=== PATIENT | male | born 1945 | race Caucasian/White ===

== ENCOUNTER → 2017-07-05 | Outpatient (CLI) | payer OTHER ==
[2017-07-05 12:12] LABS: BASO % 0.6 %; BASO ABS # 0.04 K/uL (0-0.2); COMPLETE YES; EOS % 2.4 %; HEMATOCRIT 45.2 % (42-52); IG% 0.1 %; LYMPH % 19.5 %; LYMPH ABS # 1.35 K/uL (1.2-3.4); MEAN CORPUSCULAR HEMOGLOBIN 31.1 pg (25-34); MEAN CORPUSCULAR HGB CONC 33.4 g/dl (32-36); MEAN PLATELET VOLUME 11.5 fL (7.4-10.4); MONO % 8.1 %; NEUT % 69.3 %; PLATELET COUNT 180 K/uL (130-400); RED BLOOD COUNT 4.86 M/uL (4.7-6.1); WHITE BLOOD COUNT 6.94 K/uL (4.8-10.8)
[2017-07-05 13:02] LABS: ALT/SGPT 24 U/L (12-78); BLOOD UREA NITROGEN 34 mg/dl (7-18); BUN/CREATININE RATIO 25.9 (10-20); CALCIUM 9.1 mg/dl (8.5-10.1); CARBON DIOXIDE 27 mmol/L (21-32); CHLORIDE 105 mmol/L (98-107); CHOLESTEROL 88 mg/dl (0-200); GLUCOSE 102 mg/dl (70-99); POTASSIUM 3.8 mmol/L (3.5-5.1); SODIUM 139 mmol/L (136-145); TRIGLYCERIDES 122 mg/dl (0-150); VERY LOW DENSITY LIPOPROT CALC 24 mg/dl
[2017-07-05 13:05] LABS: ALB/GLOB RATIO 0.8 (0.9-2); ALKALINE PHOSPHATASE 45 U/L (45-117); AST/SGOT 23 U/L (15-37); CHOLESTEROL/HDL RATIO 2.3; HDL CHOLESTEROL 38 mg/dl; LDL CHOLESTEROL CALCULATED 26 mg/dl
== END | disposition home or self-care (01) ==
LOC: C.LABPBG 07:53
PROVIDERS: ATTEND Internal Medicine
DX: G47.33 Obstructive sleep apnea (adult) (pediatric) (principal); M10.9 Gout, unspecified

== ENCOUNTER → 2017-10-25 | Outpatient (CLI) | payer OTHER ==
[2017-10-25 12:48] LABS: BLOOD UREA NITROGEN 26 mg/dl (7-18); CREATININE 1.11 mg/dl (0.60-1.40)
== END | disposition home or self-care (01) ==
LOC: C.LABPBG 10:22
PROVIDERS: ATTEND Neuromusculoskeletal Medicine & OMM
DX: R97.20 Elevated prostate specific antigen [PSA] (principal); N40.0 Benign prostatic hyperplasia without lower urinary tract symptoms

== ENCOUNTER 2021-07-01 11:42 | Observation (INO) ==
[2021-07-01] MEDS ORDERED: HYDROmorphone INJ 0.5 MG/0.5 ML SYR ONE (11:49)
[2021-07-01] MEDS ORDERED: MoRPHine SULFATE 4 MG/ML 1 ML CARP\\VIAL IV PRN (11:50)
[2021-07-01] MEDS ORDERED: SODIUM CHLORIDE 0.9% 1000ML 1,000 ML IV STA (11:50)
[2021-07-01] MEDS ORDERED: ONDANSETRON INJ 2 MG/ML 2 ML VIAL IV STA (11:50)
--- NOTE | 2021-07-01 11:58 | Emergency Department Note ---
Impression & Plan Incarcerated right inguinal hernia ED Provider Note NAME: ANAND PATEL AGE: 76 SEX: M : 1945 ARRIVES VIA: Ambulance INFORMANT: Patient, EMS ED PROVIDER(S): Carlos Russo DO CHIEF COMPLAINT: Abdominal pain HPI: The patient is a 76-year-old male who presented to the emergency department by ambulance for an evaluation of abdominal pain. The patient was noted to have a right inguinal hernia over the last month. Symptoms have slowly been worsening. The patient presents emergency department today because of nausea vo miting and worsening pain in his right lower quadrant. He states normally the hernia will reduce somewhat but this morning he has been able to reduce the hernia. He called 911. He received pain medicine and nausea medicine prior to arrival. He has had no fever or cough. He was not seen by his primary care physician recently but was seen initially when he started having the symptoms of hernia. He has a history of a similar episode on the left side. He was not seen by a surgeon. Pain he states is moderate to severe. The patient states the pain is worsened with any movement or palpation of the lower abdomen. ROS: See above HPI for pertinent positives & negatives. A total of 10 systems reviewed and were otherwise negative. PAST MEDICAL HISTORY: See Below PAST SURGICAL HISTORY: See Below FAMILY HISTORY: See Below SOCIAL HISTORY: See Below HOME MEDICATIONS: See Below ALLERGIES: See Below VITALS: See Below PHYSICAL EXAMINATION: GENERAL: The patient is awake and alert. The patient is very anxious appearing and appears to be in severe pain. EYES: The conjunctivae are clear. The pupils are round and reactive. EARS, NOSE, MOUTH AND THROAT: The nose is without any evidence of any deformity. NECK: The neck is nontender and supple. RESPIRATORY: Normal respiratory effort is noted there is no evidence of wheezing rhonchi or rales CARDIOVASCULAR: Regular rate and rhythm noted there no murmurs rubs or gallops normal S1 normal S2. GASTROINTESTINAL: The abdomen is distended and significantly tender especially in the right lower quadrant. There is mild guarding in the right lower quadrant. : There is a large right inguinal hernia noted. It is very tender and difficult to palpate without severe pain to the patient. This area is unable to be reduced at this time. MUSCULOSKELETAL/EXTREMITIES: There is no evidence of gross deformity full range of motion is noted in the hips and shoulders. SKIN: Skin is cool and diaphoretic. There was no significant pedal edema. NEUROLOGIC: Patient is awake alert and oriented x3. MEDICAL DECISION MAKING: The patient is a 76-year-old male who presented to the emergency department for an evaluation of abdominal pain and vomiting. The patient has a history of a r ight inguinal hernia. This appears to have become incarcerated after having a bowel movement prior to arrival. The patient was in very severe pain. He was treated multiple times with pain medication. Multiple attempts were made to reduce the hernia however I was unsuccessful. I discussed his case with the on- call general surgeon. He was evaluated in the emergency department by general surgery. He was felt to be a good candidate for surgical intervention. The patient was agreeable to this plan. He was taken directly to the OR for surgical intervention. Triage Nursing notes reviewed. Prior medical records reviewed Vital Signs: reviewed and remarkable for hypotension and tachycardia. Differential diagnosis: Etiologies such as appendicitis, diverticulitis, obstruction, inflammatory bowel disease, renal colic, PUD, biliary pathology, pancreatitis, mesenteric ischemia, aortic pathology, infections, genitourinary, UTI, perforated viscus, as well as others were entertained. ER treatment provided: See below Diagnostics interpreted by me: ECG: EKG was obtained in the emergency department. My interpretation is sinus bradycardia 53 bpm. First-degree AV block was noted. Right bundle branch block pattern was noted. No previous tracing was available For comparison. Cardiac Monitoring: An order was placed for continuous cardiac monitoring. The monitor shows a rate of 101 bpm with sinus tachycardia rhythm. Laboratory studies: As stated above and show below. Imaging studies: See below Consultation(s): 1200: I discussed this case with Debora Xiao who was covering for general surgery. They will evaluate the patient as soon as possible in the emergency department. ] Past Med/Surg History Medical History (Updated 07/01/21 @ 18:23 by Carlos Russo DO) Arthritis, multiple joint involvement Hypertension Obstructive sleep apnea, adult Surgical History H/O oral surgery S/P hernia repair 1982-Inguinal hernia S/P knee surgery Left knee-1983 Family History Mother Brain tumor Hypertension Father Lymphoma Denies family history of Ovarian cancer Prostate cancer Myocardial infarction Breast cancer Colorectal cancer Social History Smoking Status: Former smoker Age Started Using Tobacco: 18; Age Quit Using Tobacco: 39; Cigarettes Per Day: 6-10; Second Hand Exposure: No; Hx Alcohol Use: Yes Alcohol type: beer Alcohol Intake Frequency: Monthly or Less Hx Substance Use: No Preferred Language: Mauritian Communication Ability: Effective Visual Impairment: Limited Hearing Ability: Use of Hearing Aid Nuclear Weapons Specialist Required: No Beliefs That Will Affect Care: None marital status: Current Living Situation: Spouse and Family current occupational status: retired Feels Safe at Home: Yes Childhood Exposure to Second-Hand Smoke: Yes caffeine: Yes (Coffee x 3-4 per day.) during the past year weight has: remained stable Dental Care, Regularly: No Physical Activity Frequency: 1-2 Times per Week Seatbelt Use: always Sunscreen Use: No Assistive Devices: Glasses Allergies Allergies Allergy/AdvReac Type Severity Reaction Status Date / Time codeine AdvReac NOSEBLEED Verified 12/22/20 08:35 Home Meds Home Medications Medication Instructions Recorded Confirmed cholecalciferol (vitamin D3) 50 50 mcg PO DAILY 12/22/20 12/22/20 mcg (2,000 unit) capsule Previous Rx's Medication Instructions Recorded allopurinol 100 mg tablet 200 mg PO DAILY #180 tab 09/08/20 hydrochlorothiazide 25 mg tablet 25 mg PO DAILY #90 tab 09/08/20 lisinopril 30 mg tablet 30 mg PO DAILY #90 tab 09/08/20 metoprolol tartrate 25 mg tablet 25 mg PO BID #180 tab 09/08/20 simvastatin 40 mg tablet 40 mg PO DAILY #90 tab 09/08/20 tamsulosin 0.4 mg capsule 0.4 mg PO DAILY #90 cap 06/15/21 tamsulosin 0.4 mg capsule 0.4 mg PO HS #14 cap 06/15/21 Results & Data (ED) Vital Signs Vital Signs - 24 hr 07/01/21 11:15 07/01/21 11:45 07/01/21 11:50 Temperature 36.4 C L 36.6 C Temperature Source Oral Oral Pulse Rate 59 L 59 L Pulse Rate [Left Finger] Pulse Rhythm Regular Regular Pulse Rhythm [Left Finger] Pulse Strength Normal Pulse Strength [Left Finger] Respiratory Rate 20 22 Respiratory Effort / Characteristics Non-Labored Spontaneous Nasal Congestion Respiratory Depth Normal Respiratory Pattern Blood Pressure 102/59 L Blood Pressure [Left Arm] Blood Pressure Mean 73 Blood Pressure Mean [Left Arm] Blood Pressure Position Lying Blood Pressure Position [Left Arm] Pulse Oximetry 99 99 Oxygen Delivery Method Room Air Room Air Sepsis Recent Fever Within 48 Hours No Sepsis New/Unexplained Change in Mental Status No Sepsis Action Taken by Nursing No Action Required 07/01/21 12:34 07/01/21 12:44 07/01/21 12:46 Temperature 36.5 C Temperature Source Oral Pulse Rate 77 80 Pulse Rate [Left Finger] 71 Pulse Rhythm Pulse Rhythm [Left Finger] Regular Pulse Strength Pulse Strength [Left Finger] Normal Respiratory Rate 29 H 18 27 H Respiratory Effort / Characteristics Non-Labored Spontaneous Respiratory Depth Normal Respiratory Pattern Regular Blood Pressure 177/89 H 172/104 H Blood Pressure [Left Arm] 177/89 H Blood Pressure Mean 118 126 Blood Pressure Mean [Left Arm] 118 Blood Pressure Position Blood Pressure Position [Left Arm] Lying Pulse Oximetry 100 99 99 Oxygen Delivery Method Room Air Sepsis Recent Fever Within 48 Hours Sepsis New/Unexplained Change in Mental Status Sepsis Action Taken by Detention Medications Current Medication List: was personally reviewed by me Laboratory Data Attestation: I reviewed the patient's lab results. Result diagrams: 07/02/21 06:36 07/01/21 11:23 Lab Results 07/01/21 07/01/21 07/01/21 Range/Units 11:23 11:23 11:23 WBC 11.36 H (4.8-10.8) K/uL RBC 4.79 (4.7-6.1) M/uL Hgb 15.5 (14.0-18.0) g/dL Hct 44.8 (42-52) % MCV 93.5 (80-100) fL MCH 32.4 (25-34) pg MCHC 34.6 (32-36) g/dL RDW Std Deviation 48.0 H (36.4-46.3) fL RDW Coeff of Maurice 14.1 (11.5-14.5) % Plt Count 193 (130-400) K/uL MPV 11.4 H (7.4-10.4) fL Immature Gran % (Auto) 0.2 % Neut % (Auto) 86.4 % Lymph % (Auto) 8.7 % [place] % (Auto) 3.8 % Eos % (Auto) 0.7 % Baso % (Auto) 0.2 % Neut # (Auto) 9.82 H (1.4-6.5) K/uL Lymph # (Auto) 0.99 L (1.2-3.4) K/uL [place] # (Auto) 0.43 (0.11-0.59) K/uL Eos # (Auto) 0.08 (0-0.5) K/uL Baso # (Auto) 0.02 (0-0.2) K/uL Immature Gran # (Auto) 0.02 (0.00-0.02) K/uL PT Cancelled INR Cancelled APTT Cancelled PTT Ratio Cancelled Sodium 141 (136-145) mmol/L Potassium 3.4 L (3.5-5.1) mmol/L Chloride 107 (98-107) mmol/L Carbon Dioxide 24 (21-32) mmol/L Anion Gap 10.0 (3-11) BUN 23 H (7-18) mg/dl Creatinine 1.25 (0.6-1.4) mg/dl Est Cr Clr Drug Dosing 50.3 ml/min Est GFR ( Amer) 64.4 ml/min Est GFR (Non-Af Amer) 55.6 ml/min BUN/Creatinine Ratio 18.5 (10-20) Glucose 152 H (70-99) mg/dl Calcium 9.5 (8.5-10.1) mg/dl Total Bilirubin 0.5 (0.2-1) mg/dl AST 20 (15-37) U/L ALT 25 (12-78) U/L Alkaline Phosphatase 44 L (45-117) U/L Troponin I < 0.015 (0-0.045) ng/ml Total Protein 8.1 (6.4-8.2) gm/dl Albumin 3.7 (3.4-5.0) gm/dl Globulin 4.4 H (2.5-4.0) gm/dl Albumin/Globulin Ratio 0.8 L (0.9-2) Lipase 213 (73-393) U/L COVID-19 Eval Order SARS-CoV-2, RNA, NAAT (NEGATIVE) 07/01/21 07/01/21 07/01/21 Range/Units 12:08 12:08 12:53 WBC (4.8-10.8) K/uL RBC (4.7-6.1) M/uL Hgb (14.0-18.0) g/dL Hct (42-52) % MCV (80-100) fL MCH (25-34) pg MCHC (32-36) g/dL RDW Std Deviation (36.4-46.3) fL RDW Coeff of Maurice (11.5-14.5) % Plt Count (130-400) K/uL MPV (7.4-10.4) fL Immature Gran % (Auto) % Neut % (Auto) % Lymph % (Auto) % [place] % (Auto) % Eos % (Auto) % Baso % (Auto) % Neut # (Auto) (1.4-6.5) K/uL Lymph # (Auto) (1.2-3.4) K/uL [place] # (Auto) (0.11-0.59) K/uL Eos # (Auto) (0-0.5) K/uL Baso # (Auto) (0-0.2) K/uL Immature Gran # (Auto) (0.00-0.02) K/uL PT 10.9 INR 1.1 APTT 26.2 PTT Ratio 1.0 Sodium (136-145) mmol/L Potassium (3.5-5.1) mmol/L Chloride (98-107) mmol/L Carbon Dioxide (21-32) mmol/L Anion Gap (3-11) BUN (7-18) mg/dl Creatinine (0.6-1.4) mg/dl Est Cr Clr Drug Dosing ml/min Est GFR ( Amer) ml/min Est GFR (Non-Af Amer) ml/min BUN/Creatinine Ratio (10-20) Glucose (70-99) mg/dl Calcium (8.5-10.1) mg/dl Total Bilirubin (0.2-1) mg/dl AST (15-37) U/L ALT (12-78) U/L Alkaline Phosphatase (45-117) U/L Troponin I (0-0.045) ng/ml Total Protein (6.4-8.2) gm/dl Albumin (3.4-5.0) gm/dl Globulin (2.5-4.0) gm/dl Albumin/Globulin Ratio (0.9-2) Lipase (73-393) U/L COVID-19 Eval Order Covid19 IDNow [facility] SARS-CoV-2, RNA, NAAT NEGATIVE (NEGATIVE) Administered Medications Lactated Ringer's (Lr) 1,000 mls @ 80 mls/hr IV .[id number] [facility] Stop: 07/31/21 16:49 Last Infusion: 07/02/21 05:43 Dose: 80 mls/hr Documented by: [id number] Admin: 07/02/21 05:26 Dose: 80 mls/hr Documented by: [id number] Infusion: 07/02/21 05:26 Dose: 80 mls/hr Documented by: [id number] Admin: 07/01/21 18:39 Dose: 80 mls/hr Documented by: [id number] Cefazolin Sodium (Ancef 1000mg) 1,000 mg in 7.5 mls @ 2.5 mls/min IV Q8H [facility] Stop: 07/02/21 20:59 Last Admin: 07/02/21 12:40 Dose: 2.5 mls/min Documented by: [id number] Admin: 07/02/21 05:23 Dose: 2.5 mls/min Documented by: [id number] Admin: 07/01/21 20:33 Dose: 2.5 mls/min Documented by: [id number] Discontinued Medications Bacitracin (Bacitracin Oint 15 Gm Tube) Confirm Administered Dose 45 appln .ROUTE .STK-MED ONE Stop: 07/01/21 12:36 Last Admin: 07/01/21 14:57 Dose: 1 appln Documented by: [id number] Bupivacaine HCl (Bupivacaine 0.5 % 5 Mg/1 Ml Mpf 30ml Vial) Confirm Administered Dose 30 ml .ROUTE .STK-MED ONE Stop: 07/01/21 12:36 Last Admin: 07/01/21 14:58 Dose: 20 ml Documented by: [id number] Cefazolin Sodium (Cefazolin 2,000 Mg/15 Ml Iv Push) Confirm Administered Dose 2,000 mg IV .STK-MED ONE Stop: 07/01/21 13:10 Last Admin: 07/01/21 13:40 Dose: Not Given Documented by: [id number] Hydromorphone HCl (Hydromorphone Inj 0.5 Mg/0.5 Ml Syr) Confirm Administered Dose 0.5 mg .ROUTE .STK-MED ONE Stop: 07/01/21 11:50 Last Admin: 07/01/21 11:50 Dose: 0.5 mg Documented by: [id number] Hydromorphone HCl (Hydromorphone Inj 0.5 Mg/0.5 Ml Syr) 0.5 mg IV Q15M PRN PRN Reason: Pain Stop: 07/15/21 11:49 Last Admin: 07/01/21 12:51 Dose: 0.5 mg Documented by: [id number] Admin: 07/01/21 12:32 Dose: 0.5 mg Documented by: [id number] Admin: 07/01/21 12:03 Dose: 0.5 mg Documented by: [id number] Sodium Chloride (Nss 1000ml) 1,000 mls @ 999 mls/hr IV .Q1H1M STA Stop: 07/01/21 12:50 Last Infusion: 07/01/21 13:05 Dose: 0 mls/hr Documented by: [id number] Admin: 07/01/21 11:50 Dose: 999 mls/hr Documented by: [id number] Cefazolin Sodium (Ancef 2000mg) 2,000 mg in 15 mls @ 3.75 mls/min IV PREOP ONE Stop: 07/01/21 13:09 Last Admin: 07/01/21 13:35 Dose: 3.75 mls/min Documented by: [id number] Lidocaine HCl (Lidocaine 1% Local 20 Ml Vial) Confirm Administered Dose 20 ml .ROUTE .STK-MED ONE Stop: 07/01/21 12:36 Last Admin: 07/01/21 14:58 Dose: 20 ml Documented by: [id number] Morphine Sulfate (Morphine Sulfate 4 Mg/Ml 1 Ml Carp\Vial) 4 mg IV Q15M PRN PRN Reason: Pain Stop: 07/15/21 11:49 Last Admin: 07/01/21 12:20 Dose: 4 mg Documented by: [id number] Ondansetron HCl (Ondansetron Inj 2 Mg/Ml 2 Ml Vial) 4 mg IV NOW STA Stop: 07/01/21 11:51 Last Admin: 07/01/21 12:03 Dose: 4 mg Documented by: [id number] Imaging Data Radiologist's Impression: Chest X-Ray 07/01/21 11:50 XR chest 1V portable CLINICAL HISTORY: RLQ pain COMPARISON STUDY: No previous studies for comparison. FINDINGS: Lung volumes are diminished. There is apparent elevation/eventration of the right hemidiaphragm. There is apparent pulmonary vascular congestion without overt pulmonary edema. No consolidation is identified. IMPRESSION: 1. Low lung volumes. Right basilar opacity which likely reflects elevation/eventration of the right hemidiaphragm. However, follow-up PA and lateral chest radiographs are recommended. 2. Pulmonary vascular congestion without overt pulmonary edema. ACT 112: Negative or not required by law. Electronically signed by: Thaddeus Hamm M.D. 07/01/2021 1:17 PM KUB X-Ray 07/01/21 11:50 XR KUB/Abdomen 1 view CLINICAL HISTORY: rlwq pain COMPARISON STUDY: No previous studies for comparison. FINDINGS: Slightly dilated loop of small bowel measuring 3.4 cm in diameter is seen within right upper quadrant. Few loops of large bowel are nondilated. Paucity of gas is seen within left lower quadrant and pelvic region which could be due to fluid-fi lled loops of bowel, size cannot be evaluated. Right hemidiaphragm is outside of [id number] which makes evaluation suboptimal. Mild degenerative changes of the spine. IMPRESSION: 1. Mildly dilated loop of small bowel within the right upper quadrant. Short- term follow-up is suggested. 2. Paucity of gas within left lower quadrant and pelvis which could be due to fluid-filled loops of bowel. 3. Right hemidiaphragm is partially outside of [id number]. ACT 112: Negative or not required by law. The above report was generated using voice recognition software. It may contain grammatical, syntax or spelling errors. Electronically signed by: Manuela Haddad DO 07/01/2021 1:39 PM Discharge Plan Visit Data Chief Complaint: Abdominal Pain Stated Complaint: AB PAIN ED Provider: Carlos Russo Discharge Problem: Incarcerated right inguinal hernia Patient Disposition: Admitted As Inpatient Condition: Good Discharge Instructions Interventions: ED Discharge Assessment Last Done: 07/01/21 13:06
[2021-07-01] MEDS: HYDROmorphone INJ 0.5 MG/0.5 ML SYR IV PRN ×3 (12:03→12:51)
[2021-07-01 12:25] LABS: Basophils # (auto) 0.02 K/uL (0-0.2); Basophils % (auto) 0.2 %; Eosinophils # (auto) 0.08 K/uL (0-0.5); Eosinophils % (auto) 0.7 %; Hematocrit (blood only) 44.8 % (42-52); Hemoglobin 15.5 g/dL (14.0-18.0); Immature Granulocytes # (auto) 0.02 K/uL (0.00-0.02); Immature Granulocytes % (auto) 0.2 %; Lymphocytes # (auto) 0.99 K/uL (1.2-3.4); Lymphocytes % (auto) 8.7 %; Mean Corpuscular Hemoglobin 32.4 pg (25-34); Mean Corpuscular Hgb Conc 34.6 g/dL (32-36); Mean Corpuscular Volume 93.5 fL (80-100); Mean Platelet Volume 11.4 fL (7.4-10.4); Monocytes # (auto) 0.43 K/uL (0.11-0.59); Monocytes % (auto) 3.8 %; Neutrophils # (auto) 9.82 K/uL (1.4-6.5); Neutrophils % (auto) 86.4 %; Platelet Count 193 K/uL (130-400); RDW Coefficient of Variation 14.1 % (11.5-14.5); Red Blood Count 4.79 M/uL (4.7-6.1); White Blood Count 11.36 K/uL (4.8-10.8)
[2021-07-01] MEDS ORDERED: BUPIVACAINE 0.5 % 5 MG/1 ML MPF 30ML VIAL ONE (12:35)
[2021-07-01] MEDS ORDERED: LIDOCAINE 1% LOCAL 20 ML VIAL ONE (12:35)
[2021-07-01] MEDS ORDERED: BACITRACIN OINT 15 GM TUBE ONE (12:35)
--- NOTE | 2021-07-01 12:40 | History & Physical Report ---
Date of Service July 01, 2021 Assessment & Plan (1) Incarcerated right inguinal hernia: Plan: 76 year-old male presented to ED via ambulance due to right groin pain and large incarcerated scrotal hernia. Large irreducible right inguinal hernia extending to scrotum causing scrotal edema and very tender to palpation. Abdomen is soft. Patient in distress due to pain but able to communication. Vitals stable. Plan: Discussed with patient need for operative repair given the incarcerated hernia and risk of strangulation and bowel ischemia. Informed consent obtained. COVID preop keep npo EKG preop performed Will get [address] Lou was present during part of my examination. Examined patient and obtained consent. I ( Sheela Lou MD) reviewed pt's H/P, I recommend to do open repair incarcerated right inguinal hernia possible with mesh, D/w benefits, risks and alternatives of the surgery, pt understood, he agrees with surgery, he signed informed consent, I answered all questions, pre-op antibiotic, History of Present Illness Chief Complaint: groin pain Primary Care Provider: Shantanu Armendariz MD Selvin is a 76 year-old male who presented to emergency department via ambulance due to right groin pain, enlarged hernia and vomiting that began this morning. Selvin states that he was having a bowel movement this morning and then noticed severe pain in his groin and then associated abdominal pain and vomiting. States he has known about a right groin hernia for a few months but never had this happen before. He has history of left inguinal hernia repair 20- 30 years ago. Last ate this morning , cereal but vomited. Last able to urinate was this morning. Rest of review of systems limited given patients distress secondary to pain. I entered the room while Dr. Russo was attempting to reduce the hernia but patient was in a lot of pain and hernia was unable to be reduced. Allergies Allergy/AdvReac Type Severity Reaction Status Date / Time codeine AdvReac NOSEBLEED Verified 12/22/20 08:35 Home Medications Medication Instructions Recorded Confirmed Type allopurinol 100 mg tablet 200 mg PO DAILY #180 tab 09/08/20 12/22/20 Rx hydrochlorothiazide 25 mg tablet 25 mg PO DAILY #90 tab 09/08/20 12/22/20 Rx lisinopril 30 mg tablet 30 mg PO DAILY #90 tab 09/08/20 12/22/20 Rx metoprolol tartrate 25 mg tablet 25 mg PO BID #180 tab 09/08/20 12/22/20 Rx simvastatin 40 mg tablet 40 mg PO DAILY #90 tab 09/08/20 12/22/20 Rx cholecalciferol (vitamin D3) 50 50 mcg PO DAILY 12/22/20 12/22/20 History mcg (2,000 unit) capsule tamsulosin 0.4 mg capsule 0.4 mg PO DAILY #90 cap 06/15/21 Rx tamsulosin 0.4 mg capsule 0.4 mg PO HS #14 cap 06/15/21 Rx Past Med/Surg History Medical History (Updated 07/01/21 @ 12:37 by Debora Xiao PA-C) Arthritis, multiple joint involvement Hypertension Obstructive sleep apnea, adult Surgical History H/O oral surgery S/P hernia repair 1982-Inguinal hernia S/P knee surgery Left knee-1983 Family History Mother Brain tumor Hypertension Father Lymphoma Denies family history of Ovarian cancer Prostate cancer Myocardial infarction Breast cancer Colorectal cancer Social History Smoking Status: Former smoker Age Started Using Tobacco: 18; Age Quit Using Tobacco: 39; Cigarettes Per Day: 6-10; Second Hand Exposure: No; Hx Alcohol Use: Yes Alcohol Intake Frequency: Monthly or Less Hx Substance Use: No Preferred Language: Upper Sorbian Communication Ability: Effective Visual Impairment: Limited Hearing Ability: Use of Hearing Aid Dumpman Required: No Beliefs That Will Affect Care: None marital status: Current Living Situation: Spouse current occupational status: retired Feels Safe at Home: Yes Childhood Exposure to Second-Hand Smoke: Yes caffeine: Yes (Coffee x 3-4 per day.) during the past year weight has: remained stable Dental Care, Regularly: No Physical Activity Frequency: 1-2 Times per Week Seatbelt Use: always Sunscreen Use: No Review of Systems Review of Systems: as per HPI, limited given patients distress Physical Exam Constitutional: + acute distress and cooperative; not ill appearing, not frail appearing, not combative and not diaphoretic Respiratory: normal respiratory effort, lungs clear to auscultation Cardiovascular: Rate/Rhythm: regular rhythm and + bradycardic Heart Sounds: normal S1 and normal S2 Gastrointestinal (Abdomen): Inspection/Auscultation: abdomen normal to inspection; abdomen not distended and + abnormal bowel sounds Percussion/Palpation: + abdomen tender (lower abdomen mostly on right side) and abdomen soft; no guarding and abdomen not rigid Large right inguinal hernia extending down to the scrotum that is incarcerated and nonreducible on examination. Skin: no rashes, warm and dry Psychiatric: Orientation: alert and oriented x 3 Genitourinary: + edematous scrotum and + inguinal hernia (large right inguinal scrotal hernia, irreducible, severely tender on exam) Results & Data Results & Data ([facility]) Vital Signs (Past 12 Hours) Vital Signs Temp Pulse Resp BP Pulse Ox 07/01/21 11:15 36.4 C L 59 L 20 102/59 L 99 Laboratory Results 07/01/21 07/01/21 07/01/21 Range/Units 12:08 12:08 11:23 WBC (4.8-10.8) K/uL RBC (4.7-6.1) M/uL Hgb (14.0-18.0) g/dL Hct (42-52) % MCV (80-100) fL MCH (25-34) pg MCHC (32-36) g/dL RDW Std Deviation (36.4-46.3) fL RDW Coeff of Maurice (11.5-14.5) % Plt Count (130-400) K/uL MPV (7.4-10.4) fL Immature Gran % (Auto) % Neut % (Auto) % Lymph % (Auto) % [place] % (Auto) % Eos % (Auto) % Baso % (Auto) % Neut # (Auto) (1.4-6.5) K/uL Lymph # (Auto) (1.2-3.4) K/uL [place] # (Auto) (0.11-0.59) K/uL Eos # (Auto) (0-0.5) K/uL Baso # (Auto) (0-0.2) K/uL Immature Gran # (Auto) (0.00-0.02) K/uL PT INR APTT PTT Ratio Sodium Pending Potassium Pending Chloride Pending Carbon Dioxide Pending Anion Gap Pending BUN Pending Creatinine Pending Est Cr Clr Drug Dosing Pending Est GFR ( Amer) Pending Est GFR (Non-Af Amer) Pending BUN/Creatinine Ratio Pending Glucose Pending Calcium Pending Total Bilirubin Pending AST Pending ALT Pending Alkaline Phosphatase Pending Troponin I Pending Total Protein Pending Albumin Pending Globulin Pending Albumin/Globulin Ratio Pending Lipase Pending COVID-19 [facility]-2, RNA, NAAT Pending 07/01/21 07/01/21 Range/Units 11:23 11:23 WBC 11.36 H (4.8-10.8) K/uL RBC 4.79 (4.7-6.1) M/uL Hgb 15.5 (14.0-18.0) g/dL Hct 44.8 (42-52) % MCV 93.5 (80-100) fL MCH 32.4 (25-34) pg MCHC 34.6 (32-36) g/dL RDW Std Deviation 48.0 H (36.4-46.3) fL RDW Coeff of Maurice 14.1 (11.5-14.5) % Plt Count 193 (130-400) K/uL MPV 11.4 H (7.4-10.4) fL Immature Gran % (Auto) 0.2 % Neut % (Auto) 86.4 % Lymph % (Auto) 8.7 % [place] % (Auto) 3.8 % Eos % (Auto) 0.7 % Baso % (Auto) 0.2 % Neut # (Auto) 9.82 H (1.4-6.5) K/uL Lymph # (Auto) 0.99 L (1.2-3.4) K/uL [place] # (Auto) 0.43 (0.11-0.59) K/uL Eos # (Auto) 0.08 (0-0.5) K/uL Baso # (Auto) 0.02 (0-0.2) K/uL Immature Gran # (Auto) 0.02 (0.00-0.02) K/uL PT Cancelled INR Cancelled APTT Cancelled PTT Ratio Cancelled Sodium Potassium Chloride Carbon Dioxide Anion Gap BUN Creatinine Est Cr Clr Drug Dosing Est GFR ( Amer) Est GFR (Non-Af Amer) BUN/Creatinine Ratio Glucose Calcium Total Bilirubin AST ALT Alkaline Phosphatase Troponin I Total Protein Albumin Globulin Albumin/Globulin Ratio Lipase COVID-19 Eval Order SARS-CoV-2, RNA, NAAT Code Status & VTE Plan VTE Prophylaxis Plan VTE Prophylaxis will be ordered: Yes
[2021-07-01 12:45] LABS: Albumin Level 3.7 gm/dl (3.4-5.0); BUN Creatinine Ratio 18.5 (10-20); Blood Urea Nitrogen 23 mg/dl (7-18); Calcium 9.5 mg/dl (8.5-10.1); Carbon Dioxide 24 mmol/L (21-32); Chloride 107 mmol/L (98-107); Creatinine Clr Calc Pharmacy 50.3 ml/min; Est GFR (African American) 64.4 ml/min; Est GFR (Non-African American) 55.6 ml/min; Glucose 152 mg/dl (70-99); Lipase 213 U/L (73-393); Potassium 3.4 mmol/L (3.5-5.1); Sodium 141 mmol/L (136-145)
[2021-07-01 12:50] LABS: Alanine Aminotransferase 25 U/L (12-78); Albumin Globulin Ratio 0.8 (0.9-2); Alkaline Phosphatase 44 U/L (45-117); Aspartate Aminotransferase 20 U/L (15-37); Bilirubin,Total 0.5 mg/dl (0.2-1); Globulin 4.4 gm/dl (2.5-4.0); Total Protein 8.1 gm/dl (6.4-8.2); Troponin I < 0.015 ng/ml (0-0.045)
[2021-07-01] MEDS ORDERED: PROPOFOL IV EMULSION 10 MG/ML 20 ML VIAL IV ONE (12:51)
[2021-07-01] MEDS ORDERED: LIDOCAINE 2% 2 ML VIAL/AMP(20MG/ML) INFIL ONE (12:51)
[2021-07-01] MEDS ORDERED: MIDAZOLAM HCL 1 MG/ML 2ML VIAL ONE (12:51)
[2021-07-01] MEDS ORDERED: NEOSTIGMINE METHYLSULFATE 1 MG/ML 10ML VIAL ONE (12:51)
[2021-07-01] MEDS ORDERED: GLYCOPYRROLATE 0.2 MG/ML VIAL ONE ×2 (12:51→14:22)
[2021-07-01] MEDS ORDERED: fentaNYL citrate 100 MCG/2 ML VIAL ONE ×2 (12:51)
[2021-07-01] MEDS ORDERED: ONDANSETRON INJ 2 MG/ML 2 ML VIAL ONE (12:51)
[2021-07-01] MEDS ORDERED: DEXAMETHASONE SOD INJ 4 MG/ML VIAL ONE (12:51)
[2021-07-01] MEDS ORDERED: ePHEDrine sulfate 50 MG/ML SYR ONE (13:03)
[2021-07-01] MEDS ORDERED: PHENYLEPHRINE 100MCG/ML 5ML SYR ONE (13:03)
[2021-07-01] MEDS ORDERED: ceFAZolin 2000MG 2,000 MG/15 ML SYR IV ONE (13:06)
--- NOTE | 2021-07-01 13:06 | History & Physical Bridge Note ---
Date of Service July 01, 2021 History & Physical Bridge Note I have examined the patient, reviewed the History & Physical and in the interval since the performance of the History & Physical I have noted the following changes of clinical significance: no changes noted
[2021-07-01] MEDS ORDERED: ceFAZolin 2,000 MG/15 ML IV PUSH IV ONE (13:09)
--- NOTE | 2021-07-01 13:18 | XRay Report ---
XR chest 1V portable CLINICAL HISTORY: RLQ pain COMPARISON STUDY: No previous studies for comparison. FINDINGS: Lung volumes are diminished. There is apparent elevation/eventration of the right hemidiaph ragm. There is apparent pulmonary vascular congestion without overt pulmonary edema. No consolidation is identified. IMPRESSION: 1. Low lung volumes. Right basilar opacity which likely reflects elevation/eventration of the right h emidiaphragm. However, follow-up PA and lateral chest radiographs are recommended. 2. Pulmonary vascular congestion without overt pulmonary edema. ACT 112: Negative or not required by law. Electronically signed by: Thaddeus Hamm M.D. 07/01/2021 1:17 PM
[2021-07-01 13:19] LABS: INR 1.1 (0.9-1.1); Partial Thromboplastin Time 26.2 Seconds (21.0-31.0); Prothrombin Time 10.9 Seconds (9.0-12.0)
--- NOTE | 2021-07-01 13:28 | Anesthesiology Consultation ---
Date of Service July 01, 2021 Assessment & Plan (1) Encounter for pre-operative examination: Chart Review Chart Review: Acceptable Risk for Surgery and Patient NOT seen in Pre Admission Testing Consults Requested none History Surgery Operation Date: 07/01/21 09:40 Proposed Procedures p Right Incarcerated Inguinal Hernia Repair - Sheela Lou MD Height/Weight Height: 5 ft 9 in Weight: 81.4 kg Allergies Allergy/AdvReac Type Severity Reaction Status Date / Time codeine AdvReac NOSEBLEED Verified 12/22/20 08:35 Medications Home Medications Medication Instructions Recorded Confirmed Last Taken allopurinol 100 mg tablet 200 mg PO DAILY #180 tab 09/08/20 12/22/20 Unknown hydrochlorothiazide 25 mg tablet 25 mg PO DAILY #90 tab 09/08/20 12/22/20 Unknown lisinopril 30 mg tablet 30 mg PO DAILY #90 tab 09/08/20 12/22/20 Unknown metoprolol tartrate 25 mg tablet 25 mg PO BID #180 tab 09/08/20 12/22/20 Unknown simvastatin 40 mg tablet 40 mg PO DAILY #90 tab 09/08/20 12/22/20 Unknown cholecalciferol (vitamin D3) 50 50 mcg PO DAILY 12/22/20 12/22/20 Unknown mcg (2,000 unit) capsule tamsulosin 0.4 mg capsule 0.4 mg PO DAILY #90 cap 06/15/21 Unknown tamsulosin 0.4 mg capsule 0.4 mg PO HS #14 cap 06/15/21 Unknown Active Medications Generic Name Dose Route Start Last Admin Trade Name Freq PRN Reason Stop Dose Admin Hydromorphone HCl 0.5 mg 07/01/21 11:50 07/01/21 12:51 Hydromorphone Inj 0.5 Mg/0.5 Ml Syr IV 07/15/21 11:49 0.5 mg Q15M PRN Administration Pain Morphine Sulfate 4 mg 07/01/21 11:50 07/01/21 12:20 Morphine Sulfate 4 Mg/Ml 1 Ml Carp\Vial IV 07/15/21 11:49 4 mg Q15M PRN Administration Pain NPO Date Last Intake of Fluids: 07/01/21 Time Last Intake of Fluids: 06:00 Date Last Intake of Solids: 07/01/21 Time Last Intake of Solids: 06:00 Last Intake of Solids Comment: patient had emesis after eating this morning. Past Medical History Medical History (Updated 07/01/21 @ 13:27 by Reena Trujillo MD) Arthritis, multiple joint involvement Hypertension Obstructive sleep apnea, adult Exercise / Class Metabolic Activity III < 4 Walking/Shop/Light housework Past Family History Family History Mother Brain tumor Hypertension Father Lymphoma Denies family history of Ovarian cancer Prostate cancer Myocardial infarction Breast cancer Colorectal cancer Past Surgical History Surgical History H/O oral surgery S/P hernia repair 1982-Inguinal hernia S/P knee surgery Left knee-1983 Social History Smoking Status: Former smoker Smoking cigarettes per day: 6-10 Hx Alcohol Use: Yes Hx Substance Use: No Physical Exam Vital Signs Last Vital Signs Temp 36.5 C 07/01/21 12:44 Pulse 80 07/01/21 12:46 Resp 27 H 07/01/21 12:46 BP 172/104 H 07/01/21 12:46 Pulse Ox 99 07/01/21 12:46 Testing Laboratory Results 07/01/21 11:23 07/01/21 11:23 PT 10.9 Seconds (9.0-12.0) 07/01/21 12:53 INR 1.1 (0.9-1.1) 07/01/21 12:53 APTT 26.2 Seconds (21.0-31.0) 07/01/21 12:53 Electrocardiogram Date: 07/01/21 Findings: + SB @ (53) PACs, RBBB
--- NOTE | 2021-07-01 13:40 | XRay Report ---
XR KUB/Abdomen 1 view CLINICAL HISTORY: rlwq pain COMPARISON STUDY: No previous studies for comparison. FINDINGS: Slightly dilated loop of small bowel measuring 3.4 cm in diameter is seen within right upper quadrant . Few loops of large bowel are nondilated. Paucity of gas is seen within left lower quadrant and pelv ic region which could be due to fluid-filled loops of bowel, size cannot be evaluated. Right hemidiaphragm is outside of [id number] which makes evaluation suboptimal. Mild degenerative changes of the spine. IMPRESSION: 1. Mildly dilated loop of small bowel within the right upper quadrant. Short-term follow-up is sugge sted. 2. Paucity of gas within left lower quadrant and pelvis which could be due to fluid-filled loops of bowel. 3. Right hemidiaphragm is partially outside of [id number]. ACT 112: Negative or not required by law. The above report was generated using voice recognition software. It may contain grammatical, syntax o r spelling errors. Electronically signed by: Manuela Haddad DO 07/01/2021 1:39 PM
[2021-07-01] MEDS ORDERED: ATROPINE SULFATE 0.1 MG/ML 10ML SYR IV PRN (13:58)
[2021-07-01] MEDS ORDERED: fentaNYL citrate 100 MCG/2 ML VIAL IV PRN (13:58)
[2021-07-01] MEDS ORDERED: ePHEDrine sulfate 50 MG/ML AMP IV PRN (13:58)
[2021-07-01] MEDS ORDERED: ONDANSETRON INJ 2 MG/ML 2 ML VIAL IV PRN (13:58)
[2021-07-01] MEDS ORDERED: SUCCINYLCHOLINE 100MG/5ML SYR IV ONE (14:12)
[2021-07-01] MEDS ORDERED: ROCURONIUM BROMIDE 10 MG/ML 5 ML VIAL IV ONE (14:13)
[2021-07-01] MEDS ORDERED: PHENYLEPHRINE HCL 10 MG/ML VIAL ONE (14:29)
--- NOTE | 2021-07-01 15:00 | Post Operative Brief Note ---
Immediate Post Op Note v1 Date of Surgery July 01, 2021 Pre & Post Diagnosis Operation Date: 07/01/21 09:40 Pre-Op Diagnosis: incarcerated Right inguinal hernia Post-Op Diagnosis: incarcerated Right inguinal hernia I identified the patient and participated in the time-out.: Yes Procedure Operation Date: 07/01/21 09:40 Actual Procedures open repair Right Incarcerated Inguinal Hernia with mesh(Right) - Sheela Lou MD Surgeon Sheela Lou MD Reed Worker LESLIE Pedroza Estimated Blood Loss 10 Findings Consistent with Post-Op Diagnosis incarcerated right indirect inguinal hernia, contain small bowel, Fluids 1200ml Specimens hernia sac Drains Jerry Catheter (Placed in OR by Micah Laguerre RN, and removed after procedure) Anesthesia Type General Complications none Disposition Accompanied Patient To Recovery: Yes
[2021-07-01] MEDS ORDERED: SUGAMMADEX SODIUM 200 MG/2 ML VIAL IV ONE (15:17)
--- NOTE | 2021-07-01 16:19 | Anesthesiology Progress Note ---
Date of Service July 01, 2021 Anesthesia Post Procedure Vital Signs Vital Signs: Temp Pulse Pulse Pulse Resp BP BP 07/01/21 15:55 36.3 C L 111 H 16 122/77 07/01/21 15:50 124 H 22 120/75 07/01/21 15:40 107 H 14 103/68 07/01/21 15:30 96 H 12 96/63 L 07/01/21 15:24 36.3 C L 107 H 16 129/50 L 07/01/21 12:46 80 27 H 172/104 H 07/01/21 12:44 36.5 C 71 18 177/89 H 07/01/21 12:34 77 29 H 177/89 H 07/01/21 11:50 59 L 22 07/01/21 11:45 36.6 C 07/01/21 11:15 36.4 C L 59 L 20 102/59 L Pulse Ox 07/01/21 15:55 92 07/01/21 15:50 07/01/21 15:40 94 07/01/21 15:30 93 07/01/21 15:24 96 07/01/21 12:46 99 07/01/21 12:44 99 07/01/21 12:34 100 07/01/21 11:50 99 07/01/21 11:45 07/01/21 11:15 99 Pain Intensity Testicles: Pain Intensity: 9 Notes Mental Status: see notes below Patient Amnestic to Procedure: Yes Nausea / Vomiting: adequately controlled Pain: adequately controlled Airway Patency, RR, SpO2: stable & adequate BP & HR: stable & adequate Hydration State: stable & adequate Anesthetic Complications: see Notes below Notes: Pt hemodynamically stable and off oxygen in PACU. Pain appears to be well controlled. Pt currently delerius and not oriented to person/place/time. Trying to get out of bed, pull out IV, and pinching PACU staff. Post anesthesia delirium should improve significantly by tomorrow. Tonight pt may require addit ional support including possible 1 on 1. Floor notified and call placed to admitting hospitalist team to make sure they are aware.
[2021-07-01] MEDS ORDERED: HYDROmorphone INJ 0.5 MG/0.5 ML SYR IV PRN (16:50)
[2021-07-01] MEDS ORDERED: oxyCODONE/ACETAMINOPHEN 5mg/325mg TAB PO PRN (16:50)
--- NOTE | 2021-07-01 17:27 | Hospitalist Consultation ---
Date of Consultation July 01, 2021 History of Present Illness Attending Physician: Sheela Lou MD Allergies Allergy/AdvReac Type Severity Reaction Status Date / Time codeine AdvReac NOSEBLEED Verified 12/22/20 08:35 Home Medications Medication Instructions Recorded Confirmed Type allopurinol 100 mg tablet 200 mg PO DAILY #180 tab 09/08/20 12/22/20 Rx hydrochlorothiazide 25 mg tablet 25 mg PO DAILY #90 tab 09/08/20 12/22/20 Rx lisinopril 30 mg tablet 30 mg PO DAILY #90 tab 09/08/20 12/22/20 Rx metoprolol tartrate 25 mg tablet 25 mg PO BID #180 tab 09/08/20 12/22/20 Rx simvastatin 40 mg tablet 40 mg PO DAILY #90 tab 09/08/20 12/22/20 Rx cholecalciferol (vitamin D3) 50 50 mcg PO DAILY 12/22/20 12/22/20 History mcg (2,000 unit) capsule tamsulosin 0.4 mg capsule 0.4 mg PO DAILY #90 cap 06/15/21 Rx tamsulosin 0.4 mg capsule 0.4 mg PO HS #14 cap 06/15/21 Rx Patient History Medical History (Updated 07/01/21 @ 13:27 by Reena Trujillo MD) Arthritis, multiple joint involvement Hypertension Obstructive sleep apnea, adult Surgical History H/O oral surgery S/P hernia repair 1982-Inguinal hernia S/P knee surgery Left knee-1983 Family History Mother Brain tumor Hypertension Father Lymphoma Denies family history of Ovarian cancer Prostate cancer Myocardial infarction Breast cancer Colorectal cancer Social History Smoking Status: Former smoker Age Started Using Tobacco: 18; Age Quit Using Tobacco: 39; Cigarettes Per Day: 6-10; Second Hand Exposure: No; Hx Alcohol Use: Yes Alcohol Intake Frequency: Monthly or Less Hx Substance Use: No Preferred Language: Cuban Communication Ability: Effective Visual Impairment: Limited Hearing Ability: Use of Hearing Aid Feed Mill Lab Technician Required: No Beliefs That Will Affect Care: None marital status: Current Living Situation: Spouse current occupational status: retired Feels Safe at Home: Yes Childhood Exposure to Second-Hand Smoke: Yes caffeine: Yes (Coffee x 3-4 per day.) during the past year weight has: remained stable Dental Care, Regularly: No Physical Activity Frequency: 1-2 Times per Week Seatbelt Use: always Sunscreen Use: No Assistive Devices: Denture - Upper and Glasses Results & Data Results & Data ([facility]) Vital Signs (Past 12 Hours) Vital Signs Temp Pulse Pulse Pulse Pulse Pulse Resp 07/01/21 17:00 36.7 C 102 H 16 07/01/21 16:30 36.7 C 123 H 20 07/01/21 16:05 16 07/01/21 15:55 36.3 C L 111 H 16 07/01/21 15:50 124 H 22 07/01/21 15:40 107 H 14 07/01/21 15:30 96 H 12 07/01/21 15:24 36.3 C L 107 H 16 07/01/21 12:46 80 27 H 07/01/21 12:44 36.5 C 71 18 07/01/21 12:34 77 29 H 07/01/21 11:50 59 L 22 07/01/21 11:45 36.6 C 07/01/21 11:15 36.4 C L 59 L 20 BP BP Pulse Ox 07/01/21 17:00 91/56 L 92 07/01/21 16:30 127/80 94 07/01/21 16:05 92/77 L 07/01/21 15:55 122/77 92 07/01/21 15:50 120/75 07/01/21 15:40 103/68 94 07/01/21 15:30 96/63 L 93 07/01/21 15:24 129/50 L 96 07/01/21 12:46 172/104 H 99 07/01/21 12:44 177/89 H 99 07/01/21 12:34 177/89 H 100 07/01/21 11:50 99 07/01/21 11:45 07/01/21 11:15 102/59 L 99 PG Care Time/CCT Total # of Minutes Spent Total Time Spent with Patient: Total time spent is greater than 50% in coordination of care (as documented) at patient's floor/unit and/or counseling patient: Coding
[2021-07-01] MEDS: LACTATED RINGER'S 1,000 ML IV SCH (18:39)
--- NOTE | 2021-07-01 19:04 | Electrocardiogram Report ---
Test Reason : Blood Pressure : / mmHG Vent. Rate : 053 BPM Atrial Rate : 053 BPM P-R Int : 196 ms QRS Dur : 136 ms QT Int : 498 ms P-R-T Axes : 048 -42 024 degrees QTc Int : 467 ms Poor data quality, interpretation may be adversely affected Sinus bradycardia with Premature atrial complexes Left axis deviation Right bundle branch block Abnormal ECG No previous ECGs available Confirmed by Angel Baires ([id number]) on 07/01/2021 7:04:31 PM Referred By: Sheela Lou Confirmed By:Gab Baires
[2021-07-01] MEDS: ceFAZolin 1000MG 1,000 MG/7.5 ML SYR IV SCH (20:33)
[2021-07-01 22:37] LABS: Appearance Urine Turbid (Clear); Bacteria Urine Automated Negative (Negative); Blood Urine 3+ (Negative); Color Urine Red; Epithelial Cell Urine Auto 0-5 /lpf (0-5); Glucose Urine UA Negative (Negative); Ketones Urine Negative (Negative); Leukocyte Esterase Urine 1+ (Negative); Nitrite Urine Negative (Negative); Protein Urine 2+ (Negative); RBC Urine Automated >30 /hpf (0-4); Specific Gravity Urine 1.023 (1.000-1.030); Urobilinogen Urine Negative (Negative)
[2021-07-01 22:41] LABS: Bilirubin Urine 1+ (Negative)
[2021-07-02] MEDS: ceFAZolin 1000MG 1,000 MG/7.5 ML SYR IV SCH ×2 (05:23→12:40)
[2021-07-02] MEDS: LACTATED RINGER'S 1,000 ML IV SCH (05:26)
[2021-07-02] MEDS ORDERED: ACETAMINOPHEN 325 MG TAB PO PRN (08:02)
[2021-07-02] MEDS ORDERED: ONDANSETRON INJ 2 MG/ML 2 ML VIAL IV PRN (08:03)
[2021-07-02 09:13] LABS: Hematocrit (blood only) 37.1 % (42-52); Hemoglobin 12.5 g/dL (14.0-18.0); Immature Granulocytes # (auto) 0.03 K/uL (0.00-0.02); Immature Granulocytes % (auto) 0.2 %; Lymphocytes # (auto) 0.48 K/uL (1.2-3.4); Lymphocytes % (auto) 3.8 %; Mean Corpuscular Hemoglobin 31.4 pg (25-34); Mean Corpuscular Hgb Conc 33.7 g/dL (32-36); Mean Corpuscular Volume 93.2 fL (80-100); Mean Platelet Volume 10.8 fL (7.4-10.4); Monocytes # (auto) 1.14 K/uL (0.11-0.59); Monocytes % (auto) 8.9 %; Neutrophils # (auto) 11.15 K/uL (1.4-6.5); Neutrophils % (auto) 87.1 %; Platelet Count 151 K/uL (130-400); RDW Coefficient of Variation 14.3 % (11.5-14.5); RDW Standard Deviation 48.5 fL (36.4-46.3); Red Blood Count 3.98 M/uL (4.7-6.1)
--- NOTE | 2021-07-02 14:29 | Hospitalist Consultation ---
Date of Consultation July 02, 2021 Assessment & Plan (1) Incarcerated right inguinal hernia: As per primary team (2) Hypertension: continue home meds (3) Obstructive sleep apnea, adult: as per primary team (4) Dyslipidemia: continue home medications (5) Acute delirium: Likely due to anesthesia. This appears to have resolved. No further management. History of Present Illness Reason for Consultation: Medical Management Attending Physician: Sheela Lou MD History of Present Illness 76 yo male who is in the hospital due to right groin pain, enlarged hernia and vomiting caused by an incarcerated hernia After surgery, Selvin was confused and required a one to one. By yesterday evening, patient had improved. This AM, patient is awake alert, ortient to person, place and to year. He feels like he is doing well and is interested in being discharged. Allergies Allergy/AdvReac Type Severity Reaction Status Date / Time codeine AdvReac NOSEBLEED Verified 12/22/20 08:35 Home Medications Medication Instructions Recorded Confirmed Type allopurinol 100 mg tablet 200 mg PO DAILY #180 tab 09/08/20 12/22/20 Rx hydrochlorothiazide 25 mg tablet 25 mg PO DAILY #90 tab 09/08/20 12/22/20 Rx lisinopril 30 mg tablet 30 mg PO DAILY #90 tab 09/08/20 12/22/20 Rx metoprolol tartrate 25 mg tablet 25 mg PO BID #180 tab 09/08/20 12/22/20 Rx simvastatin 40 mg tablet 40 mg PO DAILY #90 tab 09/08/20 12/22/20 Rx cholecalciferol (vitamin D3) 50 50 mcg PO DAILY 12/22/20 12/22/20 History mcg (2,000 unit) capsule tamsulosin 0.4 mg capsule 0.4 mg PO DAILY #90 cap 06/15/21 Rx tamsulosin 0.4 mg capsule 0.4 mg PO HS #14 cap 06/15/21 Rx Patient History Medical History (Updated 07/02/21 @ 14:36 by Keyshawn Bailey) Arthritis, multiple joint involvement Hypertension Obstructive sleep apnea, adult Surgical History H/O oral surgery S/P hernia repair 1982-Inguinal hernia S/P knee surgery Left knee-1983 Family History Mother Brain tumor Hypertension Father Lymphoma Denies family history of Ovarian cancer Prostate cancer Myocardial infarction Breast cancer Colorectal cancer Social History Smoking Status: Former smoker Age Started Using Tobacco: 18; Age Quit Using Tobacco: 39; Cigarettes Per Day: 6-10; Second Hand Exposure: No; Hx Alcohol Use: Yes Alcohol type: beer Alcohol Intake Frequency: Monthly or Less Hx Substance Use: No Preferred Language: Nepali Communication Ability: Effective Visual Impairment: Limited Hearing Ability: Use of Hearing Aid Sleep Manager Required: No Beliefs That Will Affect Care: None marital status: Current Living Situation: Spouse and Family current occupational status: retired Feels Safe at Home: Yes Childhood Exposure to Second-Hand Smoke: Yes caffeine: Yes (Coffee x 3-4 per day.) during the past year weight has: remained stable Dental Care, Regularly: No Physical Activity Frequency: 1-2 Times per Week Seatbelt Use: always Sunscreen Use: No Assistive Devices: Glasses Review of Systems Constitutional: no fever and no sweats Eyes: no blind spots and no diplopia Ear, Nose, Mouth, Throat: no ear pain and no ear trauma Respiratory: no cough and no change in sputum Cardiovascular: no chest pain and no chest pain with activity Gastrointestinal: no abdominal pain and no bloating Genitourinary: no dysuria or no urinary frequency Musculoskeletal: no back pain and no radicular pain Integumentary: no acne and no rash Neurologic: no gait abnormality and no falls Psychiatric: no behavioral changes and no hopelessness Endocrine: no fatigue and no polydipsia Hematologic / Lymphatic: no easy bleeding and no coagulopathy Allergy / Immunological: no lip swelling Physical Exam Constitutional: WD/WN, vitals as above Eyes: PERRL, conjunctivae normal, anicteric sclerae ENMT: external ear and nose normal, oropharynx normal Neck: trachea midline, no thyromegaly Respiratory: normal respiratory effort, lungs clear to auscultation Cardiovascular: RRR, no murmur, no edema Gastrointestinal (Abdomen): normal bowel sounds, soft, nontender, no hep atosplenomegaly (dry dressing over surgical incision on right groin) Musculoskeletal: no cyanosis or clubbing, extremities motor strength 5/5 Skin: no rashes, warm and dry Neurologic: PERRL, EOMI, accommodation nl, no face palsy, no dysarthria Psychiatric: A+Ox3, euthymic affect Lymphatic: no cervical or axillary lymphadenopathy Results & Data Results & Data ([facility]) Vital Signs (Past 12 Hours) Vital Signs Temp Pulse Resp BP Pulse Ox 07/02/21 11:18 155/71 H 07/02/21 11:09 37.1 C 67 16 160/74 H 94 07/02/21 07:02 37.5 C 67 16 110/59 L 94 07/02/21 03:11 37.5 C 101 H 16 135/68 95 PG Care Time/CCT Total # of Minutes Spent Total Time Spent with Patient: Total time spent is greater than 50% in coordination of care (as documented) at patient's floor/unit and/or counseling patient: Coding Level of Care Code 89636 Inpt Consult Level 3 Diagnoses Incarcerated right inguinal hernia K40.30 Hypertension I10 Obstructive sleep apnea, adult G47.33 Dyslipidemia E78.5 Acute delirium R41.0
--- NOTE | 2021-07-02 15:18 | Surgery Progress Note ---
Date of Service July 02, 2021 Assessment & Plan (1) Incarcerated right inguinal hernia: Plan: 76 year-old male presented to ED via ambulance due to right groin pain and large incarcerated scrotal hernia. Large irreducible right inguinal hernia extending to scrotum causing scrotal edema and very tender to palpation. Abdomen is soft. Patient in distress due to pain but able to communication. Vitals stable. Plan: Discussed with patient need for operative repair given the incarcerated hernia and risk of strangulation and bowel ischemia. Informed consent obtained. COVID preop keep npo EKG preop performed Will get [address] Lou was present during part of my examination. Examined patient and obtained consent. I ( Sheela Lou MD) reviewed pt's H/P, I recommend to do open repair incarcerated right inguinal hernia possible with mesh, D/w benefits, risks and alternatives of the surgery, pt understood, he agrees with surgery, he signed informed consent, I answered all questions, pre-op antibiotic, 07/02/2021 3:16PM S/P open repair incarcerated right inguinal hernia with mesh, POD 1 pt is doing fine, pt wants to go home today, the post-op care instruction was given, F/U me 2 weeks, Admission and Anticipated Discharge Date Admission Date: July 01, 2021 Subjective F/U S/P open repair incarcerated right inguinal hernia with mesh, POD 1 pt is doing fine, no significant incision pain, tolerated diet, Review of Systems Review of Systems: as per HPI, limited given patients distress Physical Exam Constitutional: WD/WN, vitals as above Neck: trachea midline, no thyromegaly Respiratory: normal respiratory effort, lungs clear to auscultation Cardiovascular: RRR, no murmur, no edema Gastrointestinal (Abdomen): soft, mild tenderness at incision site, incision intact, no redness, BS + Neurologic: patellar DTR's 2+ bilat, sensation intact Psychiatric: A+Ox3, euthymic affect Results & Data ([facility]) Vital Signs (Past 12 Hours) Vital Signs Temp Pulse Resp BP Pulse Ox 07/02/21 11:18 155/71 H 07/02/21 11:09 37.1 C 67 16 160/74 H 94 07/02/21 07:02 37.5 C 67 16 110/59 L 94 Laboratory Results Abnormal lab results 07/01/21 07/02/21 Range/Units 22:20 06:36 WBC 12.80 H (4.8-10.8) K/uL RBC 3.98 L (4.7-6.1) M/uL Hgb 12.5 L D (14.0-18.0) g/dL Hct 37.1 L (42-52) % RDW Std Deviation 48.5 H (36.4-46.3) fL MPV 10.8 H (7.4-10.4) fL Neut # (Auto) 11.15 H (1.4-6.5) K/uL Lymph # (Auto) 0.48 L (1.2-3.4) K/uL [place] # (Auto) 1.14 H (0.11-0.59) K/uL Immature Gran # (Auto) 0.03 H (0.00-0.02) K/uL Urine Appearance Turbid A (Clear) Urine Protein 2+ H (Negative) Urine Blood 3+ H (Negative) Urine Bilirubin 1+ H (Negative) Ur Leukocyte Esterase 1+ H (Negative) Urine WBC (Auto) 10-30 H (0-5) /hpf Urine RBC (Auto) >30 H (0-4) /hpf U Hyaline Cast (Auto) 5-10 H (0-5) /lpf
--- NOTE | 2021-07-03 11:19 | Discharge Summary (DS) ---
DATE OF ADMISSION: 07/01/2021 DATE OF DISCHARGE: 07/02/2021 ADMISSION DIAGNOSIS: Incarcerated right inguinal hernia. DISCHARGE DIAGNOSIS: Incarcerated right inguinal hernia. OPERATION: Open repair of incarcerated right inguinal hernia with mesh. SURGEON: Sheela Lou MD. DETAILS OF DISCHARGE SUMMARY: This is a 76-year-old gentleman who presented to ED with severe right groin pain with bulging and a clinical diagnosis of incarcerated right inguinal hernia. So, I recomm ended to take the patient to the OR. We did open repair of right inguinal hernia with mesh, and the p atient tolerated the procedure well. After the procedure, the patient was transferred to the recover y room and later on transferred to the floor. The patient is doing fine. We checked the patient, the patient had no significant incisional pain. The patient walked around. PHYSICAL EXAMINATION: VITAL SIGNS: Temperature is 37.1, respiratory rate 18, heart rate 86, blood pressure is 136/78, O2 s aturation 93% on room air. GENERAL: The patient is alert, awake, oriented x3. HEENT: Within normal limitation. NEUROLOGIC: Intact. NECK: No JVD. CHEST: Bilateral lung sounds clear. HEART: Normal S1 and S2. No murmur. ABDOMEN: Soft, mild tenderness on the incision site. No rebound pain. Bowel sounds positive. The incision is intact, no redness, no drainage. EXTREMITIES: No edema. The patient wanted to go home and we decided to discharge the patient home. We gave the patient post op care instruction, patient understands. I will follow up the patient in 2 weeks. Job ID: [id number]
--- NOTE | 2021-07-16 10:46 | Operative Report (OR) ---
PREOPERATIVE DIAGNOSIS: Incarcerated right inguinal hernia. POSTOPERATIVE DIAGNOSIS: Incarcerated right inguinal hernia. PROCEDURE: Open repair of incarcerated right inguinal hernia with mesh. SURGEON: Sheela Lou MD ANESTHESIA: General. ESTIMATED BLOOD LOSS: About 10 mL. FINDINGS: Incarcerated right inguinal hernia. COMPLICATIONS: None. INDICATIONS FOR PROCEDURE: This is a 76-year-old gentleman who presented to the ED with right inguinal pain with bulging and the patient was diagnosed with incarcerated right inguinal hernia. I recommended to do the open repair of incarcerated right inguinal hernia with mesh. I did talk to the patient about the benefits, risks, and alternate procedures. I indicated the risks may include, but not limited such as bleeding, infection, hernia recurrence, chronic pain, complication related to mesh, may need bowel resection, myocardial infarction, DVT, stroke, even . The patient understood. He signed informed consent and I answered all questions. DETAILS OF PROCEDURE: After we identified the patient and verified the procedure, we brought in the patient to the OR, put the patient in the supine position on the OR table. The patient received SCDs on bilateral legs to prevent DVT. Also, the patient received 2 grams Ancef IV for prophylactic antibiotic. The patient received general anesthesia without difficulty. The abdomen and pelvic area was prepped and draped in routine sterile fashion and also after general anesthesia, the patient received Jerry catheter insertion. Then, we made about a 4 cm incision on the right inguinal area and dissected the subcutaneous layer, mobilized the hernia sac, the incarcerated right inguinal hernia was diagnosed. At this moment, we enlarged hernia neck and we completely reduced the hernia sac contents back to abdominal cavity. Also, we checked the hernia sac which contain was small bowel, which had no ischemia signs, and returned the small bowel back to the abdominal cavity. Once we returned to the abdominal cavity, we resected some hernia sac and also we closed the hernia sac near the hernia neck. At this moment, we also mobilized the cord structures, put a [place] around the cord structure, we used 2-0 Prolene and closed the hernia sac near the hernia neck and then we chose a large plug and plugged the hernia sac and used 2-0 Prolene to close the hernia neck. Then we chose a 3 x 5 cm mesh to reinforce the posterior wall. We used a 2-0 Prolene suture mesh to conjoined tendon continuous running, another 2-0 Prolene suture mesh to right inguinal ligament continuous running, two sutures met together, tied, the mesh seated nicely, no tension. Hemostasis obtained. Then I closed the external oblique by using 2-0 Vicryl continuous running, closed subcutaneous layer by using 2-0 Vicryl continuous running, closed skin by using 4-0 Vicryl continuous running, and then we put the dressing on. The patient tolerated the procedure well. All instrument, needle, and sponge counts were correct x2 at the end of the case. The patient was transferred to recovery room in stable condition. After the procedure, I did talk to the patient about the OR finding and the procedure we did. Also, the patient's hernia sac specimen sent to pathology. Job ID: [id number] [facility]
== END 2021-07-02 17:22 | disposition home or self-care (01) ==
LOC: ED 11:42 → ASU 13:06 → 3W 13:06 → INTOOBSV 15:07 → 3W 15:07

== ENCOUNTER 2024-12-28 19:44 | Inpatient (IN) ==
[2024-12-28 20:40] LABS: Albumin Globulin Ratio 1.2 (0.9-2); Albumin Level 3.7 gm/dl (3.4-5.0); Bilirubin,Total 0.4 mg/dl (0.2-1.0); Calcium 10.2 mg/dl (8.6-10.3); Creatinine Clr Calc Pharmacy 49.5 ml/min; Globulin 3.1 gm/dl (2.5-4.0); Potassium 3.7 mmol/L (3.5-5.1); Total Protein 6.8 gm/dl (6.0-8.3)
[2024-12-28 20:46] LABS: Troponin I High Sensitivity 7.3 pg/ml (0-20)
[2024-12-28 20:53] LABS: Basophils # (auto) 0.04 K/uL (0.00-0.20); Basophils % (auto) 0.5 %; Eosinophils # (auto) 0.19 K/uL (0.00-0.50); Eosinophils % (auto) 2.5 %; Hematocrit (blood only) 38.6 % (42.0-52.0); Immature Granulocytes # (auto) 0.02 K/uL (0.01-0.20); Immature Granulocytes % (auto) 0.3 %; Lymphocytes # (auto) 1.27 K/uL (1.20-3.40); Lymphocytes % (auto) 16.9 %; Mean Corpuscular Hemoglobin 31.6 pg (25.0-34.0); Mean Corpuscular Hgb Conc 33.7 g/dL (32.0-36.0); Mean Corpuscular Volume 93.9 fL (80.0-100.0); Mean Platelet Volume 11.4 fL (9.4-12.4); Monocytes # (auto) 0.76 K/uL (0.11-0.59); Monocytes % (auto) 10.1 %; Neutrophils # (auto) 5.25 K/uL (1.40-6.50); Neutrophils % (auto) 69.7 %; Platelet Count 141 K/uL (130-400); RDW Coefficient of Variation 13.6 % (11.5-14.5); RDW Standard Deviation 46.3 fL (36.4-46.3); Red Blood Count 4.11 M/uL (4.70-6.10); White Blood Count 7.53 K/ul (4.8-10.8)
[2024-12-28 20:55] LABS: Thyroid Stimulating Hormone 1.115 uIu/ml (0.300-4.500)
[2024-12-28 20:59] LABS: Prothrombin Time 11.1 Seconds (9.0-12.0)
[2024-12-28 21:01] LABS: Adenovirus PCR Not Detected (NotDetected); Bordetella parapertussis PCR Not Detected (NotDetected); Bordetella pertussis PCR Not Detected (NotDetected); Chlamydia pneumoniae PCR Not Detected (NotDetected); Coronavirus 229E PCR Not Detected (NotDetected); Coronavirus CoV-2 (COVID19)PCR DETECTED (NotDetected); Coronavirus HKU1 PCR Not Detected (NotDetected); Coronavirus NL63 PCR Not Detected (NotDetected); Coronavirus OC43PCR Not Detected (NotDetected); Human Metapneumovirus PCR Not Detected (NotDetected); Influenza A PCR Not Detected (NotDetected); Influenza B PCR Not Detected (NotDetected); Mycoplasma pneumoniae PCR Not Detected (NotDetected); Parainfluenza Virus 1 PCR Not Detected (NotDetected); Parainfluenza Virus 2 PCR Not Detected (NotDetected); Parainfluenza Virus 3 PCR Not Detected (NotDetected); Parainfluenza Virus 4 PCR Not Detected (NotDetected); Respiratory Syncytial VirusPCR Not Detected (NotDetected); Rhinovirus/Enterovirus PCR Not Detected (NotDetected)
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
[2024-12-28] MEDS: OLANZapine 10 MG/2.1 ML SDV IM STA (22:50)
--- NOTE | 2024-12-28 22:55 | XRay Report ---
Exam(s): XR CXR 1 VIEW EXAM: XR Chest, 1 View CLINICAL HISTORY: Weakness. TECHNIQUE: Frontal view of the chest. COMPARISON: Chest radiograph 07/01/2021 FINDINGS: Lungs: Low lung volumes accentuate pulmonary markings. Bilateral airspace opacities are present. Pleural space: Small bilateral pleural effusions. No pneumothorax. Heart: Unremarkable. No cardiomegaly. Mediastinum: Unremarkable. Normal mediastinal contour. Bones/joints: There are degenerative changes of the spine. No acute fracture. IMPRESSION: 1. Low lung volumes accentuate pulmonary markings. Bilateral airspace opacities may represent atelectasis, pulmonary edema and/or atypical infection. 2. Small bilateral pleural effusions. Electronically signed by: Justina Manning MD 12/28/24 22:54 PM
[2024-12-28] MEDS: OLANZapine 10 MG/2.1 ML SDV IM ONE (23:07)
[2024-12-28] MEDS ORDERED: POLYETHYLENE (MIRALAX) 17 GM PACK PO PRN (23:24)
[2024-12-28] MEDS ORDERED: ONDANSETRON INJ 2 MG/ML 2 ML VIAL IV PRN (23:24)
[2024-12-28 23:34] LABS: Appearance Urine Clear (Clear); Bacteria Urine Automated None Seen (None Seen); Bilirubin Urine Negative (Negative); Blood Urine Negative (Negative); Cast Urine Automated 0-2 /lpf (0-2); Color Urine Yellow; Epithelial Cell Urine Auto 0-2 /hpf (0-2); Glucose Urine UA Negative (Negative); Ketones Urine Trace (Negative); Leukocyte Esterase Urine Trace (Negative); Nitrite Urine Negative (Negative); Protein Urine Negative (Negative); RBC Urine Automated 0-2 /hpf (0-2); Specific Gravity Urine 1.021 (1.000-1.030); Urobilinogen Urine Negative (Negative); WBC Urine Automated 0-5 /hpf (0-5); pH Urine 5.5 (4.5-7.5)
[2024-12-29] MEDS: METOPROLOL TARTRATE 25 MG TAB PO SCH (08:05)
[2024-12-29] MEDS: SIMVASTATIN 40 MG TAB PO SCH (08:05)
[2024-12-29] MEDS: allopurinoL 100 MG TAB PO SCH (08:05)
[2024-12-29] MEDS: lisinopril 10 MG TAB PO SCH (08:05)
--- NOTE | 2024-12-29 13:14 | Psychiatric Consultation ---
Date of Consultation December 29, 2024 Impression / Recommendations Impression 79 y/o M h/o dementia, B12 def, CKD stage III, HTN, LORRIE, dyslipidemia, chronic anemia presents with AMS with combative behavior primary towards and suicidal remarks in the context of recent covid infection. Psychiatry consulted for evaluation and medication recommendations. Baseline function, medication changes and recent behavioral disturbances reviewed with family. Concern for sundowning and sleep disturbances. May benefit from initiation of antidepressant for improved emotional regulation given recent anger outbursts and suicidal remarks. Schedule low dose quetiapine for behaviors and sleep. Overall, I spent a total of 80 minutes with this case including review of chart records, nursing report, review of lab work, direct evaluation of the patient at bedside, counseling the patient, gathering collateral discussion of the patient with the hospitalist provider, discussion with the psychiatric liaison during clinical rounds, and documentation in the electronic health record. (1) Combative behavior: (2) Delirium due to multiple etiologies: (3) Sundowning: (4) COVID-19: Plan Sertraline 25mg QD Quetiapine 12.5mg QAM Quetiapine 12.5mg Q1pm Quetiapine 25mg HS For behavioral emergencies: Olanzapine 2.5mg PO/IM BID PRN -Continue medical workup to rule out and treat any underlying causes contributing to potential delirium including correction of electrolyte abnormalities and infectious causes, avoid or limit use of deliriogenic medications (benzodiazepines, opioids, anticholinergics) -Continue with delirium prevention measures: raising blinds during the day, closing at night, frequent re-orientation, contact with family/friends, explaining procedures/nursing care measures prior to physical contact, correct any hearing and visual impairments Psych History Identifying Data 79 y/o M h/o dementia, B12 def, CKD stage III, HTN, LORRIE, dyslipidemia, chronic anemia presents with AMS with combative behavior primary towards and suicidal remarks in the context of recent covid infection. Psychiatry consulted for evaluation and medication recommendations. Chief Complaint Behavioral disturbances History of Present Illness Collateral from : 3 yrs ago dementia dx by PCP. At baseline pt is forgetful, does not drive or cook, can complete ADLs independently. 2 weeks ago became increasingly agitated. Recent scheduled risperidone made it worse. Looking into memory care unit for disposition. Behaviors worse at night. Chart review: Awakening at 3am for 1-2 hours. On interview the pt is AO to self only, knows its the hospital (thinks "[facility]"), not to date ("2022","April"), not to situation. Reports being here by coming here in his truck after camping with some friends. Then says he had breakfast in [place] this morning. Denies feeling sad. Did not sleep last night. Chronic OA pain in knees bilaterally; denies other pain. Allergies Allergy/AdvReac Type Severity Reaction Status Date / Time codeine AdvReac NOSEBLEED Verified 12/21/24 10:51 Home Medications Medication Instructions Recorded Confirmed Type cholecalciferol (vitamin D3) 50 50 mcg PO DAILY 12/22/20 12/28/24 History mcg (2,000 unit) capsule mecobalamin (vitamin B12) 1,000 1,000 mcg PO DAILY 02/01/23 12/28/24 History mcg chewable tablet multivitamin 1 tab PO DAILY 07/04/24 12/28/24 History lisinopril 30 mg tablet 30 mg PO DAILY #90 tabs 09/14/24 12/28/24 Rx simvastatin 40 mg tablet 40 mg PO DAILY #90 tabs 09/14/24 12/28/24 Rx allopurinol 100 mg tablet 200 mg (2 x 100 mg) PO DAILY #180 10/26/24 12/28/24 Rx tabs metoprolol tartrate 25 mg tablet 25 mg PO BID #180 tabs 10/26/24 12/28/24 Rx tamsulosin 0.4 mg capsule 0.4 mg PO HS #90 caps 10/26/24 12/28/24 Rx Lactobacillus acidophilus 10 10,000 mmu cells PO DAILY 12/20/24 12/28/24 History billion cell capsule (Probiotic) memantine 7 mg capsule 7 mg PO DAILY #30 ea 12/21/24 12/28/24 Rx sprinkle,extended release 24hr risperidone 0.25 mg tablet 0.25 mg PO BID #60 tabs 12/21/24 12/28/24 Rx Patient History Medical History Incarcerated right inguinal hernia Surgical History H/O oral surgery S/P knee surgery Left knee-1983 S/P hernia repair 1982-Inguinal hernia Family History Mother Brain tumor Hypertension Father Lymphoma Denies family history of Ovarian cancer Prostate cancer Myocardial infarction Breast cancer Colorectal cancer Social History Smoking Status: Never smoker Age Started Using Tobacco: 18; Age Quit Using Tobacco: 39; Cigarettes Per Day: 6-10; Second Hand Exposure: No; Do You Dip or Chew Tobacco: No; Hx Alcohol Use: Yes Alcohol type: beer Alcohol Intake Frequency: Monthly or Less Hx Substance Use: No Preferred Language: Armenian Communication Ability: Effective Visual Impairment: No Limitations Hearing Ability: Use of Hearing Aid Environmental Health Technologist Required: No Beliefs That Will Affect Care: None marital status: Current Living Situation: Spouse current occupational status: retired Other Information That Helps Us Care for You: No Feels Safe at Home: No Is there a partner from a previous relationship who is making you feel unsafe now?: No Any Concerns about Your Family Situation: Yes Would You Like to Speak to Someone About Your Situation: Yes Safety Concerns: Afraid for Self and Afraid for Others in Home Childhood Exposure to Second-Hand Smoke: Yes Diet: regular Diet Comment: regular caffeine: Yes (Coffee x 3-4 per day.) during the past year weight has: decreased > 10 lbs Dental Care, Regularly: No Physical Activity Frequency: 1-2 Times per Week Seatbelt Use: always Sunscreen Use: No Assistive Devices: Glasses Physical Exam Mental Examination: Appearance: Unkempt Eye Contact: Maintains Eye Contact Motor Behavior: Restless Speech: Delayed Mood: Euthymic and Calm Affect: Congruent and Irritable Thought Process: Disoriented and Slowed Thinking Thought Content: Disoriented Hallucinations: None Insight: Poor Judgement: Poor Vital Signs (Past 24 Hours): Last Vital Signs Temp 36.6 C 12/29/24 07:53 Pulse 66 12/29/24 07:53 Resp 18 12/29/24 07:53 BP 167/80 H 12/29/24 07:53 Pulse Ox 97 12/29/24 07:53 O2 Del Method Room Air 12/29/24 07:53 Results & Data (PSY) Medications Administered Allopurinol (Allopurinol 100 Mg Tab) 200 mg PO DAILY JOEY Stop: 01/28/25 08:59 Last Admin: 12/29/24 08:05 Dose: 200 mg Documented By: KEVIN Lisinopril (Lisinopril 10 Mg Tab) 30 mg PO DAILY JOEY Stop: 01/28/25 08:59 Last Admin: 12/29/24 08:05 Dose: 30 mg Documented By: KEVIN Metoprolol Tartrate (Metoprolol Tartrate 25 Mg Tab) 25 mg PO BID JOEY Stop: 01/28/25 08:59 Last Admin: 12/29/24 08:05 Dose: 25 mg Documented By: KEVIN Simvastatin (Simvastatin 40 Mg Tab) 40 mg PO DAILY [facility] Stop: 01/28/25 08:59 Last Admin: 12/29/24 08:05 Dose: 40 mg Documented By: KEVIN [place] [address] IN/OBS CONSULT LVL 5,80M Patient Type New Medical Decision Making Moderate Complexity Diagnoses Combative behavior R46.89 Delirium due to multiple etiologies F05 Sundowning F05 COVID-19 U07.1
[2024-12-29] MEDS: QUEtiapine FUMARATE 25 MG TABLET PO STA (14:38)
--- NOTE | 2024-12-29 16:51 | Hospitalist Progress Note ---
Date of Service December 29, 2024 Assessment & Plan (1) Altered mental status: (2) Combative behavior: (3) COVID-19: Plan 79-year-old male PMHx mild cognitive impairment/dementia, B12 deficiency, CKD stage III, HTN, LORRIE, dyslipidemia, and chronic anemia presenting for acute change in mental status resulting in harming his family members. E #AMS/Combative With h/o MCI, steady decline over past 1 month. Patient becomes agitated and harms family members, mainly his which results in a safety concern for her. Pt was started on memantine and risperidone approximately 1 week ago, which the family reports may have worsened his symptoms slightly but that the agitation had been starting even prior to this medication addition. No recent trauma or infection. No neurological deficits had been noted. Suspect symptoms 2/2 progressive decline mental state, ? impact from mediations being added but unlikely the main cause. ? impact of symptoms 2/2 (+) COVID-19. Had neurology referral provided at PCP visit but has not yet had chance to follow with neurology. - CBC without evidence of leukocytosis and CMP grossly WNL; TSH 1.115; UA negative for infection; BioFire positive for COVID - CT head completed 12/20/2024 without acute findings- given agitation at time of admission, no repeat CT head was ordered but should consider as patient becomes calmer. - Discontinue memantine and risperidone - Psych consulted- recs include sertraline 25mg daily, Quetiapine 12.5mg AM/1PM and Quetiapine 25mg HS. Behavioral emergencies use Olanzapine 2.5mg PO/IM BID PRN - CM consulted to aide w/ placement upon discharge. #COVID-19 COVID 19 diagnosed on admission, no symptoms and unclear exposure. - CBC unremarkable; CXR with atelectasis vs pulm edema and presence of small bilateral pleural effusions - Incentive spirometry if patient will tolerate; O2 prn (none at baseline) - Unclear duration of illness and asymptomatic- deferred remdesivir and dexamethasone - CBC/BMP stable Chronic conditions: BPH: Tamsulosin HLD: Simvastatin HTN: Lisinopril, Metoprolol Dispo: Admit, med/sx VTE Prophylaxis: SCDs, Lovenox Discussed w/ psychiatrist 12/29 Updated family (son/) 12/29 Admission and Anticipated Discharge Date Admission Date: December 28, 2024 Subjective Patient seen and examined. patient alert but not oriented to person, place, or time. Patient reports he is 89 years old, the year is 2022, and he is not in a hospital but a holding area. Discussed w/ family this afternoon the treatment plan moving forward. Physical Exam Constitutional: WD/WN, vitals as above Eyes: PERRL, conjunctivae normal, anicteric sclerae Respiratory: breathing unlabored Cardiovascular: well perfused Psychiatric: alert Results & Data Results & Data Vital Signs (Past 12 Hours) Vital Signs Temp Pulse Resp BP Pulse Ox O2 Del Method 12/29/24 14:35 36.9 C 63 16 165/69 H 96 Room Air 12/29/24 07:53 36.6 C 66 18 167/80 H 97 Room Air 12/29/24 07:30 Room Air PG Care Time/CCT Total # of Minutes Spent Total Time Spent with Patient: Total time spent is greater than 50% in coordination of care (as documented) at patient's floor/unit and/or counseling patient: Coding Level of Care Code 13387 SUB INP/OBS CARE 3/50MIN Diagnoses Altered mental status R41.82 Combative behavior R46.89 COVID-19 U07.1
[2024-12-29] MEDS: OLANZapine 10 MG/2.1 ML SDV IM STA (19:45)
[2024-12-29] MEDS: OLANZAPINE 2.5 MG TAB PO PRN (20:29)
[2024-12-29] MEDS: QUEtiapine FUMARATE 25 MG TABLET PO SCH (20:29)
[2024-12-29] MEDS: TAMSULOSIN HCL 0.4 MG CAP PO SCH (20:38)
[2024-12-29] MEDS: ENOXAPARIN INJ 40 MG/0.4 ML SYR SQ SCH (20:46)
--- NOTE | 2024-12-29 22:46 | Electrocardiogram Report ---
Test Reason : Blood Pressure : */* mmHG Vent. Rate : 57 BPM Atrial Rate : 57 BPM P-R Int : 210 ms QRS Dur : 140 ms QT Int : 410 ms P-R-T Axes : 39 -33 12 degrees QTcB Int : 399 ms Sinus bradycardia with 1st degree A-V block Left axis deviation Right bundle branch block Abnormal ECG When compared with ECG of 20-Dec-2024 13:46, No significant change was found Confirmed by Hansel Gomez ([id number]) on 12/29/2024 10:45:41 PM Referred By: REFERRED SELF Confirmed By: Hansel Gomez
[2024-12-29] MEDS: MELATONIN 3 MG TAB PO PRN (23:14)
[2024-12-29] MEDS: ACETAMINOPHEN 325 MG TAB PO PRN (23:14)
[2024-12-30] MEDS: QUEtiapine FUMARATE 25 MG TABLET PO SCH ×2 (08:06→13:16)
[2024-12-30] MEDS: SERTRALINE HCL 50 MG TABLET PO SCH (08:07)
[2024-12-30 08:38] LABS: Hematocrit (blood only) 43.5 % (42.0-52.0); Hemoglobin 14.6 g/dl (14.0-18.0); Mean Corpuscular Hemoglobin 31.9 pg (25.0-34.0); Mean Corpuscular Hgb Conc 33.6 g/dL (32.0-36.0); Mean Corpuscular Volume 95.2 fL (80.0-100.0); Mean Platelet Volume 11.1 fL (9.4-12.4); Platelet Count 136 K/uL (130-400); RDW Coefficient of Variation 13.9 % (11.5-14.5); RDW Standard Deviation 48.6 fL (36.4-46.3); Red Blood Count 4.57 M/uL (4.70-6.10); White Blood Count 7.38 K/ul (4.8-10.8)
[2024-12-30 09:28] LABS: BUN Creatinine Ratio 26.4 (10-20); Calcium 9.5 mg/dl (8.6-10.3); Creatinine Clr Calc Pharmacy 42.8 ml/min; Potassium 4.5 mmol/L (3.5-5.1)
--- NOTE | 2024-12-30 15:16 | Hospitalist Progress Note ---
Date of Service December 30, 2024 Assessment & Plan (1) Altered mental status: (2) Combative behavior: (3) COVID-19: Plan 79-year-old male PMHx mild cognitive impairment/dementia, B12 deficiency, CKD stage III, HTN, LORRIE, dyslipidemia, and chronic anemia presenting for acute change in mental status resulting in harming his family members. E #AMS/Combative With h/o MCI, steady decline over past 1 month. Patient becomes agitated and harms family members, mainly his which results in a safety concern for her. Pt was started on memantine and risperidone approximately 1 week ago, which the family reports may have worsened his symptoms slightly but that the agitation had been starting even prior to this medication addition. No recent trauma or infection. No neurological deficits had been noted. Suspect symptoms 2/2 progressive decline mental state, ? impact from mediations being added but unlikely the main cause. ? impact of symptoms 2/2 (+) COVID-19. Had neurology referral provided at PCP visit but has not yet had chance to follow with neurology. - CBC without evidence of leukocytosis and CMP grossly WNL - TSH 1.115 - UA negative for infection - BioFire positive for COVID, do not suspect this is the underlying etiology to his confusion/combativeness as patient has been asymptomatic and has had progressive mental decline over the past month. - CT head completed 12/20/2024 without acute findings - Discontinue memantine and risperidone - Psych consulted- recs include sertraline 25mg daily, Quetiapine 12.5mg AM/1PM and Quetiapine 25mg HS. Behavioral emergencies use Olanzapine 2.5mg PO/IM BID PRN - spoke w/ psych 12/30 -> hopeful patient's Quetiapine will take effect soon. If he continues to stay agitated, consider giving Quetiapine earlier in the evening. Monitor for today/overnight. - CM consulted to aide w/ placement upon discharge. #COVID-19 COVID 19 diagnosed on admission, no symptoms and unclear exposure. - CBC unremarkable; CXR with atelectasis vs pulm edema and presence of small bilateral pleural effusions - Incentive spirometry if patient will tolerate; O2 prn (none at baseline) - Unclear duration of illness and asymptomatic- deferred remdesivir and dexamethasone - CBC/BMP stable Chronic conditions: BPH: Tamsulosin HLD: Simvastatin HTN: Lisinopril, Metoprolol Dispo: Admit, med/sx VTE Prophylaxis: SCDs, Lovenox Discussed w/ psychiatrist 12/30 Admission and Anticipated Discharge Date Admission Date: December 28, 2024 Subjective Patient seen and examined this morning. Patient resting in his chair. Appeared comfortable and calm. He denied any complaints just stated he was "organizing" his book. metal mold dresser at bedside. Physical Exam Constitutional: WD/WN, vitals as above Eyes: PERRL, conjunctivae normal, anicteric sclerae Respiratory: breathing unlabored Cardiovascular: well perfused Psychiatric: confused, pleasant Results & Data Results & Data Vital Signs (Past 12 Hours) Vital Signs Temp Pulse Resp BP Pulse Ox O2 Del Method 12/30/24 09:28 Room Air 12/30/24 08:11 36.5 C 101 H 17 153/82 H 96 Room Air PG Care Time/CCT Total # of Minutes Spent Total Time Spent with Patient: Total time spent is greater than 50% in coordination of care (as documented) at patient's floor/unit and/or counseling patient: Coding Level of Care Code 04039 SUB INP/OBS CARE 2/35MIN Diagnoses Altered mental status R41.82 Combative behavior R46.89 COVID-19 U07.1
--- NOTE | 2024-12-31 13:42 | Hospitalist Progress Note ---
Date of Service December 31, 2024 Assessment & Plan (1) Altered mental status: (2) Combative behavior: (3) COVID-19: Plan 79-year-old male PMHx mild cognitive impairment/dementia, B12 deficiency, CKD stage III, HTN, LORRIE, dyslipidemia, and chronic anemia presenting for acute change in mental status resulting in harming his family members. #AMS/Combative With h/o MCI, steady decline over past 1 month. Patient becomes agitated and harms family members, mainly his which results in a safety concern for her. Pt was started on memantine and risperidone approximately 1 week ago, which the family reports may have worsened his symptoms slightly but that the agitation had been starting even prior to this medication addition. No recent trauma or infection. No neurological deficits had been noted. Suspect symptoms 2/2 progressive decline mental state, ? impact from mediations being added but unlikely the main cause. ? impact of symptoms 2/2 (+) COVID-19. Had neurology referral provided at PCP visit but has not yet had chance to follow with neurology. - CBC without evidence of leukocytosis and CMP grossly WNL - TSH 1.115 - UA negative for infection - BioFire positive for COVID, do not suspect this is the underlying etiology to his confusion/combativeness as patient has been asymptomatic and has had progressive mental decline over the past month. - CT head completed 12/20/2024 without acute findings - Discontinue memantine and risperidone - Psych consulted- recs include sertraline 25mg daily, Quetiapine 12.5mg AM/1PM and Quetiapine 25mg HS. Behavioral emergencies use Olanzapine 2.5mg PO/IM BID PRN - spoke w/ psych 12/30 -> hopeful patient's Quetiapine will take effect soon. If he continues to stay agitated, consider giving Quetiapine earlier in the evening. Monitor for today/overnight. - CM consulted to aide w/ placement upon discharge. #COVID-19 COVID 19 diagnosed on admission, no symptoms and unclear exposure. - CBC unremarkable; CXR with atelectasis vs pulm edema and presence of small bilateral pleural effusions - Incentive spirometry if patient will tolerate; O2 prn (none at baseline) - Unclear duration of illness and asymptomatic- deferred remdesivir and dexamethasone - CBC/BMP stable Chronic conditions: BPH: Tamsulosin HLD: Simvastatin HTN: Lisinopril, Metoprolol Dispo: Admit, med/sx VTE Prophylaxis: SCDs, Lovenox Placement pending, CM following. Admission and Anticipated Discharge Date Admission Date: December 28, 2024 Subjective Patient seen and examined this morning. Patient sitting upright in chair talking to safety instruction police officer upon arrival to my encounter. He did note he was tired and had to use the restroom. he denied any further complaints. Physical Exam Constitutional: WD/WN, vitals as above Eyes: PERRL, conjunctivae normal, anicteric sclerae Respiratory: breathing unlabored Cardiovascular: well perfused Psychiatric: confused Results & Data Results & Data Vital Signs (Past 12 Hours) Vital Signs Temp Pulse Resp BP Pulse Ox O2 Del Method 12/31/24 07:53 36.6 C 89 17 132/75 94 Room Air 12/31/24 07:20 Room Air PG Care Time/CCT Total # of Minutes Spent Total Time Spent with Patient: Total time spent is greater than 50% in coordination of care (as documented) at patient's floor/unit and/or counseling patient: Coding Level of Care Code 87874 SUB INP/OBS CARE 11/17MIN Diagnoses Altered mental status R41.82 Combative behavior R46.89 COVID-19 U07.1
--- NOTE | 2025-01-01 08:03 | Hospitalist Progress Note ---
Date of Service January 01, 2025 Assessment & Plan (1) Altered mental status: (2) Combative behavior: (3) COVID-19: (4) Hypotension: Plan 79-year-old male PMHx mild cognitive impairment/dementia, B12 deficiency, CKD stage III, HTN, LORRIE, dyslipidemia, and chronic anemia presenting for acute change in mental status resulting in harming his family members. While patient currently has placement pending, he will require continued stay until he can be off a one-to-one, and until he is cleared from a COVID standpoint. COVID day 1 would be when he was diagnosed on 12/28, as unclear duration of illness; patient is currently asymptomatic. #AMS/Combative With h/o MCI, steady decline over past 1 month. Patient becomes agitated and harms family members, mainly his which results in a safety concern for her. Pt was started on memantine and risperidone approximately 1 week ago, which the family reports may have worsened his symptoms slightly but that the agitation had been starting even prior to this medication addition. No recent trauma or infection. No neurological deficits had been noted. Suspect symptoms 2/2 progressive decline mental state, ? impact from mediations being added but unlikely the main cause. ? impact of symptoms 2/2 (+) COVID-19. Had neurology referral provided at PCP visit but has not yet had chance to follow with neurology. - CBC without evidence of leukocytosis and CMP grossly WNL - TSH 1.115 - UA negative for infection - BioFire positive for COVID, do not suspect this is the underlying etiology to his confusion/combativeness as patient has been asymptomatic and has had progressive mental decline over the past month. - CT head completed 12/20/2024 without acute findings - Discontinue memantine and risperidone - Psych consulted- recs include sertraline 25mg daily, Quetiapine 12.5mg AM/1PM and Quetiapine 25mg HS. Behavioral emergencies use Olanzapine 2.5mg PO/IM BID PRN - spoke w/ psych 12/30 -> hopeful patient's Quetiapine will take effect soon. If he continues to stay agitated, consider giving Quetiapine earlier in the evening. Monitor for today/overnight. - CM consulted to aide w/ placement upon discharge. #COVID-19 COVID 19 diagnosed on admission, no symptoms and unclear exposure. CBC unremarkable; CXR with atelectasis vs pulm edema and presence of small bilateral pleural effusions IS a flutter valve as needed; supplemental O2 PRN (none at baseline) Unclear duration of illness and asymptomatic- deferred remdesivir and dexamethasone on admission COVID-19 isolation precautions #Hypotension On 01/01, patient's blood pressure did drop to a low of 91/58 Suspect secondary to dehydration and poor p.o. intake NSS 500 mL IV bolus x 1, and will place on IVF maintenance overnight Will plan to hold evening dose of metoprolol at 01/01 Update at 1900: patient's BP did improve with initial fluid bolus to 124/70 Will plan to restart metoprolol on the morning of 01/02 Hold lisinopril on the morning of 01/02 for now, and okay to restart if BP remains normotensive Chronic conditions: BPH: Tamsulosin HLD: Simvastatin HTN: Hold lisinopril, continue metoprolol Dispo: Admit, med/sx VTE Prophylaxis: SCDs, Lovenox Placement pending, CM following. Admission and Anticipated Discharge Date Admission Date: December 28, 2024 Helen Selvin reports no new concerns at this time. Patient is a poor historian at this time. DATAPOWER CONSULTANT at bedside reports that he has been good today, but has become argumentative at times and claims he is going home and that his "parents are picking him up". Additionally, DATAPOWER CONSULTANT reports that he has not been eating or drinking much; only had a couple bites of his breakfast. No reported falls. No episodes of combative or aggressive behavior. Patient is oriented to himself, but not alert and oriented to month or location. He does know he has COVID. ROS: Patient denies fever, chills, chest pain, cough, pleuritic CP, chest palpitations, abdominal pain, or N/V/D. Review of Systems Review of Systems: See HPI above Physical Exam Physical Exam: General: no acute distress; non-toxic appearing; well-nourished; cooperative; SpO2 96% on RA HEENT: normocephalic, atraumatic; no scleral icterus; PERRLA w/ EOMs intact; vision and hearing grossly intact Neck: supple; no lymphadenopathy; trachea midline Skin: warm, dry without signs of tenting; no cyanosis; no rashes, bruising, lesions, or erythema noted CV: chest wall NTP; RR, mildly tachycardic around 115 bpm; S1/S2 normal; no murmurs/rubs/gallops; pulses intact and symmetric at radial, DP, and PT Lungs: no acute respiratory distress; symmetrical chest wall expansion; clear breath sounds across all lung gamez w/o adventitious sounds; no wheezing ABD: Soft, NTP; BS present; no rebound/guarding; no distention MSK: no tics or fasciculations; no edema noted in the LEs b/l, nonerythematous Neuro: Alert and oriented to self, but not location or month; normal mood and affect; fluent speech; no focal deficits; sensation grossly intact in the LEs b/l Results & Data Results & Data Vital Signs (Past 12 Hours) Vital Signs Temp Pulse Resp BP Pulse Ox O2 Del Method 01/01/25 07:08 36.7 C 76 18 110/65 94 Room Air 12/31/24 20:15 Room Air PG Care Time/CCT Total # of Minutes Spent Total Time Spent with Patient: Total time spent is greater than 50% in coordination of care (as documented) at patient's floor/unit and/or counseling patient: C[place] [address] SUB INP/OBS CARE 2/35MIN Patient Type Established History Comprehensive Exam Comprehensive Medical Decision Making Moderate Complexity Diagnoses Altered mental status R41.82 Combative behavior R46.89 COVID-19 U07.1 Hypotension I95.9
[2025-01-01] MEDS: SODIUM CHLORIDE 0.9% 500 ML IV ONE (18:17)
[2025-01-01] MEDS: SODIUM CHLORIDE 0.9% 1,000 ML IV SCH (18:51)
--- NOTE | 2025-01-02 20:05 | Hospitalist Progress Note ---
Date of Service January 02, 2025 Assessment & Plan (1) Altered mental status: (2) Combative behavior: (3) COVID-19: (4) Hypotension: Plan 79-year-old male PMHx mild cognitive impairment/dementia, B12 deficiency, CKD stage III, HTN, LORRIE, dyslipidemia, and chronic anemia presenting for acute change in mental status resulting in harming his family members. While patient currently has placement pending, he will require continued stay until he can be off a one-to-one, and until he is cleared from a COVID standpoint. COVID day 1 would be when he was diagnosed on 12/28, as unclear duration of illness; patient is currently asymptomatic. #AMS/Combative With h/o MCI, steady decline over past 1 month. Patient becomes agitated and harms family members, mainly his which results in a safety concern for her. Pt was started on memantine and risperidone approximately 1 week ago, which the family reports may have worsened his symptoms slightly but that the agitation had been starting even prior to this medication addition. No recent trauma or infection. No neurological deficits had been noted. Suspect symptoms 2/2 progressive decline mental state, ? impact from mediations being added but unlikely the main cause. ? impact of symptoms 2/2 (+) COVID-19. Had neurology referral provided at PCP visit but has not yet had chance to follow with neurology. - Labs unremarkable including CBC, CMP, TSH, UA. CT head completed 12/20/2024 without acute findings - BioFire positive for COVID, do not suspect this is the underlying etiology to his confusion/combativeness as patient has been asymptomatic and has had progressive mental decline over the past month - Discontinued memantine and risperidone - Psych consulted- recs include sertraline 25mg daily, Quetiapine 12.5mg AM/1PM and Quetiapine 25mg HS. Behavioral emergencies use Olanzapine 2.5mg PO/IM BID PRN #COVID-19 COVID 19 diagnosed on admission. Unclear duration of illness and asymptomatic - deferred remdesivir and dexamethasone on admission CXR with atelectasis vs pulm edema and presence of small bilateral pleural effusions IS, flutter valve as needed; stable on room air COVID-19 isolation precautions #Hypotension On 01/01, patient's blood pressure did drop to a low of 91/58. Suspect secondary to dehydration and poor p.o. intake Received 500 cc bolus with IV fluid maintenance overnight with improvement in BP, now normotensive Continue metoprolol and lisinopril Chronic conditions: BPH: Tamsulosin HLD: Simvastatin HTN: Hold lisinopril, continue metoprolol Dispo: Continued inpatient stay while awaiting placement. Patient still requiring 1:1 observation and is on isolation precautions for COVID VTE Prophylaxis: SCDs, Lovenox Admission and Anticipated Discharge Date Admission Date: December 28, 2024 Subjective Patient seen and evaluated at bedside with 1:1 [employer] FACULTY ASSISTANT present. He remains confused, stating that his mother is coming to get him. He denies respiratory symptoms, N/V/D, headache, chest pain. He had a BM today. RN reports he ate about half of his breakfast and lunch, is intermittently argumentative and combative but somewhat redirectable. Ayad remained calm and cooperative during my visit. No additional complaints or concerns at this time. Physical Exam Physical Exam: General: No acute distress, nondiaphoretic, well-developed, well-nourished. Cardiac: Regular rate and rhythm without murmurs gallops or rubs. Pulm: Clear to auscultation bilaterally without wheezes, rales or rhonchi. Normal respiratory effort. 95% on room air. Abdominal: Soft, nontender, nondistended. Bowel sounds present. Neuro: A&O x1 (self). No focal neurological deficits. Results & Data Results & Data Vital Signs (Past 12 Hours) Vital Signs Temp Pulse Resp BP Pulse Ox O2 Del Method 01/02/25 19:30 Room Air 01/02/25 19:30 98.1 F 62 20 120/62 95 Room Air 01/02/25 14:55 97.7 F 63 18 133/70 97 Room Air PG Care Time/CCT Total # of Minutes Spent Total Time Spent with Patient: Total time spent is greater than 50% in coordination of care (as documented) at patient's floor/unit and/or counseling patient: Coding Level of Care Code 19930 SUB INP/OBS CARE 11/17MIN Diagnoses Altered mental status R41.82 Combative behavior R46.89 COVID-19 U07.1 Hypotension I95.9
[2025-01-02] MEDS: OLANZapine 10 MG/2.1 ML SDV IM STA (23:22)
[2025-01-02] MEDS: OLANZapine 10 MG/2.1 ML SDV IM ONE (23:23)
--- NOTE | 2025-01-03 14:46 | Hospitalist Progress Note ---
Date of Service January 03, 2025 Assessment & Plan (1) Altered mental status: (2) Combative behavior: (3) COVID-19: (4) Hypotension: Plan 79-year-old male PMHx mild cognitive impairment/dementia, B12 deficiency, CKD stage III, HTN, LORRIE, dyslipidemia, and chronic anemia presenting for acute change in mental status resulting in harming his family members. While patient currently has placement pending, he will require continued stay until he can be off a one-to-one, and until he is cleared from a COVID standpoint. COVID day 1 would be when he was diagnosed on 12/28, as unclear duration of illness; patient is currently asymptomatic. #AMS/Combative With h/o MCI, steady decline over past 1 month. Patient becomes agitated and harms family members, mainly his which results in a safety concern for her. Pt was started on memantine and risperidone approximately 1 week ago, which the family reports may have worsened his symptoms slightly but that the agitation had been starting even prior to this medication addition. No recent trauma or infection. No neurological deficits had been noted. Suspect symptoms 2/2 progressive decline mental state, ? impact from mediations being added but unlikely the main cause. ? impact of symptoms 2/2 (+) COVID-19. Had neurology referral provided at PCP visit but has not yet had chance to follow with neurology. - Labs unremarkable including CBC, CMP, TSH, UA. CT head completed 12/20/2024 without acute findings - BioFire positive for COVID, do not suspect this is the underlying etiology to his confusion/combativeness as patient has been asymptomatic and has had progressive mental decline over the past month - Discontinued memantine and risperidone - Psych consulted- recs include sertraline 25mg daily, Quetiapine 12.5mg AM/1PM and Quetiapine 25mg HS. Behavioral emergencies use Olanzapine 2.5mg PO/IM BID PRN - Remains on 1:1, more for elopement risk than for agitation #COVID-19 COVID 19 diagnosed on admission. Unclear duration of illness and asymptomatic - deferred remdesivir and dexamethasone on admission CXR with atelectasis vs pulm edema and presence of small bilateral pleural effusions IS, flutter valve as needed; stable on room air COVID-19 isolation precautions #Hypotension On 01/01, patient's blood pressure did drop to a low of 91/58. Suspect secondary to dehydration and poor p.o. intake Received 500 cc bolus with IV fluid maintenance overnight with improvement in BP, now normotensive Chronic conditions: BPH: Tamsulosin HLD: Simvastatin HTN: Continue metoprolol, lisinopril Dispo: Continued inpatient stay while awaiting placement. Patient still requiring 1:1 observation and is on isolation precautions for COVID VTE Prophylaxis: SCDs, Lovenox Admission and Anticipated Discharge Date Admission Date: December 28, 2024 Supervising Physician Co-Signing Physician Notes The patient was not seen by me. The chart was reviewed. Case discussed with LESLIE Ibarra. Agree with assessment and plan Subjective Patient seen and evaluated in bedside chair with 1:1 PETROLEUM REFINING EQUIPMENT OPERATOR present. He denies any acute complaints or concerns. PETROLEUM REFINING EQUIPMENT OPERATOR at bedside reports he ate most of his breakfast and lunch. He has been calm and cooperative this morning/afternoon. He took a long nap between breakfast and lunch. Overnight he was agitated with staff and attempted to leave his room, security was called to intervene and Selvin was placed in soft wrist restraints bilaterally and given IM Zyprexa. The restraints were discontinued this morning. Physical Exam Physical Exam: General: No acute distress, nondiaphoretic, well-developed, well-nourished. Cardiac: Well-perfused. Rate in 60s. Pulm: Normal respiratory effort. 95% on room air. Neuro: A&O x1 (self). No focal neurological deficits. Results & Data Results & Data Vital Signs (Past 12 Hours) Vital Signs Temp Pulse Pulse Resp BP BP Pulse Ox 01/03/25 14:08 98.1 F 66 16 107/53 L 95 01/03/25 08:53 01/03/25 08:05 97.9 F 72 16 146/68 H 94 O2 Del Method 01/03/25 14:08 Room Air 01/03/25 08:53 Room Air 01/03/25 08:05 Room Air PG Care Time/CCT Total # of Minutes Spent Total Time Spent with Patient: Total time spent is greater than 50% in coordination of care (as documented) at patient's floor/unit and/or counseling patient: Coding Level of Care Code 46830 SUB INP/OBS CARE 11/17MIN Diagnoses Altered mental status R41.82 Combative behavior R46.89 COVID-19 U07.1 Hypotension I95.9
--- NOTE | 2025-01-04 14:41 | Hospitalist Progress Note ---
Date of Service January 04, 2025 Assessment & Plan (1) Altered mental status: (2) Combative behavior: (3) COVID-19: (4) Hypotension: Plan 79-year-old male PMHx mild cognitive impairment/dementia, B12 deficiency, CKD stage III, HTN, LORRIE, dyslipidemia, and chronic anemia. He presented for subacute change in mental status with steady decline over past 1 month. Mr. Borrero becomes agitated and harms family members at home, mainly his , which results in a safety concern for her. He was started on memantine and risperidone approximately 1 week prior to admission - low suspicion this medication addition is the cause given his agitation has been worsening x 1 month. He did test positive for COVID-19 on admission and is asymptomatic in this regard. He had a neurology referral from his PCP, but has not yet had a chance to follow-up with neurology. He continues to have a 1:1 sitter at bedside due to being an elopement risk; he has not displayed aggression towards staff. #AMS/Combative - Labs unremarkable including CBC, CMP, TSH, UA. CT head completed 12/20/2024 without acute findings - BioFire positive for COVID, do not suspect this is the underlying etiology to his confusion/combativeness as patient has been asymptomatic and has had prog ressive mental decline over the past month - Psych consulted- recs include sertraline 25mg daily, Quetiapine 12.5mg AM/1PM and Quetiapine 25mg HS. Behavioral emergencies use Olanzapine 2.5mg PO/IM BID PRN. Discontinued memantine and risperidone - Remains on 1:1, more for elopement risk than for agitation #COVID-19 COVID 19 diagnosed on admission. Unclear duration of illness and asymptomatic - deferred remdesivir and dexamethasone on admission CXR with atelectasis vs pulm edema and presence of small bilateral pleural effusions IS, flutter valve as needed; stable on room air COVID-19 isolation precautions #Hypotension On 01/01, patient's blood pressure did drop to a low of 91/58. Suspect secondary to dehydration and poor p.o. intake Received 500 cc bolus with IV fluid maintenance overnight with improvement in BP, now normotensive Chronic conditions: BPH: Tamsulosin HLD: Simvastatin HTN: Continue metoprolol, lisinopril Dispo: Continued inpatient stay while awaiting placement. Patient still requiring 1:1 observation and is on isolation precautions for COVID VTE Prophylaxis: SCDs, Lovenox Admission and Anticipated Discharge Date Admission Date: December 28, 2024 Supervising Physician Co-Signing Physician Notes The patient was not seen by me. The chart was reviewed. Case discussed with LESLIE Ibarra. Agree with assessment and plan Subjective Patient seen and evaluated at bedside with 1:1 PRESS SETUP OPERATOR present. He was calm in the room and reading his Bible at this time. He denies any acute complaints or concerns. RN reports he is eating about 50% or more of his meals and drinking appropriate amounts of water. He slept most of the night. RN reports he was upset and agitated this morning after being told that his father is . He was not combative during this time. And was redirectable. Physical Exam Physical Exam: General: No acute distress, nondiaphoretic, well-developed, well-nourished. Cardiac: Regular rate and rhythm without murmurs gallops or rubs. Pulm: Clear to auscultation bilaterally without wheezes, rales or rhonchi. Normal respiratory effort. 95% on room air. Abdominal: Soft, nontender, nondistended. Bowel sounds present. Neuro: A&O x1 (self, baseline). No focal neurological deficits. Results & Data Results & Data Vital Signs (Past 12 Hours) Vital Signs Temp Pulse Resp BP Pulse Ox O2 Del Method 01/04/25 11:02 97.9 F 64 18 107/65 95 Room Air 01/04/25 08:49 Room Air 01/04/25 07:06 98.1 F 88 18 148/65 H 96 Room Air PG Care Time/CCT Total # of Minutes Spent Total Time Spent with Patient: Total time spent is greater than 50% in coordination of care (as documented) at patient's floor/unit and/or counseling patient: Coding Level of Care Code 88617 SUB INP/OBS CARE 11/17MIN Diagnoses Altered mental status R41.82 Combative behavior R46.89 COVID-19 U07.1 Hypotension I95.9
--- NOTE | 2025-01-05 14:46 | Hospitalist Progress Note ---
Date of Service January 05, 2025 Assessment & Plan (1) Altered mental status: (2) Combative behavior: (3) COVID-19: (4) Hypotension: Plan 79-year-old male PMHx mild cognitive impairment/dementia, B12 deficiency, CKD stage III, HTN, LORRIE, dyslipidemia, and chronic anemia. He presented for subacute change in mental status with steady decline over past 1 month. Mr. Borrero becomes agitated and harms family members at home, mainly his , which results in a safety concern for her. He was started on memantine and risperidone approximately 1 week prior to admission - low suspicion this medication addition is the cause given his agitation has been worsening x 1 month. He did test positive for COVID-19 on admission and is asymptomatic in this regard. He had a neurology referral from his PCP, but has not yet had a chance to follow-up with neurology. He continues to have a 1:1 sitter at bedside due to being an elopement risk; he has not displayed aggression towards staff. #AMS/Combative - Labs unremarkable including CBC, CMP, TSH, UA. CT head completed 12/20/2024 without acute findings - BioFire positive for COVID, do not suspect this is the underlying etiology to his confusion/combativeness as patient has been asymptomatic and has had prog ressive mental decline over the past month - Psych consulted- recs include sertraline 25mg daily, Quetiapine 12.5mg AM/1PM and Quetiapine 25mg HS. Behavioral emergencies use Olanzapine 2.5mg PO/IM BID PRN. Discontinued memantine and risperidone - Remains on 1:1, more for elopement risk than for agitation #COVID-19 COVID 19 diagnosed on admission. Unclear duration of illness and asymptomatic - deferred remdesivir and dexamethasone on admission CXR with atelectasis vs pulm edema and presence of small bilateral pleural effusions IS, flutter valve as needed; stable on room air COVID-19 isolation precautions #Hypotension On 01/01, patient's blood pressure did drop to a low of 91/58. Suspect secondary to dehydration and poor p.o. intake Received 500 cc bolus with IV fluid maintenance overnight with improvement in BP, now normotensive Chronic conditions: BPH: Tamsulosin HLD: Simvastatin HTN: Continue metoprolol, lisinopril Dispo: Continued inpatient stay while awaiting placement. Patient still requiring 1:1 observation and is on isolation precautions for COVID VTE Prophylaxis: SCDthuy, Angienox Admission and Anticipated Discharge Date Admission Date: December 28, 2024 Supervising Physician Co-Signing Physician Notes chart reviewed. case d/w S Gross PAC - as above Subjective Patient seen and evaluated in bedside chair with 1:1 MANAGER TRAINEE present. He reports sleeping well overnight and has a fair appetite. We discussed liberalizing his diet from heart healthy to regular so he has more dietary options. Per RN, he has remained calm and cooperative today. No complaints or concerns at this time. Physical Exam Physical Exam: General: No acute distress, nondiaphoretic, well-developed, well-nourished. Cardiac: Well-perfused. Rate in 80s. Pulm: Normal respiratory effort. 92% on room air. Neuro: A&O x1 (self). No focal neurological deficits. Results & Data Results & Data Vital Signs (Past 12 Hours) Vital Signs Temp Pulse Resp BP Pulse Ox O2 Del Method 01/05/25 08:48 97.7 F 90 18 100/62 92 Room Air 01/05/25 07:38 Room Air PG Care Time/CCT Total # of Minutes Spent Total Time Spent with Patient: Total time spent is greater than 50% in coordination of care (as documented) at patient's floor/unit and/or counseling patient: Coding Level of Care Code 05045 SUB INP/OBS CARE 11/17MIN Diagnoses Altered mental status R41.82 Combative behavior R46.89 COVID-19 U07.1 Hypotension I95.9
--- NOTE | 2025-01-06 13:15 | Hospitalist Progress Note ---
Date of Service January 06, 2025 Assessment & Plan (1) Altered mental status: (2) Combative behavior: (3) COVID-19: (4) Hypotension: Plan 79-year-old male PMHx mild cognitive impairment/dementia, B12 deficiency, CKD stage III, HTN, LORRIE, dyslipidemia, and chronic anemia. He presented for subacute change in mental status with steady decline over past 1 month. Mr. Borrero becomes agitated and harms family members at home, mainly his , which results in a safety concern for her. He was started on memantine and risperidone approximately 1 week prior to admission - low suspicion this medication addition is the cause given his agitation has been worsening x 1 month. He did test positive for COVID-19 on admission and is asymptomatic in this regard. He had a neurology referral from his PCP, but has not yet had a chance to follow-up with neurology. He continues to have a 1:1 sitter at bedside due to being an elopement risk; he has not displayed aggression towards staff. #AMS/Combative Labs unremarkable including CBC, CMP, TSH, UA. CT head completed 12/20/2024 without acute findings BioFire positive for COVID, do not suspect this is the underlying etiology to his confusion/combativeness as patient has been asymptomatic and has had progressive mental decline over the past month Psych consulted- recs include sertraline 25mg daily, Quetiapine 12.5mg AM/1PM and Quetiapine 25mg HS. Behavioral emergencies use Olanzapine 2.5mg PO/IM BID PRN. Discontinued memantine and risperidone Remains on 1:1, more for elopement risk than for agitation #COVID-19 COVID 19 diagnosed on admission. Unclear duration of illness and asymptomatic - deferred remdesivir and dexamethasone on admission CXR with atelectasis vs pulm edema and presence of small bilateral pleural effusions IS, flutter valve as needed; stable on room air COVID-19 isolation precautions #Hypotension On 01/01, patient's blood pressure did drop to a low of 91/58. Suspect secondary to dehydration and poor p.o. intake Received 500 cc bolus with IV fluid maintenance overnight with improvement in BP, now normotensive Chronic conditions: BPH: Tamsulosin HLD: Simvastatin HTN: Continue metoprolol, lisinopril Dispo: Continued inpatient stay while awaiting placement. Patient still requiring 1:1 observation for elopement risk/redirection and is on isolation precautions for COVID VTE Prophylaxis: SCDs, Lovenox Admission and Anticipated Discharge Date Admission Date: December 28, 2024 Supervising Physician Co-Signing Physician Notes chart reviewed. case d/w S Gross PAC - as above Subjective Patient seen and evaluated in bedside chair with 1:1 SUPERVISOR COIL SPRINGS present. SUPERVISOR COIL SPRINGS reports that he is more agitated today and has attempted to leave the room multiple times requiring redirection. Ayad reports that he feels well and is waiting for his and parents to come pick him up from the hospital. He states he had no appetite for lunch. No additional complaints or concerns at this time. Physical Exam Physical Exam: General: No acute distress, nondiaphoretic, well-developed, well-nourished. Calm and cooperative but does require redirection. Cardiac: Well-perfused. Rate in 80s. Pulm: Normal respiratory effort. 94% on room air. Neuro: A&O x1 (self). No focal neurological deficits. Results & Data Results & Data Vital Signs (Past 12 Hours) Vital Signs Temp Pulse Resp BP Pulse Ox O2 Del Method 01/06/25 08:02 98.4 F 86 18 116/60 94 Room Air PG Care Time/CCT Total # of Minutes Spent Total Time Spent with Patient: Total time spent is greater than 50% in coordination of care (as documented) at patient's floor/unit and/or counseling patient: Coding Level of Care Code 30459 SUB INP/OBS CARE 11/17MIN Diagnoses Altered mental status R41.82 Combative behavior R46.89 COVID-19 U07.1 Hypotension I95.9
--- NOTE | 2025-01-07 14:57 | Hospitalist Progress Note ---
Date of Service January 07, 2025 Assessment & Plan (1) Altered mental status: (2) Combative behavior: (3) COVID-19: (4) Hypotension: Plan 79-year-old male PMHx mild cognitive impairment/dementia, B12 deficiency, CKD stage III, HTN, LORRIE, dyslipidemia, and chronic anemia. He presented for subacute change in mental status with steady decline over past 1 month. Mr. Borrero becomes agitated and harms family members at home, mainly his , which results in a safety concern for her. He was started on memantine and risperidone approximately 1 week prior to admission - low suspicion this medication addition is the cause given his agitation has been worsening x 1 month. He did test positive for COVID-19 on admission and is asymptomatic in this regard. He had a neurology referral from his PCP, but has not yet had a chance to follow-up with neurology. He continues to have a 1:1 sitter at bedside due to being an elopement risk; he has not displayed aggression towards staff. #AMS/Combative Labs unremarkable including CBC, CMP, TSH, UA. CT head completed 12/20/2024 without acute findings BioFire positive for COVID, do not suspect this is the underlying etiology to his confusion/combativeness as patient has been asymptomatic and has had progressive mental decline over the past month Psych consulted- recs include sertraline 25mg daily, Quetiapine 12.5mg AM/1PM and Quetiapine 25mg HS. Behavioral emergencies use Olanzapine 2.5mg PO/IM BID PRN. Discontinued memantine and risperidone Remains on 1:1 for elopement risk. He has not displayed aggression towards staff #COVID-19 COVID 19 diagnosed on admission. Unclear duration of illness and asymptomatic - deferred remdesivir and dexamethasone on admission CXR with atelectasis vs pulm edema and presence of small bilateral pleural effusions IS, flutter valve as needed; stable on room air COVID-19 isolation precautions discontinued 01/07 #Hypotension On 01/01, patient's blood pressure did drop to a low of 91/58. Suspect secondary to dehydration and poor p.o. intake Received 500 cc bolus with IV fluid maintenance overnight with improvement in BP, now normotensive Chronic conditions: BPH: Tamsulosin HLD: Simvastatin HTN: Continue metoprolol, lisinopril Dispo: Continued inpatient stay while awaiting placement. Patient still requiring 1:1 observation for elopement risk/redirection. Now off isolation pr ecautions VTE Prophylaxis: SCDs, Lovenox Admission and Anticipated Discharge Date Admission Date: December 28, 2024 Subjective Patient seen and evaluated with 1:1 DIRECTOR OF MEDICAL STAFF SERVICES present at bedside. He remains pleasantly confused. He slept well last night, and ate the majority of his b reakfast and lunch today. He denies any complaints or concerns at this time. He is now off isolation precautions. No agitation or combativeness with staff, 1:1 continues for elopement risk. Physical Exam Physical Exam: General: No acute distress, nondiaphoretic, well-developed, well-nourished. Calm and cooperative but does require redirection. Cardiac: Well-perfused. Rate in 60s. Pulm: Normal respiratory effort. 96% on room air. Neuro: A&O x1 (self). No focal neurological deficits. Results & Data Results & Data Vital Signs (Past 12 Hours) Vital Signs Temp Pulse Resp BP BP Pulse Ox O2 Del Method 01/07/25 14:52 97.9 F 113 H 16 121/73 96 Room Air 01/07/25 11:17 98.1 F 67 16 106/65 97 Room Air 01/07/25 07:47 97.9 F 59 L 16 99/59 L 95 Room Air PG Care Time/CCT Total # of Minutes Spent Total Time Spent with Patient: Total time spent is greater than 50% in coordination of care (as documented) at patient's floor/unit and/or counseling patient: Coding Level of Care Code 68139 SUB INP/OBS CARE 11/17MIN Diagnoses Altered mental status R41.82 Combative behavior R46.89 COVID-19 U07.1 Hypotension I95.9
--- NOTE | 2025-01-08 14:42 | Hospitalist Progress Note ---
Date of Service January 08, 2025 Assessment & Plan (1) Altered mental status: (2) Combative behavior: (3) COVID-19: (4) Hypotension: Plan 79-year-old male PMHx mild cognitive impairment/dementia, B12 deficiency, CKD stage III, HTN, LORRIE, dyslipidemia, and chronic anemia. He presented for subacute change in mental status with steady decline over past 1 month. Mr. Borrero becomes agitated and harms family members at home, mainly his , which results in a safety concern for her. He was started on memantine and risperidone approximately 1 week prior to admission - low suspicion this medication addition is the cause given his agitation has been worsening x 1 month. He did test positive for COVID-19 on admission and is asymptomatic in this regard. He had a neurology referral from his PCP, but has not yet had a chance to follow-up with neurology. #AMS/Combative Labs unremarkable including CBC, CMP, TSH, UA. CT head completed 12/20/2024 without acute findings BioFire positive for COVID, do not suspect this is the underlying etiology to his confusion/combativeness as patient has been asymptomatic and has had progressive mental decline over the past month Psych consulted- recs include sertraline 25mg daily, Quetiapine 12.5mg AM/1PM and Quetiapine 25mg HS. Behavioral emergencies use Olanzapine 2.5mg PO/IM BID PRN. Discontinued memantine and risperidone Switched 1:1 to prn for elopement risk. Patient has not displayed aggressive behavior towards staff. #COVID-19, resolved COVID 19 diagnosed on admission. Unclear duration of illness and asymptomatic - deferred remdesivir and dexamethasone on admission CXR with atelectasis vs pulm edema and presence of small bilateral pleural effusions IS, flutter valve as needed; stable on room air COVID-19 isolation precautions discontinued 01/07 #Hypotension On 01/01, patient's blood pressure did drop to a low of 91/58. Suspect secondary to dehydration and poor p.o. intake Received 500 cc bolus with IV fluid maintenance overnight with improvement in BP, now normotensive Chronic conditions: BPH: Tamsulosin HLD: Simvastatin HTN: Continue metoprolol, lisinopril VTE Prophylaxis: SCDs, Lovenox Code: DNRI/DNI Patient medically stable for discharge, pending placement. 1:1 switched to prn for elopement risk. Admission and Anticipated Discharge Date Admission Date: December 28, 2024 Subjective Patient seen and examined this morning. Patient pleasantly confused at time of encounter. industrial health and safety professor present. patient denied any complaints today. Physical Exam Constitutional: WD/WN, vitals as above Eyes: PERRL, conjunctivae normal, anicteric sclerae Respiratory: breathing unlabored Cardiovascular: well perfused Psychiatric: pleasantly confused Results & Data Results & Data Vital Signs (Past 12 Hours) Vital Signs Temp Pulse Resp BP Pulse Ox O2 Del Method 01/08/25 11:00 36.6 C 54 L 16 109/66 96 Room Air 01/08/25 07:00 36.5 C 69 18 123/76 97 Room Air PG Care Time/CCT Total # of Minutes Spent Total Time Spent with Patient: Total time spent is greater than 50% in coordination of care (as documented) at patient's floor/unit and/or counseling patient: Coding Level of Care Code 92341 SUB INP/OBS CARE 11/17MIN Diagnoses Altered mental status R41.82 Combative behavior R46.89 COVID-19 U07.1 Hypotension I95.9
--- NOTE | 2025-01-09 14:53 | Hospitalist Progress Note ---
Date of Service January 09, 2025 Assessment & Plan (1) Altered mental status: (2) Combative behavior: (3) COVID-19: (4) Hypotension: Plan 79-year-old male PMHx mild cognitive impairment/dementia, B12 deficiency, CKD stage III, HTN, LORRIE, dyslipidemia, and chronic anemia. He presented for subacute change in mental status with steady decline over past 1 month. Mr. Borrero becomes agitated and harms family members at home, mainly his , which results in a safety concern for her. He was started on memantine and risperidone approximately 1 week prior to admission - low suspicion this medication addition is the cause given his agitation has been worsening x 1 month. He did test positive for COVID-19 on admission and is asymptomatic in this regard. He had a neurology referral from his PCP, but has not yet had a chance to follow-up with neurology. #AMS/Combative Labs unremarkable including CBC, CMP, TSH, UA. CT head completed 12/20/2024 without acute findings Psych consulted- recs include sertraline 25mg daily, Quetiapine 12.5mg AM/1PM and Quetiapine 25mg HS. Behavioral emergencies use Olanzapine 2.5mg PO/IM BID PRN. Discontinued memantine and risperidone Switched 1:1 to prn for elopement risk. Patient has not displayed aggressive behavior towards staff. #COVID-19, resolved COVID 19 diagnosed on admission. Unclear duration of illness and asymptomatic - deferred remdesivir and dexamethasone on admission CXR with atelectasis vs pulm edema and presence of small bilateral pleural effusions IS, flutter valve as needed; stable on room air COVID-19 isolation precautions discontinued 01/07 #Hypotension On 01/01, patient's blood pressure did drop to a low of 91/58. Suspect secondary to dehydration and poor p.o. intake Received 500 cc bolus with IV fluid maintenance overnight with improvement in BP, now normotensive Chronic conditions: BPH: Tamsulosin HLD: Simvastatin HTN: Continue metoprolol, lisinopril VTE Prophylaxis: SCDs, Lovenox Code: DNRI/DNI Patient medically stable for discharge, pending placement. 1:1 switched to prn for elopement risk. Admission and Anticipated Discharge Date Admission Date: December 28, 2024 Subjective Patient seen and examined this morning. Patient denied any complaints today. He was pleasantly confused at time of encounter. Physical Exam Constitutional: WD/WN, vitals as above Eyes: PERRL, conjunctivae normal, anicteric sclerae Respiratory: breathing unlabored Cardiovascular: well perfused Psychiatric: pleasantly confused Results & Data Results & Data Vital Signs (Past 12 Hours) Vital Signs Temp Pulse Resp BP Pulse Ox O2 Del Method 01/09/25 07:52 36.5 C 100 H 18 100/64 97 Room Air PG Care Time/CCT Total # of Minutes Spent Total Time Spent with Patient: Total time spent is greater than 50% in coordination of care (as documented) at patient's floor/unit and/or counseling patient: Coding Level of Care Code 12183 SUB INP/OBS CARE 11/17MIN Diagnoses Altered mental status R41.82 Combative behavior R46.89 COVID-19 U07.1 Hypotension I95.9
--- NOTE | 2025-01-10 09:38 | Hospitalist Progress Note ---
Date of Service January 10, 2025 Assessment & Plan (1) Altered mental status: (2) Combative behavior: (3) COVID-19: (4) Hypotension: Plan 79-year-old male PMHx mild cognitive impairment/dementia, B12 deficiency, CKD stage III, HTN, LORRIE, dyslipidemia, and chronic anemia. He presented for subacute change in mental status with steady decline over past 1 month. Mr. Borrero becomes agitated and harms family members at home, mainly his , which results in a safety concern for her. He was started on memantine and risperidone approximately 1 week prior to admission - low suspicion this medication addition is the cause given his agitation has been worsening x 1 month. He did test positive for COVID-19 on admission and is asymptomatic in this regard. He had a neurology referral from his PCP, but has not yet had a chance to follow-up with neurology. #AMS/Combative Labs unremarkable including CBC, CMP, TSH, UA. CT head completed 12/20/2024 without acute findings Psych consulted- recs include sertraline 25mg daily, Quetiapine 12.5mg AM/1PM and Quetiapine 25mg HS. Behavioral emergencies use Olanzapine 2.5mg PO/IM BID PRN. Discontinued memantine and risperidone Switched 1:1 to prn for elopement risk. Patient has not displayed aggressive behavior towards staff. #COVID-19, resolved COVID 19 diagnosed on admission. Unclear duration of illness and asymptomatic - deferred remdesivir and dexamethasone on admission CXR with atelectasis vs pulm edema and presence of small bilateral pleural effusions IS, flutter valve as needed; stable on room air COVID-19 isolation precautions discontinued 01/07 #Hypotension On 01/01, patient's blood pressure did drop to a low of 91/58. Suspect secondary to dehydration and poor p.o. intake Received 500 cc bolus with IV fluid maintenance overnight with improvement in BP, now normotensive Chronic conditions: BPH: Tamsulosin HLD: Simvastatin HTN: Continue metoprolol, lisinopril VTE Prophylaxis: SCDs, Lovenox Code: DNRI/DNI Patient medically stable for discharge, pending placement. 1:1 switched to prn for elopement risk. Admission and Anticipated Discharge Date Admission Date: December 28, 2024 Subjective Patient seen and examined this morning. Patient pleasant and confused at time of encounter. He endorsed no complaints. Sitter at bedside reports patient has been well behaved this morning. Physical Exam Constitutional: WD/WN, vitals as above Eyes: PERRL, conjunctivae normal, anicteric sclerae Respiratory: breathing unlabored Cardiovascular: well perfused Psychiatric: pleasant and confused Results & Data Results & Data Vital Signs (Past 12 Hours) Vital Signs Temp Pulse Resp BP Pulse Ox O2 Del Method 01/10/25 07:17 36.5 C 70 18 146/70 H 98 Room Air PG Care Time/CCT Total # of Minutes Spent Total Time Spent with Patient: Total time spent is greater than 50% in coordination of care (as documented) at patient's floor/unit and/or counseling patient: Coding Level of Care Code 02708 SUB INP/OBS CARE 11/17MIN Diagnoses Altered mental status R41.82 Combative behavior R46.89 COVID-19 U07.1 Hypotension I95.9
--- NOTE | 2025-01-11 14:42 | Hospitalist Progress Note ---
Date of Service January 11, 2025 Assessment & Plan (1) Altered mental status: (2) Combative behavior: (3) COVID-19: (4) Hypotension: Plan 79-year-old male PMHx mild cognitive impairment/dementia, B12 deficiency, CKD stage III, HTN, LORRIE, dyslipidemia, and chronic anemia. He presented for subacute change in mental status with steady decline over past 1 month. Mr. Borrero becomes agitated and harms family members at home, mainly his , which results in a safety concern for her. He was started on memantine and risperidone approximately 1 week prior to admission - low suspicion this medication addition is the cause given his agitation has been worsening x 1 month. He did test positive for COVID-19 on admission and is asymptomatic in this regard. He had a neurology referral from his PCP, but has not yet had a chance to follow-up with neurology. #AMS/Combative Labs unremarkable including CBC, CMP, TSH, UA. CT head completed 12/20/2024 without acute findings Psych consulted- recs include sertraline 25mg daily, Quetiapine 12.5mg AM/1PM and Quetiapine 25mg HS. Behavioral emergencies use Olanzapine 2.5mg PO/IM BID PRN. Discontinued memantine and risperidone Switched 1:1 to prn for elopement risk. Patient has not displayed aggressive behavior towards staff. #COVID-19, resolved COVID 19 diagnosed on admission. Unclear duration of illness and asymptomatic - deferred remdesivir and dexamethasone on admission CXR with atelectasis vs pulm edema and presence of small bilateral pleural effusions IS, flutter valve as needed; stable on room air COVID-19 isolation precautions discontinued 01/07 #Hypotension On 01/01, patient's blood pressure did drop to a low of 91/58. Suspect secondary to dehydration and poor p.o. intake Lisinopril on hold 01/11. --> if pressures remain stable, can likely dc on discharge. Chronic conditions: BPH: Tamsulosin HLD: Simvastatin HTN: Continue metoprolol VTE Prophylaxis: SCDs, Lovenox Code: DNRI/DNI Patient medically stable for discharge, plan for discharge 01/16 to [facility], packet of information filled out for [facility] 01/11. Admission and Anticipated Discharge Date Admission Date: December 28, 2024 Subjective Patient seen and examined this morning. Denied any complaints, remains pleasantly confused. Physical Exam Constitutional: WD/WN, vitals as above Eyes: PERRL, conjunctivae normal, anicteric sclerae Respiratory: breathing unlabored Cardiovascular: well perfused Psychiatric: pleasant, confused Results & Data Results & Data Vital Signs (Past 12 Hours) Vital Signs Temp Pulse Pulse Resp BP Pulse Ox O2 Del Method 01/11/25 09:05 88 111/59 L 01/11/25 07:15 36.6 C 105 H 16 114/72 96 Room Air PG Care Time/CCT Total # of Minutes Spent Total Time Spent with Patient: Total time spent is greater than 50% in coordination of care (as documented) at patient's floor/unit and/or counseling patient: Coding Level of Care Code 02735 SUB INP/OBS CARE 2/35MIN Diagnoses Altered mental status R41.82 Combative behavior R46.89 COVID-19 U07.1 Hypotension I95.9
--- NOTE | 2025-01-12 13:16 | Hospitalist Progress Note ---
Date of Service January 12, 2025 Assessment & Plan (1) Altered mental status: (2) Combative behavior: (3) COVID-19: (4) Hypotension: Plan 79-year-old male PMHx mild cognitive impairment/dementia, B12 deficiency, CKD stage III, HTN, LORRIE, dyslipidemia, and chronic anemia. He presented for subacute change in mental status with steady decline over past 1 month. Mr. Borrero becomes agitated and harms family members at home, mainly his , which results in a safety concern for her. He was started on memantine and risperidone approximately 1 week prior to admission - low suspicion this medication addition is the cause given his agitation has been worsening x 1 month. He did test positive for COVID-19 on admission and is asymptomatic in this regard. He had a neurology referral from his PCP, but has not yet had a chance to follow-up with neurology. #AMS/Combative Labs unremarkable including CBC, CMP, TSH, UA. CT head completed 12/20/2024 without acute findings Psych consulted- recs include sertraline 25mg daily, Quetiapine 12.5mg AM/1PM and Quetiapine 25mg HS. Behavioral emergencies use Olanzapine 2.5mg PO/IM BID PRN. Discontinued memantine and risperidone Switched 1:1 to prn for elopement risk. Patient has not displayed aggressive behavior towards staff. #COVID-19, resolved COVID 19 diagnosed on admission. Unclear duration of illness and asymptomatic - deferred remdesivir and dexamethasone on admission CXR with atelectasis vs pulm edema and presence of small bilateral pleural effusions IS, flutter valve as needed; stable on room air COVID-19 isolation precautions discontinued 01/07 #Hypotension On 01/01, patient's blood pressure did drop to a low of 91/58. Suspect secondary to dehydration and poor p.o. intake Lisinopril on hold 01/11. --> if pressures remain stable, can likely dc on discharge. Chronic conditions: BPH: Tamsulosin HLD: Simvastatin HTN: Continue metoprolol VTE Prophylaxis: SCDs, Lovenox Code: DNRI/DNI Patient medically stable for discharge, plan for discharge 01/16 to [facility], packet of information filled out for [facility] 01/11. Admission and Anticipated Discharge Date Admission Date: December 28, 2024 Subjective Patient seen and examined this morning. patient pleasant, reading in his chair at time of encounter. He reported he feels well today. Physical Exam Constitutional: WD/WN, vitals as above Eyes: PERRL, conjunctivae normal, anicteric sclerae Respiratory: breathing unlabored Cardiovascular: well perfused Psychiatric: pleasant, confused Results & Data Results & Data Vital Signs (Past 12 Hours) Vital Signs Temp Pulse Resp BP Pulse Ox O2 Del Method 01/12/25 09:00 36.7 C 89 18 109/67 97 Room Air PG Care Time/CCT Total # of Minutes Spent Total Time Spent with Patient: Total time spent is greater than 50% in coordination of care (as documented) at patient's floor/unit and/or counseling patient: Coding Level of Care Code 90688 SUB INP/OBS CARE 11/17MIN Diagnoses Altered mental status R41.82 Combative behavior R46.89 COVID-19 U07.1 Hypotension I95.9
--- NOTE | 2025-01-13 13:30 | Hospitalist Progress Note ---
Date of Service January 13, 2025 Assessment & Plan (1) Altered mental status: (2) Combative behavior: (3) COVID-19: (4) Hypotension: Plan 79-year-old male PMHx mild cognitive impairment/dementia, B12 deficiency, CKD stage III, HTN, LORRIE, dyslipidemia, and chronic anemia. He presented for subacute change in mental status with steady decline over past 1 month. Mr. Borrero becomes agitated and harms family members at home, mainly his , which results in a safety concern for her. He was started on memantine and risperidone approximately 1 week prior to admission - low suspicion this medication addition is the cause given his agitation has been worsening x 1 month. He did test positive for COVID-19 on admission and is asymptomatic in this regard. He had a neurology referral from his PCP, but has not yet had a chance to follow-up with neurology. #AMS/Combative Labs unremarkable including CBC, CMP, TSH, UA. CT head completed 12/20/2024 without acute findings Psych consulted- recs include sertraline 25mg daily, Quetiapine 12.5mg AM/1PM and Quetiapine 25mg HS. Behavioral emergencies use Olanzapine 2.5mg PO/IM BID PRN. Discontinued memantine and risperidone Switched 1:1 to prn for elopement risk. Patient has not displayed aggressive behavior towards staff. #COVID-19, resolved COVID 19 diagnosed on admission. Unclear duration of illness and asymptomatic - deferred remdesivir and dexamethasone on admission CXR with atelectasis vs pulm edema and presence of small bilateral pleural effusions IS, flutter valve as needed; stable on room air COVID-19 isolation precautions discontinued 01/07 #Hypotension On 01/01, patient's blood pressure did drop to a low of 91/58. Suspect secondary to dehydration and poor p.o. intake Lisinopril on hold 01/11. --> if pressures remain stable, can likely dc on discharge. Chronic conditions: BPH: Tamsulosin HLD: Simvastatin HTN: Continue metoprolol VTE Prophylaxis: SCDs, Lovenox Code: DNRI/DNI Patient medically stable for discharge, plan for discharge 01/16 to [facility], packet of information filled out for [facility] 01/11 and 01/13 Admission and Anticipated Discharge Date Admission Date: December 28, 2024 Subjective Patient seen and examined this morning. Patient sitting in chair at time of encounter, confused. Endorsed no complaints. Physical Exam Constitutional: WD/WN, vitals as above Eyes: PERRL, conjunctivae normal, anicteric sclerae Respiratory: breathing unlabored Cardiovascular: well perfused Results & Data Results & Data Vital Signs (Past 12 Hours) Vital Signs Temp Pulse Resp BP Pulse Ox O2 Del Method 01/13/25 08:01 36.6 C 87 16 111/61 98 Room Air PG Care Time/CCT Total # of Minutes Spent Total Time Spent with Patient: Total time spent is greater than 50% in coordination of care (as documented) at patient's floor/unit and/or counseling patient: Coding Level of Care Code 32557 SUB INP/OBS CARE 11/17MIN Diagnoses Altered mental status R41.82 Combative behavior R46.89 COVID-19 U07.1 Hypotension I95.9
--- NOTE | 2025-01-14 14:24 | Hospitalist Progress Note ---
Date of Service January 14, 2025 Assessment & Plan (1) Altered mental status: (2) Combative behavior: (3) COVID-19: (4) Hypotension: Plan 79-year-old male PMHx mild cognitive impairment/dementia, B12 deficiency, CKD stage III, HTN, LORRIE, dyslipidemia, and chronic anemia. He presented for subacute change in mental status with steady decline over past 1 month. Mr. Borrero becomes agitated and harms family members at home, mainly his , which results in a safety concern for her. He was started on memantine and risperidone approximately 1 week prior to admission - low suspicion this medication addition is the cause given his agitation has been worsening x 1 month. He did test positive for COVID-19 on admission and is asymptomatic in this regard. He had a neurology referral from his PCP, but has not yet had a chance to follow-up with neurology. #AMS/Combative Labs unremarkable including CBC, CMP, TSH, UA. CT head completed 12/20/2024 without acute findings Psych consulted- recs include sertraline 25mg daily, Quetiapine 12.5mg AM/1PM and Quetiapine 25mg HS. Behavioral emergencies use Olanzapine 2.5mg PO/IM BID PRN. Discontinued memantine and risperidone Switched 1:1 to prn for elopement risk. Patient has not displayed aggressive behavior towards staff. #COVID-19, resolved COVID 19 diagnosed on admission. Unclear duration of illness and asymptomatic - deferred remdesivir and dexamethasone on admission CXR with atelectasis vs pulm edema and presence of small bilateral pleural effusions IS, flutter valve as needed; stable on room air COVID-19 isolation precautions discontinued 01/07 #Hypotension On 01/01, patient's blood pressure did drop to a low of 91/58. Suspect secondary to dehydration and poor p.o. intake Lisinopril on hold 01/11. --> if pressures remain stable, can likely dc on discharge. Chronic conditions: BPH: Tamsulosin HLD: Simvastatin HTN: Continue metoprolol VTE Prophylaxis: SCDs, Lovenox Code: DNRI/DNI Patient medically stable for discharge, plan for discharge 01/16 to [facility], packet of information filled out for [facility] 01/11 and 01/13 Admission and Anticipated Discharge Date Admission Date: December 28, 2024 Subjective Patient seen and examined this morning. Patient was sitting in bed at time of encounter. puncher and fastener at beside. patient endorsed no complaints. Physical Exam Constitutional: WD/WN, vitals as above Eyes: PERRL, conjunctivae normal, anicteric sclerae Respiratory: breathing unlabored Cardiovascular: well perfused Psychiatric: pleasant, confused PG Care Time/CCT Total # of Minutes Spent Total Time Spent with Patient: Total time spent is greater than 50% in coordination of care (as documented) at patient's floor/unit and/or counseling patient: Coding Level of Care Code 11235 SUB INP/OBS CARE /25MIN Diagnoses Altered mental status R41.82 Combative behavior R46.89 COVID-19 U07.1 Hypotension I95.9
--- NOTE | 2025-01-15 17:32 | Hospitalist Progress Note ---
Date of Service January 15, 2025 Assessment & Plan (1) Altered mental status: (2) Combative behavior: (3) COVID-19: (4) Hypotension: Plan 79-year-old male PMHx mild cognitive impairment/dementia, B12 deficiency, CKD stage III, HTN, LORRIE, dyslipidemia, and chronic anemia. He presented for subacute change in mental status with steady decline over past 1 month. Mr. Borrero becomes agitated and harms family members at home, mainly his , which results in a safety concern for her. He was started on memantine and risperidone approximately 1 week prior to admission - low suspicion this medication addition is the cause given his agitation has been worsening x 1 month. He did test positive for COVID-19 on admission and is asymptomatic in this regard. He had a neurology referral from his PCP, but has not yet had a chance to follow-up with neurology. #AMS/Combative Labs unremarkable including CBC, CMP, TSH, UA. CT head completed 12/20/2024 without acute findings Psych consulted- recs include sertraline 25mg daily, Quetiapine 12.5mg AM/1PM and Quetiapine 25mg HS. Behavioral emergencies use Olanzapine 2.5mg PO/IM BID PRN. Discontinued memantine and risperidone Switched 1:1 to prn for elopement risk. Patient has not displayed aggressive behavior towards staff. #COVID-19, resolved COVID 19 diagnosed on admission. Unclear duration of illness and asymptomatic - deferred remdesivir and dexamethasone on admission CXR with atelectasis vs pulm edema and presence of small bilateral pleural effusions IS, flutter valve as needed; stable on room air COVID-19 isolation precautions discontinued 01/07 #Hypotension On 01/01, patient's blood pressure did drop to a low of 91/58. Suspect secondary to dehydration and poor p.o. 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 He reports a decreased appetite but otherwise denies any acute complaints or concerns at this time. He has remained calm and cooperative today per RN. Physical Exam Physical Exam: General: No acute distress, nondiaphoretic, well-developed, well-nourished. Calm and cooperative but does require redirection. Cardiac: Well-perfused. Rate in 80s. Pulm: Normal respiratory effort. 95% on room air. Neuro: A&O x1 (self). No focal neurological deficits. PG Care Time/CCT Total # of Minutes Spent Total Time Spent with Patient: Total time spent is greater than 50% in coordination of care (as documented) at patient's floor/unit and/or counseling patient: Coding Level of Care Code 94066 SUB INP/OBS CARE 11/17MIN Diagnoses Altered mental status R41.82 Combative behavior R46.89 COVID-19 U07.1 Hypotension I95.9
[2025-01-15 19:05] VITALS: RESP 18
[2025-01-16 07:52] VITALS: BP 108/66; PULSE 85; TEMP 97.9; O2SAT 95
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
== END 2025-01-16 10:51 | disposition home or self-care (01) | DRG 884 ==
LOC: ED 19:44 → EDINP 22:49 → SUATTDRO 22:49 → EDINP 23:24 → 3E 12-29 01:58
DX: I95.9 Hypotension, unspecified; E86.0 Dehydration; Z88.5 Allergy status to narcotic agent; J90 Pleural effusion, not elsewhere classified; Z91.83 Wandering in diseases classified elsewhere; I12.9 Hypertensive chronic kidney disease with stage 1 through stage 4 chronic kidney disease, or unspecified chronic kidney disease; N18.30 Chronic kidney disease, stage 3 unspecified; Z66 Do not resuscitate; D64.9 Anemia, unspecified; F05 Delirium due to known physiological condition; E53.8 Deficiency of other specified B group vitamins; F03.918 Unspecified dementia, unspecified severity, with other behavioral disturbance; E78.5 Hyperlipidemia, unspecified; U07.1 COVID-19; Z87.891 Personal history of nicotine dependence; G47.33 Obstructive sleep apnea (adult) (pediatric); N40.0 Benign prostatic hyperplasia without lower urinary tract symptoms

== ENCOUNTER 2025-03-10 14:52 | Inpatient (IN) ==
[2025-03-10 16:36] LABS: Basophils # (auto) 0.05 K/uL (0.00-0.20); Basophils % (auto) 0.9 %; Eosinophils # (auto) 0.11 K/uL (0.00-0.50); Eosinophils % (auto) 1.9 %; Hematocrit (blood only) 34.9 % (42.0-52.0); Immature Granulocytes # (auto) 0.01 K/uL (0.01-0.20); Immature Granulocytes % (auto) 0.2 %; Lymphocytes # (auto) 0.87 K/uL (1.20-3.40); Lymphocytes % (auto) 14.9 %; Mean Corpuscular Hemoglobin 33.1 pg (25.0-34.0); Mean Corpuscular Hgb Conc 34.4 g/dL (32.0-36.0); Mean Corpuscular Volume 96.4 fL (80.0-100.0); Mean Platelet Volume 11.1 fL (9.4-12.4); Monocytes % (auto) 10.3 %; Neutrophils # (auto) 4.21 K/uL (1.40-6.50); Neutrophils % (auto) 71.8 %; Platelet Count 152 K/uL (130-400); RDW Coefficient of Variation 14.7 % (11.5-14.5); RDW Standard Deviation 52.9 fL (36.4-46.3); Red Blood Count 3.62 M/uL (4.70-6.10); White Blood Count 5.85 K/ul (4.8-10.8)
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
[2025-03-10 16:50] LABS: Partial Thromboplastin Time 27 Seconds (21-31)
[2025-03-10 16:57] LABS: BUN Creatinine Ratio 22.5 (10-20); Calcium 8.8 mg/dl (8.6-10.3); Creatinine Clr Calc Pharmacy 66.2 ml/min; Potassium 3.5 mmol/L (3.5-5.1)
--- NOTE | 2025-03-10 17:05 | CT Scan Report ---
CT head without contrast History: AMS Comparison: 01/17/2025 Technique: Using multidetector thin collimation helical acquisition technique, axial, coronal and sagittal CT images from the skull base to the vertex were obtained without intravenous contrast. Dose reduction techniques were achieved by using automatic exposure control and/or adjustment of mA and/or kV according to patient size and/or use of iterative reconstruction technique. Findings: No intracranial hemorrhage, mass-effect, or midline shift. The ventricles are proportionate to the cerebral sulci. The osorio to white matter differentiation of the cerebral hemispheres is preserved. The basal cisterns are patent. There is marked generalized cerebral atrophy, which is conspicuously parietal lobe predominant. The visualized paranasal sinuses are clear. Mastoid air cells are clear. Impression: No acute intracranial pathology. There is marked cerebral atrophy which is conspicuously parietal lobe predominant, as may be seen with posterior cortical atrophy/Alzheimer's dementia. Electronically signed by Angel Valenzuela 03-10-2025 5:05 PM
--- NOTE | 2025-03-10 17:52 | History & Physical Report ---
Date of Service March 10, 2025 Assessment & Plan (1) Dementia with behavioral disturbance: (2) CKD (chronic kidney disease), stage III: (3) Hypertension: (4) Obstructive sleep apnea, adult: (5) Enlarged prostate without lower urinary tract symptoms (luts): Plan 80 y/o man with dementia, admitted with behavioral disturbance. Last few days has been having aggressive behavior. ED evaluations 03/09 and 03/10 did not identify any acute issues such as infection or metabolic disturbance. # Dementia with behavioral disturbance Head CT with atrophy pattern c/w Alzheimer's dementia. No acute changes. UA negative. Labs unremarkable. Reviewed medlist. no symptoms of acute illness and no signs on physical examination. he has no headache or meningismus, no evidence of infection including UTI, no recent medication changes, no environment changes, no evidence of stroke or acute encephalopathy on exam and he is at his baseline mental status. Similar admission 12/2024 led to placement at [facility]. Unclear what triggered this agitation episode, exacerbated by refusing his medications today. Seems to need medication adjustment, his is open to that. - Increase Seroquel to 50 mg in a.m. and 75 mg in at bedtime. dose bedtime meds at 8 PM to help head off any . - Olanzapine ODT 5 mg 3 times daily as needed agitation or refusal of Seroquel dose - olanzapine 5 mg IM as needed for severe agitation, refusal of oral as needed, or refusal of twice daily scheduled oral Seroquel/olanzapine ODT - Consult inpatient psychiatry monitor for any signs or symptoms of other acute illnesses and evaluate appropriate monitor QTc, currently acceptable # Anemia - stable acutely but Hg declined from 13-14-->12 since December - iron panel # CKD stage 3 - stable, avoid nephrotoxins # BPH, elevated PSA - continue Flomax # LORRIE - CPAP PT/OT DVT ppx - SCDs today, need chemoprophylaxis if hospital stay prolonged History of Present Illness Chief Complaint: sent in from [facility] for aggressive behavior x 2 days Primary Care Provider: [facility] 80 y/o with dementia with behavioral disturbance. Discharged from here late December for same issues at home but significantly improved after medication adjustments, placed at [facility]. Sent to ED yesterday for combative/aggressive behavior. ED evaluation negative for any acute medical problems. Send back in to ED today for the same . per [facility] documentation, ED triage and his at bedside he has been hitting del castillo and tables, kicked del castillo, refusing to take his meds. C/O right hand pain in the ED. His said he was angry because he was demanding his car keys and the staff did not have his keys, this was the same complaint he had in the past when he was angry at his before previous admission in December. Today he has refused his medications which made everything worse, however, she thinks he did take his medications yesterday. she says that the first 2-3 weeks at [facility] were pretty rough, the physician adjusted his Seroquel increasing it to 50 mg twice daily and low-dose as needed lorazepam was added for agitation. With these medication changes and adjustment to his new situation he has done extremely well until the last 48 hours. Usually the staff report he is one of the nicest residents and is cooperative. He has been eating very well and walking with PT and with a walker. There have been no falls and no acute medical issues since arrival at [facility]. She is not aware of any other medication changes and med list seems basically the same as previous discharge. He reports that he feels well, denies headache or head pain, no neck or back pain, no fevers, no shortness of breath or coughing, no chest pain, no abdominal pain, no nausea vomiting or diarrhea, no dysuria. He does have chronic bilateral knee osteoarthritis in this patient is unchanged from usual. No skin rashes. His only injury is bruising of his right lateral hand from punching or hitting objects the last 2 days. Vital signs unremarkable CBC, CMP, UA unremarkable EKG yesterday with RBBB Head CT today with no acute changes. Prominent atrophy especially parietal lobes consistent with Alzheimer's dementia. Medlist is pretty clean, does include lorazepam 0.5 mg tid prn agitation, seroquel 50 mg bid Allergies Allergy/AdvReac Type Severity Reaction Status Date / Time codeine AdvReac NOSEBLEED Verified 03/10/25 16:55 Home Medications Medication Instructions Recorded Confirmed Type cholecalciferol (vitamin D3) 50 50 mcg PO DAILY 12/22/20 03/10/25 History mcg (2,000 unit) capsule mecobalamin (vitamin B12) 1,000 1,000 mcg PO DAILY 02/01/23 03/10/25 History mcg chewable tablet multivitamin 1 tab PO DAILY 07/04/24 03/10/25 History simvastatin 40 mg tablet 40 mg PO DAILY #90 tabs 09/14/24 03/10/25 Rx allopurinol 100 mg tablet 200 mg (2 x 100 mg) PO DAILY #180 10/26/24 03/10/25 Rx tabs tamsulosin 0.4 mg capsule 0.4 mg PO HS #90 caps 10/26/24 03/10/25 Rx melatonin 3 mg tablet 3 mg PO HS PRN sleep #30 tabs 01/16/25 03/10/25 Rx olanzapine 2.5 mg tablet 2.5 mg PO BID PRN behavioral 01/16/25 03/10/25 Rx emergencies #5 tabs polyethylene glycol 3350 17 gram 17 g PO DAILY PRN constipation #14 01/16/25 03/10/25 Rx oral powder packet (Miralax) ea Saccharomyces boulardii 250 mg 250 mg PO DAILY 03/10/25 03/10/25 History capsule (Florastor) lactase 3,000 unit tablet (Lactaid) 3,000 unit PO QID PRN dairy 03/10/25 03/10/25 History containing food lorazepam 0.5 mg tablet 0.5 mg PO Q8 PRN Agitation 03/10/25 03/10/25 History quetiapine 50 mg tablet 50 mg PO AMHS 03/10/25 03/10/25 History Past Med/Surg History Problem List Dementia with behavioral disturbance Dementia (Acute) Hypotension Delirium due to multiple etiologies Sundowning Altered mental status (Acute) Mild cognitive impairment B12 deficiency Trochanteric bursitis of right hip Right knee DJD Hip arthritis Vitamin D deficiency Subdural hygroma Chronic anemia CKD (chronic kidney disease), stage III History of inguinal herniorrhaphy Arthritis, multiple joint involvement (Chronic) Hypertension (Chronic) Obstructive sleep apnea, adult (Chronic) Elevated PSA (Chronic) Dyslipidemia (Chronic) Enlarged prostate without lower urinary tract symptoms (luts) (Chronic) Low HDL (under 40) (Chronic) Medical History COVID-19 Combative behavior Acute confusion Incarcerated right inguinal hernia Surgical History H/O oral surgery S/P knee surgery Left knee-1983 S/P hernia repair 1982-Inguinal hernia Family History Mother Brain tumor Hypertension Father Lymphoma Denies family history of Ovarian cancer Prostate cancer Myocardial infarction Breast cancer Colorectal cancer Social History Smoking Status: Former smoker Age Started Using Tobacco: 18; Age Quit Using Tobacco: 39; Cigarettes Per Day: 6-10; Second Hand Exposure: No; Do You Dip or Chew Tobacco: No; Hx Alcohol Use: Yes Alcohol type: beer Alcohol Intake Frequency: Monthly or Less Hx Substance Use: No Preferred Language: Upper Sorbian Communication Ability: Impaired Visual Impairment: No Limitations Hearing Ability: Use of Hearing Aid 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 Required: No Beliefs That Will Affect Care: None marital status: Current Living Situation: Spouse current occupational status: retired Feels Safe at Home: Yes Childhood Exposure to Second-Hand Smoke: Yes Diet: regular Diet Comment: regular caffeine: Yes (Coffee x 3-4 per day.) during the past year weight has: decreased > 10 lbs Dental Care, Regularly: No Physical Activity Frequency: 1-2 Times per Week Seatbelt Use: always Sunscreen Use: No Assistive Devices: None Review of Systems 2 Review of Systems: All systems reviewed & are unremarkable except as noted in HPI & below Physical Exam 2 Physical Exam: Last 24h vitals reviewed GEN: no acute distress, sitting in bed, well-appearing HEENT: pupils equal, sclerae anicteric, moist MM RESP: normal WOB, CTAB CV: reg no mrg ABD: soft/nt/nd +BT. no suprapubic tenderness : no reina SKIN: warm and dry, no rashes extremities: Warm and well-perfused, no lower extremity edema. He has some relatively mild bruising of his right lateral hand overlying the fifth metacarpal and MCP, there is no deformity it is not tender to palpation and he has good range of motion of his fingers and his wrist without pain. No other apparent injuries NEURO: AOx person, and to his but does not seem to recognize his daughter. Not oriented to place or situation. Very forgetful and makes repetitive statements or questions. Face symmetric, EOMI, tongue midline,speech normal, strength is 5 out of 5 bilateral upper extremities and lower extremities. He has full [id number] , flexion/ extension range of motion at his neck without any pain or tenderness. Results & Data Results & Data Vital Signs (Past 12 Hours) Vital Signs Temp Pulse Resp BP Pulse Ox O2 Del Method 03/10/25 16:00 70 19 126/67 96 Room Air 03/10/25 15:19 87 03/10/25 14:58 36.8 C 89 20 136/71 95 Room Air Laboratory Results 03/10/25 16:16 03/10/25 16:16 anemia a little worse than December and stable overnight coags normal LFT normal yesterday TSH 0.964 Neg UA, neg UDS B12, folate, TSH, Vit D normal 11/2024 ECG Additional Comments: personally reviewed EKG tracing shows sinus, RBBB, QTc 453 PG Care Time/CCT Total # of Minutes Spent Total Time Spent with Patient: Total time spent is greater than 50% in coordination of care (as documented) at patient's floor/unit and/or counseling patient: Coding Level of Care Code 75434 INT INP/OBS CARE MIN Diagnoses Dementia with behavioral disturbance F03.918 Stage 3a chronic kidney disease N18.31 Chronic kidney disease stage 3 subtype: stage 3a (GFR 45-59) Primary hypertension I10 Hypertension type: primary hypertension Obstructive sleep apnea, adult G47.33 Enlarged prostate without lower urinary tract symptoms (luts) N40.0 (2) CKD (chronic kidney disease), stage III Chronic kidney disease stage 3 subtype: stage 3a (GFR 45-59) Qualified Code(s): N18.31 - Chronic kidney disease, stage 3a (3) Hypertension Hypertension type: primary hypertension Qualified Code(s): I10 - Essential (primary) hypertension
[2025-03-10 19:20] LABS: Reticulocyte % 1.92 % (0.50-2.00)
[2025-03-10 19:43] LABS: Ferritin 91.6 ng/ml (8-388)
[2025-03-10] MEDS: QUEtiapine FUMARATE 25 MG TABLET PO STA (21:31)
[2025-03-10] MEDS ORDERED: ALUMINUM/MAGNESIUM SUSP 30 ML UDC PO PRN (22:34)
[2025-03-10] MEDS ORDERED: POLYETHYLENE (MIRALAX) 17 GM PACK PO PRN (22:34)
[2025-03-10] MEDS ORDERED: LACTASE 3000 UNIT TAB PO PRN (22:34)
[2025-03-10] MEDS ORDERED: ONDANSETRON INJ 2 MG/ML 2 ML VIAL IV PRN (22:34)
[2025-03-10] MEDS ORDERED: MAGNESIUM HYDROXIDE SUSP 30 ML UDC PO PRN (22:34)
[2025-03-10] MEDS: TAMSULOSIN HCL 0.4 MG CAP PO SCH (23:37)
[2025-03-11] MEDS: LORazepam 0.5 MG TAB PO PRN (08:53)
[2025-03-11] MEDS: QUEtiapine FUMARATE 25 MG TABLET PO SCH (08:55)
[2025-03-11] MEDS: OLANZapine 10 MG/2.1 ML SDV IM PRN (08:57)
[2025-03-11] MEDS: CHOLECALCIFEROL 25 MCG (1000 UNITS) TAB PO SCH (09:06)
[2025-03-11] MEDS: allopurinoL 100 MG TAB PO SCH (09:06)
[2025-03-11] MEDS: CYANOCOBALAMIN (B-12) 500 MCG TABLET PO SCH (09:07)
[2025-03-11] MEDS: SIMVASTATIN 40 MG TAB PO SCH (09:07)
[2025-03-11] MEDS: MULTIVITAMIN TAB PO SCH (09:08)
[2025-03-11] MEDS: OLANZapine 10 MG/2.1 ML SDV IM STA (11:20)
[2025-03-11] MEDS: diphenhydrAMINE 50 MG/ML VIAL IV ONE (12:28)
--- NOTE | 2025-03-11 14:40 | Psychiatric Consultation ---
Date of Consultation March 11, 2025 Impression / Recommendations Impression 80 y/o M h/o dementia, B12 def, CKD stage III, HTN, LORRIE, dyslipidemia, chronic anemia presents with AMS with combative behavior. Patient was doing well until recently when he became combative at his facility ([facility]) and was refusing medications. Psychiatry consulted for medication recommendations. May benefit from initiation of antidepressant for improved emotional regulation. Schedule Olanzapine for behaviors. Slept well overnight. Overall, I spent a total of 80 minutes with this case including review of chart records, nursing report, review of lab work, direct evaluation of the patient at bedside, counseling the patient, discussion of the patient with the hospitalist provider, discussion with the psychiatric liaison during clinical rounds, and documentation in the electronic health record. (1) Combative behavior: (2) Dementia with behavioral disturbance: (3) Left flank pain: Plan Escitalopram 5mg daily Stop Quetiapine Olanzapine 2.5mg PO QAM, Olanzapine 5mg PO QPM Avoid benzodiazepines For behavioral emergencies: Olanzapine 5mg PO/IM BID PRN Repeat EKG -Continue medical workup to rule out and treat any underlying causes con tributing to potential delirium including correction of electrolyte abnormalities and infectious causes, avoid or limit use of deliriogenic medications (benzodiazepines, opioids, anticholinergics) -Continue with delirium prevention measures: raising blinds during the day, closing at night, frequent re-orientation, contact with family/friends, explaining procedures/nursing care measures prior to physical contact, correct any hearing and visual impairments Psych History Identifying Data 80 y/o M h/o dementia, B12 def, CKD stage III, HTN, LORRIE, dyslipidemia, chronic anemia presents with AMS with combative behavior. Patient was doing well until recently when he became combative at his facility ([facility]) and was r efusing medications. Psychiatry consulted for medication recommendations. Chief Complaint AMS, combative History of Present Illness Chart review: Overnight pt slept 6+ hours. Was placed on Quetiapine 50mg BID and Lorazepam 0.5mg TID PRN outpatient. On interview patient appears frustrated about soft restraints. AO to self only. Believes it is "1990 something". Cannot state location. Reports being from [place] and was planning to go to the [place] and then wanted a tour. Reports left flank pain. This AM received Olanzapine 5mg with partial effect and then patient decompensated after and required additional 5mg IM. Then took AM medications willingly. Allergies Allergy/AdvReac Type Severity Reaction Status Date / Time codeine AdvReac NOSEBLEED Verified 03/10/25 16:55 Home Medications Medication Instructions Recorded Confirmed Type cholecalciferol (vitamin D3) 50 50 mcg PO DAILY 12/22/20 03/10/25 History mcg (2,000 unit) capsule mecobalamin (vitamin B12) 1,000 1,000 mcg PO DAILY 02/01/23 03/10/25 History mcg chewable tablet multivitamin 1 tab PO DAILY 07/04/24 03/10/25 History simvastatin 40 mg tablet 40 mg PO DAILY #90 tabs 09/14/24 03/10/25 Rx allopurinol 100 mg tablet 200 mg (2 x 100 mg) PO DAILY #180 10/26/24 03/10/25 Rx tabs tamsulosin 0.4 mg capsule 0.4 mg PO HS #90 caps 10/26/24 03/10/25 Rx melatonin 3 mg tablet 3 mg PO HS PRN sleep #30 tabs 01/16/25 03/10/25 Rx olanzapine 2.5 mg tablet 2.5 mg PO BID PRN behavioral 01/16/25 03/10/25 Rx emergencies #5 tabs polyethylene glycol 3350 17 gram 17 g PO DAILY PRN constipation #14 01/16/25 03/10/25 Rx oral powder packet (Miralax) ea Saccharomyces boulardii 250 mg 250 mg PO DAILY 03/10/25 03/10/25 History capsule (Florastor) lactase 3,000 unit tablet (Lactaid) 3,000 unit PO QID PRN dairy 03/10/25 03/10/25 History containing food lorazepam 0.5 mg tablet 0.5 mg PO Q8 PRN Agitation 03/10/25 03/10/25 History quetiapine 50 mg tablet 50 mg PO AMHS 03/10/25 03/10/25 History Patient History Medical History COVID-19 Combative behavior Acute confusion Incarcerated right inguinal hernia Surgical History H/O oral surgery S/P knee surgery Left knee-1983 S/P hernia repair 1983-Inguinal hernia Family History Mother Brain tumor Hypertension Father Lymphoma Denies family history of Ovarian cancer Prostate cancer Myocardial infarction Breast cancer Colorectal cancer Social History Smoking Status: Never smoker Age Started Using Tobacco: 18; Age Quit Using Tobacco: 39; Cigarettes Per Day: 6-10; Second Hand Exposure: No; Do You Dip or Chew Tobacco: No; Hx Alcohol Use: No Hx Substance Use: No Preferred Language: Urdu Communication Ability: Impaired Visual Impairment: No Limitations Hearing Ability: Use of Hearing Aid Housekeeping Department Worker Required: No Beliefs That Will Affect Care: None marital status: Current Living Situation: Senior Living current occupational status: retired Other Information That Helps Us Care for You: No Feels Safe at Home: Yes Safety Concerns: Feels Safe At This Time Childhood Exposure to Second-Hand Smoke: Yes Diet: regular Diet Comment: regular caffeine: Yes (Coffee x 3-4 per day.) during the past year weight has: decreased > 10 lbs Dental Care, Regularly: No Physical Activity Frequency: 1-2 Times per Week Seatbelt Use: always Sunscreen Use: No Assistive Devices: None Physical Exam Mental Examination: Appearance: Disheveled Eye Contact: Maintains Eye Contact Motor Behavior: Unremarkable Speech: Tangential and Rambling Mood: Irritable Affect: Congruent Thought Process: Disorganized Thought Content: Disoriented Hallucinations: None Insight: Poor Judgement: Poor Vital Signs (Past 24 Hours): Last Vital Signs Temp 36.8 C 03/11/25 11:40 Pulse 92 H 03/11/25 11:40 Resp 24 03/11/25 11:40 BP 162/86 H 03/11/25 11:40 Pulse Ox 96 03/11/25 11:40 O2 Del Method Room Air 03/11/25 11:40 Results & Data (PSY) Medications Administered Allopurinol (Allopurinol 100 Mg Tab) 200 mg PO DAILY JOEY Stop: 04/10/25 08:59 Last Admin: 03/11/25 09:06 Dose: 200 mg Documented By: VGS Cyanocobalamin (Cyanocobalamin (B-12) 500 Mcg Tablet) 1,000 mcg PO DAILY JOEY Stop: 04/10/25 08:59 Last Admin: 03/11/25 09:07 Dose: 1,000 mcg Documented By: ALO Lorazepam (Lorazepam 0.5 Mg Tab) 0.5 mg PO Q8 PRN PRN Reason: Agitation Stop: 04/09/25 22:33 Last Admin: 03/11/25 11:49 Dose: 0.5 mg Documented By: ALO Multivitamins (Multivitamin Tab) 1 tab PO DAILY JOEY Stop: 04/10/25 08:59 Last Admin: 03/11/25 09:08 Dose: 1 tab Documented By: ALO Olanzapine (Olanzapine 10 Mg/2.1 Ml Sdv) 5 mg IM BID PRN PRN Reason: severe agitation or refusal of bid seroquel/olanzapine ODT Stop: 04/09/25 20:59 Last Admin: 03/11/25 08:57 Dose: 5 mg Documented By: ALO Quetiapine Fumarate (Quetiapine Fumarate 25 Mg Tablet) 50 mg PO QAM JOEY Stop: 04/10/25 08:59 Last Admin: 03/11/25 09:45 Dose: 50 mg Documented By: ALO Simvastatin (Simvastatin 40 Mg Tab) 40 mg PO DAILY JOEY Stop: 04/10/25 08:59 Last Admin: 03/11/25 09:07 Dose: 40 mg Documented By: ALO Tamsulosin HCl (Tamsulosin Hcl 0.4 Mg Cap) 0.4 mg PO HS JOEY Stop: 04/09/25 22:59 Last Admin: 03/10/25 23:37 Dose: Not Given Documented By: SARAH Vitamin D (Cholecalciferol 25 Mcg (1000 Units) Tab) 50 mcg PO DAILY JOEY Stop: 04/10/25 08:59 Last Admin: 03/11/25 09:06 Dose: 50 mcg Documented By: ALO [place] [address] IN/OBS CONSULT LVL 5,80M Patient Type New History Detailed Exam Detailed Medical Decision Making Moderate Complexity Diagnoses Combative behavior R46.89 Dementia with behavioral disturbance F03.918 Left flank pain R10.9
[2025-03-11] MEDS: LORazepam 2 MG/1 ML VIAL IV STA (15:48)
--- NOTE | 2025-03-11 18:53 | Hospitalist Progress Note ---
Date of Service March 11, 2025 Assessment & Plan (1) Dementia with behavioral disturbance: (2) CKD (chronic kidney disease), stage III: (3) Hypertension: (4) Obstructive sleep apnea, adult: (5) Enlarged prostate without lower urinary tract symptoms (luts): Plan 80 y/o man with dementia, admitted with behavioral disturbance. Last few days has been having aggressive behavior. ED evaluations 03/09 and 03/10 did not identify any acute issues such as infection or metabolic disturbance. # Dementia with behavioral disturbance Head CT with atrophy pattern c/w Alzheimer's dementia. No acute changes. UA negative. Labs unremarkable. Reviewed medlist. no symptoms of acute illness and no signs on physical examination. he has no headache or meningismus, no evidence of infection including UTI, no recent medication changes, no environment changes, no evidence of stroke or acute encephalopathy on exam and he is at his baseline mental status. Similar admission 12/2024 led to placement at [facility]. Unclear what triggered this agitation episode, exacerbated by refusing his medications today. Seems to need medication adjustment, his is open to that. - today I had to order olanzapine IM 5 mg x 2 doses and very small dose of IV lorazepam because of severe agitation combativeness and safety of the patient and staff - consulted psychiatry, reviewed recommendations and note - stop Seroquel replaced with olanzapine 2.5 mg p.o. in a.m. and 5 mg p.o. in at bedtime - olanzapine 5 mg IM/ODT as needed for behavioral emergency - agree avoid benzodiazepines however was inevitable today - currently requiring wrist restraints for safety monitor for any signs or symptoms of other acute illnesses and evaluate appropriate monitor QTc, currently acceptable # Anemia - stable acutely but Hg declined from 13-14-->12 since December - iron panel reviewed he has adequate iron stores # CKD stage 3 - stable, avoid nephrotoxins # BPH, elevated PSA - continue Flomax # LORRIE - CPAP PT/OT DVT ppx - start enoxaparin I updated his and his son at bedside 03/11 Admission and Anticipated Discharge Date Admission Date: March 11, 2025 Subjective refused a.m. Seroquel, extremely combative today despite olanzapine 5 mg IM x 2 doses, required 0.25 IV lorazepam was kicking at and hitting male nursing staff, eventually required wrist restraints for safety of patient and staff seen again in the afternoon he is a little bit sleepy his is at the bedside and he is much calmer when she is present Physical Exam 2 Physical Exam: Last 24h vitals reviewed GEN: awake alert mildly agitated HEENT: pupils equal, sclerae anicteric, moist MM RESP: normal WOB, CTAB CV: reg no mrg ABD: soft/nt/nd +BT. : no reina SKIN: warm and dry, no rashes bruising right lateral hand unchanged NEURO: AOx person, not to situation has been severely agitated and combative, currently only mildly agitated though is in restraints constantly pulling at them not redirectable, essentially no short-term memory Results & Data Results & Data Vital Signs (Past 12 Hours) Vital Signs Temp Pulse Resp BP Pulse Ox O2 Del Method 03/11/25 11:40 36.8 C 92 H 24 162/86 H 96 Room Air 03/11/25 07:55 36.5 C 52 L 16 163/70 H 95 Room Air Laboratory Results 03/10/25 16:16 03/10/25 16:16 PG Care Time/CCT Total # of Minutes Spent Total Time Spent with Patient: Total time spent is greater than 50% in coordination of care (as documented) at patient's floor/unit and/or counseling patient: Coding Level of Care Code 18381 SUB INP/OBS CARE 3/50MIN Diagnoses Dementia with behavioral disturbance F03.918 Stage 3a chronic kidney disease N18.31 Chronic kidney disease stage 3 subtype: stage 3a (GFR 45-59) Primary hypertension I10 Hypertension type: primary hypertension Obstructive sleep apnea, adult G47.33 Enlarged prostate without lower urinary tract symptoms (luts) N40.0 (2) CKD (chronic kidney disease), stage III Chronic kidney disease stage 3 subtype: stage 3a (GFR 45-59) Qualified Code(s): N18.31 - Chronic kidney disease, stage 3a (3) Hypertension Hypertension type: primary hypertension Qualified Code(s): I10 - Essential (primary) hypertension
[2025-03-11] MEDS: OLANZapine ZYDIS 5 MG ORALLY DIS. TAB PO SCH (19:26)
[2025-03-11] MEDS: MELATONIN 3 MG TAB PO PRN (19:26)
[2025-03-11] MEDS ORDERED: QUEtiapine FUMARATE 25 MG TABLET PO SCH (21:00)
[2025-03-12] MEDS: ENOXAPARIN INJ 40 MG/0.4 ML SYR SQ SCH (08:54)
[2025-03-12] MEDS: OLANZapine ZYDIS 5 MG ORALLY DIS. TAB PO SCH (08:55)
[2025-03-12] MEDS: ESCITALOPRAM OXALATE 10 MG TAB PO SCH (08:55)
--- NOTE | 2025-03-12 10:32 | Hospitalist Progress Note ---
Date of Service March 12, 2025 Assessment & Plan (1) Dementia with behavioral disturbance: (2) CKD (chronic kidney disease), stage III: (3) Hypertension: (4) Obstructive sleep apnea, adult: (5) Enlarged prostate without lower urinary tract symptoms (luts): Plan 80 y/o man with dementia, admitted with behavioral disturbance. Last few days has been having aggressive behavior. ED evaluations 03/09 and 03/10 did not identify any acute issues such as infection or metabolic disturbance. No recent med changes, signs of infections. # Dementia with behavioral disturbance Head CT with atrophy pattern c/w Alzheimer's dementia. No acute changes. UA negative. Similar admission 12/2024 led to placement at [facility] Psych consulted - seroquel stopped, lexapro 5mg started, scheduled olanzapine 2.5mg QAM, 5mg QPM Behavioral emergencies: Olanzapine 5mg PO/IM BID PRN Restraints removed this AM, but 1:[address] Has Ativan q8H prn at home - will try to wean off this. Qtc 470 on 03/10 Will add scheduled tylenol 500mg BID in event his pain is contributing to his agitation Supportive care: reorientation, encourage ambulation in halls # Anemia - stable acutely but Hg declined from 13-14-->12 since December - iron panel Reviewed he has adequate iron stores # CKD stage 3 - stable, avoid nephrotoxins # BPH, elevated PSA - continue Flomax # LORRIE - CPAP PT/OT DVT ppx - start enoxaparin and his son updated at bedside 03/11 LM for 03/12 Admission and Anticipated Discharge Date Admission Date: March 11, 2025 Subjective Patient seen lying in bed - pleasant, but only oreinted to self. Restraints removed this morning and RN Reports that he walked in the [place]. Denies pain, but 1:1 reports he was reporting rib pain this morning - when asked again Selvin reports pains all over when he wakes up Review of Systems Review of Systems: All systems reviewed & are unremarkable except as noted in Subjective Physical Exam Physical Exam: General: NAD, VS as above, lying in bed, pleasant Resp: normal respiratory effort, lungs clear to auscultation CV: RRR, no murmur, Abd: normal bowel sounds, soft Extremities: Moves all extremities, no edema Neuro: A&O x1, Results & Data Results & Data Vital Signs (Past 12 Hours) Vital Signs Temp Pulse Resp BP Pulse Ox O2 Del Method 03/12/25 08:01 98.1 F 79 14 161/76 H 95 Room Air PG Care Time/CCT Total # of Minutes Spent Total Time Spent with Patient: Total time spent is greater than 50% in coordination of care (as documented) at patient's floor/unit and/or counseling patient: Coding Level of Care Code 13685 SUB INP/OBS CARE 2/35MIN Diagnoses Dementia with behavioral disturbance F03.918 Stage 3a chronic kidney disease N18.31 Chronic kidney disease stage 3 subtype: stage 3a (GFR 45-59) Primary hypertension I10 Hypertension type: primary hypertension Obstructive sleep apnea, adult G47.33 Enlarged prostate without lower urinary tract symptoms (luts) N40.0 (2) CKD (chronic kidney disease), stage III Chronic kidney disease stage 3 subtype: stage 3a (GFR 45-59) Qualified Code(s): N18.31 - Chronic kidney disease, stage 3a (3) Hypertension Hypertension type: primary hypertension Qualified Code(s): I10 - Essential (primary) hypertension
[2025-03-12] MEDS: ACETAMINOPHEN 500 MG TAB PO SCH (20:01)
[2025-03-12] MEDS: ACETAMINOPHEN 500 MG TAB ONE (20:03)
--- NOTE | 2025-03-13 10:17 | Hospitalist Progress Note ---
Date of Service March 13, 2025 Assessment & Plan (1) Dementia with behavioral disturbance: (2) CKD (chronic kidney disease), stage III: (3) Hypertension: (4) Obstructive sleep apnea, adult: (5) Enlarged prostate without lower urinary tract symptoms (luts): Plan 80 y/o man with dementia, admitted with behavioral disturbance. Last few days has been having aggressive behavior. ED evaluations 03/09 and 03/10 did not identify any acute issues such as infection or metabolic disturbance. No recent med changes, signs of infections. # Dementia with behavioral disturbance Head CT with atrophy pattern c/w Alzheimer's dementia. No acute changes. UA negative. Similar admission 12/2024 led to placement at [facility] Psych consulted - seroquel stopped, lexapro 5mg started, scheduled olanzapine 2.5mg QAM, 5mg QPM Behavioral emergencies: Olanzapine 5mg PO/IM BID PRN Restraints removed 03/12 AM and sitter changed to Q15 checks this afternoon Has Ativan q8H prn at home - so far has required 2 total doses Qtc 470 on 03/10 Supportive care: reorientation, encourage ambulation in halls #Left sided rib fractures Unclear how this occured - family denies known falls at [facility] xray with fx of left seventh, eigth and ninth scheduled tylenol with additional prn, lidocaine patch, IS # Anemia - stable acutely but Hg declined from 13-14-->12 since December - iron panel Reviewed he has adequate iron stores # CKD stage 3 - stable, avoid nephrotoxins # BPH, elevated PSA - continue Flomax # LORRIE - CPAP DVT ppx: enoxaparin and his son updated at bedside 03/11 LM for 03/12 & 03/13 son updated by phone 03/13 Admission and Anticipated Discharge Date Admission Date: March 11, 2025 Subjective Patient lying in bed sleeping - but awakens easily reporting rib pain - when asked if he feel he responds "yes into someones fist" did not eat breakfast Discussed with bedside sitter - has not been combative Physical Exam Physical Exam: General: NAD, VS as above, lying in bed, pleasant chest: normal respiratory effort, reproducable tenderness with paplation to the left lower ribs Abd: soft, nontender Extremities: Moves all extremities, Neuro: A&O x1, Results & Data Results & Data Vital Signs (Past 12 Hours) Vital Signs Temp Pulse Resp BP Pulse Ox O2 Del Method 03/13/25 09:29 98.2 F 78 16 120/63 93 Room Air Diagnostic Findings chest xray reviewed PG Care Time/CCT Total # of Minutes Spent Total Time Spent with Patient: Total time spent is greater than 50% in coordination of care (as documented) at patient's floor/unit and/or counseling patient: Coding Level of Care Code 91282 SUB INP/OBS CARE 2/35MIN Diagnoses Dementia with behavioral disturbance F03.918 Stage 3a chronic kidney disease N18.31 Chronic kidney disease stage 3 subtype: stage 3a (GFR 45-59) Primary hypertension I10 Hypertension type: primary hypertension Obstructive sleep apnea, adult G47.33 Enlarged prostate without lower urinary tract symptoms (luts) N40.0 (2) CKD (chronic kidney disease), stage III Chronic kidney disease stage 3 subtype: stage 3a (GFR 45-59) Qualified Code(s): N18.31 - Chronic kidney disease, stage 3a (3) Hypertension Hypertension type: primary hypertension Qualified Code(s): I10 - Essential (primary) hypertension
--- NOTE | 2025-03-13 11:26 | XRay Report ---
XR ribs LT min 2V w CXR1V CLINICAL HISTORY: pain, r/o fracture COMPARISON: 12/28/2024 FINDINGS: Heart size and pulmonary vasculature are normal. There is stable mild elevation of the rig ht hemidiaphragm. No consolidation or pleural effusion. No pneumothorax. There are acute nondisplaced fractures anteriorly at the left seventh, eighth and ninth ribs. IMPRESSION: Multiple anterior left mid rib fractures with no pneumothorax. ACT 112: Negative or not required by law. Electronically signed by: Steve Sosa M.D. 03/13/2025 11:24 AM
[2025-03-13] MEDS: ACETAMINOPHEN 325 MG TAB PO PRN (12:11)
[2025-03-13] MEDS: LIDOCAINE 5% 1 PATCH TD SCH (13:23)
[2025-03-13] MEDS: OLANZapine 5 MG TABLET PO STA (15:29)
--- NOTE | 2025-03-14 10:22 | Hospitalist Progress Note ---
Date of Service March 14, 2025 Assessment & Plan (1) Dementia with behavioral disturbance: (2) CKD (chronic kidney disease), stage III: (3) Hypertension: (4) Obstructive sleep apnea, adult: (5) Enlarged prostate without lower urinary tract symptoms (luts): Plan 80 y/o man with dementia, admitted with behavioral disturbance. Last few days has been having aggressive behavior. ED evaluations 03/09 and 03/10 did not identify any acute issues such as infection or metabolic disturbance. No recent med changes, signs of infections. # Dementia with behavioral disturbance Head CT with atrophy pattern c/w Alzheimer's dementia. No acute changes. UA negative. Similar admission 12/2024 led to placement at [facility] Psych consulted - seroquel stopped, lexapro 5mg started, scheduled olanzapine 2.5mg QAM, 5mg QPM Behavioral emergencies: Olanzapine 5mg PO/IM BID PRN Restraints removed 03/12 AM and sitter changed to Q15 checks this afternoon Has Ativan q8H prn at home - so far has required 3 total doses, will switch to BID prn Qtc 470 on 03/10 Supportive care: reorientation, encourage ambulation in halls #Left sided rib fractures Unclear how this occured - family denies known falls at [facility] xray with fx of left seventh, eigth and ninth scheduled tylenol with additional prn, lidocaine patch, IS # Anemia - stable acutely but Hg declined from 13-14-->12 since December - iron panel Reviewed he has adequate iron stores # CKD stage 3 - stable, avoid nephrotoxins # BPH, elevated PSA - continue Flomax # LORRIE - CPAP DVT ppx: enoxaparin and his son updated at bedside 03/11 LM for 03/12 & 03/13 son updated by phone 03/13 Admission and Anticipated Discharge Date Admission Date: March 11, 2025 Subjective patient seen lying in bed, resting, does awaken denies pain Review of Systems Review of Systems: All systems reviewed & are unremarkable except as noted in Subjective Physical Exam Physical Exam: General: NAD, VS as above, lying in bed, pleasant chest: normal respiratory effort, clear to asculation Abd: soft, nontender Extremities: Moves all extremities, Neuro: A&O x1, PG Care Time/CCT Total # of Minutes Spent Total Time Spent with Patient: Total time spent is greater than 50% in coordination of care (as documented) at patient's floor/unit and/or counseling patient: Coding Level of Care Code 74972 SUB INP/OBS CARE Diagnoses Dementia with behavioral disturbance F03.918 Stage 3a chronic kidney disease N18.31 Chronic kidney disease stage 3 subtype: stage 3a (GFR 45-59) Primary hypertension I10 Hypertension type: primary hypertension Obstructive sleep apnea, adult G47.33 Enlarged prostate without lower urinary tract symptoms (luts) N40.0 (2) CKD (chronic kidney disease), stage III Chronic kidney disease stage 3 subtype: stage 3a (GFR 45-59) Qualified Code(s): N18.31 - Chronic kidney disease, stage 3a (3) Hypertension Hypertension type: primary hypertension Qualified Code(s): I10 - Essential (primary) hypertension
[2025-03-15 08:55] VITALS: BP 135/75; PULSE 83; RESP 16; TEMP 97.7; O2SAT 95
--- NOTE | 2025-03-15 12:18 | Hospitalist Progress Note ---
Date of Service March 15, 2025 Assessment & Plan (1) Dementia with behavioral disturbance: (2) CKD (chronic kidney disease), stage III: (3) Hypertension: (4) Obstructive sleep apnea, adult: (5) Enlarged prostate without lower urinary tract symptoms (luts): Plan 80 y/o man with dementia, admitted with behavioral disturbance. Last few days has been having aggressive behavior. ED evaluations 03/09 and 03/10 did not identify any acute issues such as infection or metabolic disturbance. No recent med changes, signs of infections. # Dementia with behavioral disturbance Head CT with atrophy pattern c/w Alzheimer's dementia. No acute changes. UA negative. Similar admission 12/2024 led to placement at [facility] Psych consulted - seroquel stopped, lexapro 5mg started, scheduled olanzapine 2.5mg QAM, 5mg QPM Behavioral emergencies: Olanzapine 5mg PO/IM BID PRN - has not needed Restraints removed 03/12 AM and sitter changed to Q15 checks this afternoon Has Ativan q8H prn at home - so far has required 3 total doses, will switch to BID prn Qtc 470 on 03/10 Supportive care: reorientation, encourage ambulation in halls #Left sided rib fractures Unclear how this occured - family denies known falls at [facility] xray with fx of left seventh, eigth and ninth scheduled tylenol with additional prn, lidocaine patch, IS # Anemia - stable acutely but Hg declined from 13-14-->12 since December - iron panel Reviewed he has adequate iron stores # CKD stage 3 - stable, avoid nephrotoxins # BPH, elevated PSA - continue Flomax # LORRIE - CPAP DVT ppx: enoxaparin dispo: Awaiting to hear back from his personal-fdc and his son updated at bedside 03/11 LM for 03/12 & 03/13 son updated by phone 03/13 Admission and Anticipated Discharge Date Admission Date: March 11, 2025 Subjective lying in bed, reports his ribs are sore but denies pain. Did eat breakfast. No acute acute complaints, wanting to get out of here but is pleasant and cooperative Review of Systems Review of Systems: All systems reviewed & are unremarkable except as noted in Subjective Physical Exam 2 Physical Exam: General: NAD, VS as above, lying in bed, pleasant chest: normal respiratory effort, no accessory muscle use Abd: soft, nontender Extremities: Moves all extremities, Neuro: A&O x1, Results & Data Results & Data Vital Signs (Past 12 Hours) Vital Signs Temp Pulse Resp BP Pulse Ox O2 Del Method 03/15/25 08:54 97.7 F 83 16 135/75 95 Room Air PG Care Time/CCT Total # of Minutes Spent Total Time Spent with Patient: Total time spent is greater than 50% in coordination of care (as documented) at patient's floor/unit and/or counseling patient: Coding Level of Care Code None Diagnoses Dementia with behavioral disturbance F03.918 Stage 3a chronic kidney disease N18.31 Chronic kidney disease stage 3 subtype: stage 3a (GFR 45-59) Primary hypertension I10 Hypertension type: primary hypertension Obstructive sleep apnea, adult G47.33 Enlarged prostate without lower urinary tract symptoms (luts) N40.0 (2) CKD (chronic kidney disease), stage III Chronic kidney disease stage 3 subtype: stage 3a (GFR 45-59) Qualified Code(s): N18.31 - Chronic kidney disease, stage 3a (3) Hypertension Hypertension type: primary hypertension Qualified Code(s): I10 - Essential (primary) hypertension
[2025-03-15] MEDS: LORazepam 0.5 MG TAB PO PRN (15:00)
--- NOTE | 2025-03-15 16:00 | Discharge Summary ---
Discharge Summary Date of Service March 15, 2025 Principal Dx & Hospital Course #1 = Principal Diagnosis (1) Dementia with behavioral disturbance: (2) CKD (chronic kidney disease), stage III: (3) Hypertension: (4) Obstructive sleep apnea, adult: (5) Enlarged prostate without lower urinary tract symptoms (luts): Plan # Dementia with behavioral disturbance 80 y/o man with dementia, admitted with behavioral disturbance. Last few days has been having aggressive behavior. ED evaluations 03/09 and 03/10 did not identify any acute issues such as infection or metabolic disturbance. No recent med changes, signs of infections. Head CT with atrophy pattern c/w Alzheimer's dementia. Behaviors may have been related to pain from rib fractures, unsure when these occurred. Pain controlled with 500mg Tylenol BID and lidocaine patch. Psych consulted - seroquel stopped, lexapro 5mg started, scheduled olanzapine 2.5mg QAM, 5mg QPM - has done well with this. Recommend zyprexa 5mg PO for behavioral emergencies, but has not needed. Recommend supportive care and working to titrate off ativan outpatient. #Left sided rib fractures Unclear how this occured - family denies known falls at [facility] xray with fx of left seventh, eigth and ninth scheduled tylenol with additional prn, lidocaine patch, IS # Anemia - stable acutely but Hg declined from 13-14-->12 since December - iron panel Reviewed he has adequate iron stores # CKD stage 3- stable, avoid nephrotoxins # BPH, elevated PSA- continue Flomax # LORRIE - CPAP dispo: discharge back to [facility] today Notes For Next Care Provider attempt to wean off ativan Medication Changes From Visit lexapro 5mg qam zyprexa 2.5 mg qAM zyprexa 5mg HS Admission HPI Per Admitting Provider 80 y/o with dementia with behavioral disturbance. Discharged from here late December for same issues at home but significantly improved after medication adjustments, placed at [facility]. Sent to ED yesterday for combative/aggressive behavior. ED evaluation negative for any acute medical problems. Send back in to ED today for the same . per [facility] documentation, ED triage and his at bedside he has been hitting del castillo and tables, kicked del castillo, refusing to take his meds. C/O right hand pain in the ED. His said he was angry because he was demanding his car keys and the staff did not have his keys, this was the same complaint he had in the past when he was angry at his before previous admission in December. Today he has refused his medications which made everything worse, however, she thinks he did take his medications yesterday. she says that the first 2-3 weeks at [facility] were pretty rough, the physician adjusted his Seroquel increasing it to 50 mg twice daily and low-dose as needed lorazepam was added for agitation. With these medication changes and adjustment to his new situation he has done extremely well until the last 48 hours. Usually the staff report he is one of the nicest residents and is cooperative. He has been eating very well and walking with PT and with a walker. There have been no falls and no acute medical issues since arrival at [facility]. She is not aware of any other medication changes and med list seems basically the same as previous discharge. He reports that he feels well, denies headache or head pain, no neck or back pain, no fevers, no shortness of breath or coughing, no chest pain, no abdominal pain, no nausea vomiting or diarrhea, no dysuria. He does have chronic bilateral knee osteoarthritis in this patient is unchanged from usual. No skin rashes. His only injury is bruising of his right lateral hand from punching or hitting objects the last 2 days. Vital signs unremarkable CBC, CMP, UA unremarkable EKG yesterday with RBBB Head CT today with no acute changes. Prominent atrophy especially parietal lobes consistent with Alzheimer's dementia. Medlist is pretty clean, does include lorazepam 0.5 mg tid prn agitation, seroquel 50 mg bid Discharge Exam General: NAD, VS as above, lying in bed, pleasant chest: normal respiratory effort, no accessory muscle use Abd: soft, nontender Extremities: Moves all extremities, Neuro: A&O x1, Discharge Plan Discharge Items Patient Disposition: Home - Self-Care Reason For Visit: DEMENTIA WITH BEHAVIORAL DISTURBANCE Discharge Diagnosis: Dementia Condition on Discharge: Fair Activity: Resume your previous activity Non-emergency contact: Primary Care Provider Call non-emergency contact if: you have any medication questions, your symptoms worsen and your temperature is above 101 Follow-up/Referrals: Len[facility] [Primary Care Provider] - Diet: Regular Addtl Attending Provider Instructions: Mr. Borrero You were hospitalized after worsening behaviors, thankfully these have been much improved with medication changes. Unfortunately, you were also found to have rib fractures - we have been using scheduled tylenol 500mg twice a day and more as needed and lidocaine patch as needed for pain. Dementia medication changes: Stop Seroquel Started lexapro 5mg daily zyprexa 2.5mg qAM zyprexa 5mg HS Pending Studies at Discharge: No Stand-Alone Forms: My [facility], Smoking Cessation Medications and DC Order Prescriptions: New olanzapine 5 mg Tablet,Disintegrating 5 mg PO HS Qty: 30 0RF olanzapine 5 mg Tablet,Disintegrating 2.5 mg PO QAM 30 Days Qty: 15 0RF escitalopram oxalate 10 mg Tablet 5 mg PO QAM Qty: 30 0RF acetaminophen [Tylenol Extra Strength] 500 mg Tablet 500 mg PO BID Qty: 60 0RF Continued simvastatin 40 mg tablet 40 mg PO DAILY Qty: 90 3RF allopurinol 100 mg tablet 200 mg PO DAILY Qty: 180 3RF tamsulosin 0.4 mg capsule 0.4 mg PO HS Qty: 90 3RF mecobalamin (vitamin B12) 1,000 mcg tablet,chewable 1,000 mcg PO DAILY cholecalciferol (vitamin D3) 50 mcg (2,000 unit) capsule 50 mcg PO DAILY multivitamin Tablet 1 tab PO DAILY melatonin 3 mg Tablet 3 mg PO HS PRN (Reason: sleep) Qty: 30 0RF polyethylene glycol 3350 [Miralax] 17 gram Powder In Packet 17 g PO DAILY PRN (Reason: constipation) Qty: 14 0RF olanzapine 2.5 mg Tablet 2.5 mg PO BID PRN (Reason: behavioral emergencies) Qty: 5 0RF Saccharomyces boulardii [Florastor] 250 mg Capsule 250 mg PO DAILY lorazepam 0.5 mg tablet 0.5 mg PO Q8 PRN (Reason: Agitation) lactase [Lactaid] 3,000 unit Tablet 3,000 unit PO QID PRN (Reason: dairy containing food) Discontinued quetiapine 50 mg tablet 50 mg PO AMHS Discharge Orders: Discharge Order (Routine); Ordered 03/15/25 Ordered By: Dorene Burkett Admission Data Admit Date/Time: 03/11/25 11:47 Attending Provider: Shantanu Ramirez Admit Provider: Kirsten Bennett Primary Care Provider: Lenka beckerSaltese Other Providers: Kirsten Bennett; Anna Baker; Steve Mustafa; Lorene Billingsley; Robyn Honeycutt; Gael James; Liseth Polanco Hospital Stay Data Consultations 03/10/25 17:12 ED Decision to Admit Stat 03/11/25 07:39 Consult Psychiatry Routine Diagnostic Imagining Performed Head CT 03/10/25 15:18 CT head without contrast History: AMS Comparison: 01/17/2025 Technique: Using multidetector thin collimation helical acquisition technique, axial, coronal and sagittal CT images from the skull base to the vertex were obtained without intravenous contrast. Dose reduction techniques were achieved by using automatic exposure control and/or adjustment of mA and/or kV according to patient size and/or use of iterative reconstruction technique. Findings: No intracranial hemorrhage, mass-effect, or midline shift. The ventricles are proportionate to the cerebral sulci. The osorio to white matter differentiation of the cerebral hemispheres is preserved. The basal cisterns are patent. There is marked generalized cerebral atrophy, which is conspicuously parietal lobe predominant. The visualized paranasal sinuses are clear. Mastoid air cells are clear. Impression: No acute intracranial pathology. There is marked cerebral atrophy which is conspicuously parietal lobe predominant, as may be seen with posterior cortical atrophy/Alzheimer's dementia. Electronically signed by Angel Valenzuela 03-10-2025 5:05 PM Ribs w/Chest X-Ray 03/13/25 10:14 XR ribs LT min 2V w CXR1V CLINICAL HISTORY: pain, r/o fracture COMPARISON: 12/28/2024 FINDINGS: Heart size and pulmonary vasculature are normal. There is stable mild elevation of the right hemidiaphragm. No consolidation or pleural effusion. No pneumothorax. There are acute nondisplaced fractures anteriorly at the left seventh, eighth and ninth ribs. IMPRESSION: Multiple anterior left mid rib fractures with no pneumothorax. ACT 112: Negative or not required by law. Electronically signed by: Steve Sosa M.D. 03/13/2025 11:24 AM Pending Results Patient Have Any Pending Studies at Discharge: No Discharge Instructions Given to Patient (Per Discharging Provider) Mr. Borrero You were hospitalized after worsening behaviors, thankfully these have been much improved with medication changes. Unfortunately, you were also found to have rib fractures - we have been using scheduled tylenol 500mg twice a day and more as needed and lidocaine patch as needed for pain. Dementia medication changes: Stop Seroquel Started lexapro 5mg daily zyprexa 2.5mg qAM zyprexa 5mg HS Total Time Total Time Spent Total Time Spent (In Minutes): Time spent day of discharge 32 minutes including direct patient care, medication reconciliation, documentation, review of labs and images, and coordination of care. case discussed with CM Coding Level of Care Code 38109 INP/OBS DISCH >30 MIN Diagnoses Dementia with behavioral disturbance F03.918 Stage 3a chronic kidney disease N18.31 Chronic kidney disease stage 3 subtype: stage 3a (GFR 45-59) Primary hypertension I10 Hypertension type: primary hypertension Obstructive sleep apnea, adult G47.33 Enlarged prostate without lower urinary tract symptoms (luts) N40.0
== END 2025-03-15 16:12 | disposition home or self-care (01) | DRG 884 ==
LOC: SUATTDRO → 3N 14:52 → ED 14:52 → 3N 21:45 → SUATTDRO 03-11 11:47

== ENCOUNTER 2025-05-08 10:09 | Observation (INO) ==
--- NOTE | 2025-05-08 10:42 | Emergency Department Note ---
Impression & Plan Recurrent falls, Elevated CK, Elevated troponin ED Provider Note HISTORY OF PRESENT ILLNESS: Patient is an 80-year-old male presenting after a fall. Patient was discharged back to his facility yesterday after having no traumatic injuries in the emergency department after being evaluated from a fall. He reportedly went back to his facility and had another fall this morning. Apparently it was witnessed by staff. Report from EMS states that he "buckled his knees and went forward." Patient denies striking his head. Patient has no complaints on arrival to the emergency department. Patient is not on any anticoagulation. ROS: as above PHYSICAL EXAM: Constitutional: Patient appears in no acute distress. HENT: Head: Normocephalic and atraumatic. Eyes: EOMI, PERRL Mouth/Throat: Mucous membranes moist. Neck: Trachea midline. Neck supple. Cardiovascular: RRR, No murmurs, rubs or gallops. Intact distal pulses. Pulmonary/Chest: No respiratory distress. Breath sounds clear and equal bilaterally. No wheezes or rales. Abdominal: Abdomen soft, no tenderness, rebound or guarding. Musculoskeletal: No edema, tenderness or deformity noted. Skin: Warm and dry. Abrasion to left outer elbow. Patient is able to fully flex and extend the elbow without any pain. Neurological: Alert. CN II-XII grossly intact, moving all extremities equally and fully. MDM: - Vitals signs stable - History obtained via EMS, given patient's dementia. History as above. - Chronic conditions affecting care: CKD; dementia; HLD - Differential diagnoses include, but are not limited to: UTI; pneumonia; intracranial hemorrhage; CVA - Order placed for continuous cardiac monitoring. At this time, monitor showed rate of 68 bpm with normal sinus rhythm, per my interpretation. - External medical records reviewed. Emergency room visit note from 05/07/2025 was reviewed. Patient was seen for reported altered mental status and an unwitnessed fall. He had no acute laboratory or imaging pathologies and was [facility] to his [facility] - EKG image interpreted by myself showed normal sinus rhythm. Rate 80 bpm. QT 404. No acute ischemic changes. Noted to have a right bundle branch block. - Laboratory workup interpreted by myself showed normal WBC; normal PT/INR; stable electrolytes elevated troponin (23.4); elevated CK (264); normal creatinine; normal TSH - UA negative for infection - CXR image reviewed by myself is negative for pneumonia. However, radiology is reporting a potential right basilar infiltrate which could be pneumonia. - Repeat troponin still slightly elevated at 21.8. - Discussion was had with immigration case worker about patient's case and need for admission - Hospitalist consulted for admission - [facility] for further evaluation and management. ASSESSMENT AND PLAN: Diagnosis: Recurrent falls; elevated CK; elevated troponin Plan: Discharge Past Med/Surg History Problem List (Updated 05/08/25 @ 14:26 by Nubia Brewster MD) Elevated troponin (Acute) Elevated CK (Acute) Recurrent falls (Acute) Dementia (Acute) Unwitnessed fall (Acute) Hypotension Delirium due to multiple etiologies Sundowning Mild cognitive impairment B12 deficiency Trochanteric bursitis of right hip Right knee DJD Hip arthritis Vitamin D deficiency Subdural hygroma Chronic anemia History of inguinal herniorrhaphy Arthritis, multiple joint involvement (Chronic) Elevated PSA (Chronic) Dyslipidemia (Chronic) Low HDL (under 40) (Chronic) Medical History Dementia CKD (chronic kidney disease), stage III Enlarged prostate without lower urinary tract symptoms (luts) Hypertension Obstructive sleep apnea, adult COVID-19 Combative behavior Acute confusion Incarcerated right inguinal hernia Surgical History H/O oral surgery S/P knee surgery Left knee-1983 S/P hernia repair 1982-Inguinal hernia Family History Mother Brain tumor Hypertension Father Lymphoma Denies family history of Ovarian cancer Prostate cancer Myocardial infarction Breast cancer Colorectal cancer Social History Smoking Status: Never smoker Age Started Using Tobacco: 18; Age Quit Using Tobacco: 39; Cigarettes Per Day: 6-10; Second Hand Exposure: No; Do You Dip or Chew Tobacco: No; Hx Alcohol Use: No Hx Substance Use: No Preferred Language: Greek Communication Ability: Impaired Visual Impairment: No Limitations Hearing Ability: Use of Hearing Aid Scratch Finisher Required: No Beliefs That Will Affect Care: None marital status: Current Living Situation: [facility] current occupational status: retired Feels Safe at Home: Yes Childhood Exposure to Second-Hand Smoke: Yes Diet: regular Diet Comment: regular caffeine: Yes (Coffee x 3-4 per day.) during the past year weight has: decreased > 10 lbs Dental Care, Regularly: No Physical Activity Frequency: 1-2 Times per Week Seatbelt Use: always Sunscreen Use: No Assistive Devices: None Allergies Allergies Allergy/AdvReac Type Severity Reaction Status Date / Time codeine AdvReac NOSEBLEED Verified 03/10/25 16:55 Home Meds Home Medications Medication Instructions Recorded Confirmed cholecalciferol (vitamin D3) 50 50 mcg PO DAILY 12/22/20 05/07/25 mcg (2,000 unit) capsule mecobalamin (vitamin B12) 1,000 1,000 mcg PO DAILY 02/01/23 05/07/25 mcg chewable tablet multivitamin 1 tab PO DAILY 07/04/24 05/07/25 Saccharomyces boulardii 250 mg 250 mg PO DAILY 03/10/25 05/07/25 capsule (Florastor) lactase 3,000 unit tablet (Lactaid) 3,000 unit PO QID PRN dairy 03/10/25 05/07/25 containing food lorazepam 0.5 mg tablet 0.5 mg PO Q8 PRN Agitation 03/10/25 05/07/25 melatonin 3 mg tablet 3 mg PO HS PRN Insomnia 05/07/25 05/07/25 olanzapine 2.5 mg tablet 5 mg PO QAM 05/07/25 05/07/25 olanzapine 2.5 mg tablet 7.5 mg PO HS 05/07/25 05/07/25 tramadol 50 mg tablet 25 mg PO BID 05/07/25 05/07/25 Previous Rx's Medication Instructions Recorded simvastatin 40 mg tablet 40 mg PO DAILY #90 tabs 09/14/24 allopurinol 100 mg tablet 200 mg (2 x 100 mg) PO DAILY #180 10/26/24 tabs tamsulosin 0.4 mg capsule 0.4 mg PO HS #90 caps 10/26/24 olanzapine 2.5 mg tablet 2.5 mg PO BID PRN behavioral 01/16/25 emergencies #5 tabs polyethylene glycol 3350 17 gram 17 g PO DAILY PRN constipation #14 01/16/25 oral powder packet (Miralax) ea acetaminophen 500 mg tablet 500 mg PO BID #60 tabs 03/15/25 (Tylenol Extra Strength) Results & Data (ED) Vital Signs Vital Signs - 24 hr 05/08/25 10:19 05/08/25 10:28 05/08/25 10:42 Temperature 37.4 C Temperature Source Oral Pulse Rate 92 H 86 83 Pulse Rhythm Regular Pulse Strength Normal Respiratory Rate 20 22 Respiratory Effort / Characteristics Non-Labored Spontaneous Respiratory Depth Normal Respiratory Pattern Regular Blood Pressure 149/67 H 141/75 H Blood Pressure Mean 94 97 Blood Pressure Position Semi-fowlers Pulse Oximetry 95 94 Oxygen Delivery Method Room Air Room Air Sepsis Recent Fever Within 48 Hours No Sepsis New/Unexplained Change in Mental Status No Sepsis Action Taken by Nursing No Action Required 05/08/25 11:04 05/08/25 11:30 05/08/25 12:36 Temperature Temperature Source Pulse Rate 77 66 Pulse Rhythm Pulse Strength Respiratory Rate 20 20 Respiratory Effort / Characteristics Respiratory Depth Respiratory Pattern Blood Pressure 129/69 Blood Pressure Mean 89 Blood Pressure Position Pulse Oximetry 95 94 96 Oxygen Delivery Method Room Air Room Air Room Air Sepsis Recent Fever Within 48 Hours Sepsis New/Unexplained Change in Mental Status Sepsis Action Taken by Nursing 05/08/25 13:06 05/08/25 14:21 Temperature Temperature Source Pulse Rate 68 63 Pulse Rhythm Pulse Strength Respiratory Rate 19 Respiratory Effort / Characteristics Respiratory Depth Respiratory Pattern Blood Pressure 129/67 Blood Pressure Mean 87 Blood Pressure Position Pulse Oximetry Oxygen Delivery Method Sepsis Recent Fever Within 48 Hours Sepsis New/Unexplained Change in Mental Status Sepsis Action Taken by Nursing Laboratory Data 05/08/25 10:57 05/08/25 10:57 Lab Results 05/08/25 05/08/25 05/08/25 Range/Units 10:57 12:00 12:49 WBC 6.86 (4.8-10.8) K/ul RBC 4.14 L (4.70-6.10) M/uL Hgb 13.4 L (14.0-18.0) g/dl Hct 40.2 L (42.0-52.0) % MCV 97.1 (80.0-100.0) fL MCH 32.4 (25.0-34.0) pg MCHC 33.3 (32.0-36.0) g/dL RDW Std Deviation 46.6 H (36.4-46.3) fL RDW Coeff of Maurice 13.0 (11.5-14.5) % Plt Count 126 L (130-400) K/uL MPV 11.6 (9.4-12.4) fL Immature Gran % (Auto) 0.3 % Neut % (Auto) 80.7 % Lymph % (Auto) 8.2 % Edmunds % (Auto) 8.5 % Eos % (Auto) 1.9 % Baso % (Auto) 0.4 % Neut # (Auto) 5.54 (1.40-6.50) K/uL Lymph # (Auto) 0.56 L (1.20-3.40) K/uL Edmunds # (Auto) 0.58 (0.11-0.59) K/uL Eos # (Auto) 0.13 (0.00-0.50) K/uL Baso # (Auto) 0.03 (0.00-0.20) K/uL Immature Gran # (Auto) 0.02 (0.01-0.20) K/uL PT 11.8 (9.0-12.0) Seconds INR 1.1 (0.9-1.1) Sodium 141 (136-145) mmol/L Potassium 3.6 (3.5-5.1) mmol/L Chloride 105 (98-107) mmol/L Carbon Dioxide 29 (21-32) mmol/L Anion Gap 7 (3-11) BUN 26 H (6-23) mg/dl Creatinine 0.95 (0.6-1.4) mg/dl Est Cr Clr Drug Dosing 62.0 ml/min eGFR 80.92 BUN/Creatinine Ratio 27.4 H (10-20) Glucose 94 (70-99(Fasting)) mg/dl Calcium 9.1 (8.6-10.3) mg/dl Magnesium 1.8 (1.7-2.4) mg/dl Total Bilirubin 0.9 (0.2-1.0) mg/dl AST 30 (13-39) U/L ALT 18 (7-52) U/L Alkaline Phosphatase 36 (34-104) U/L Total Creatine Kinase 264 H (30-223) U/L Troponin I High Sens 23.4 H 21.8 H (0-20) pg/ml Total Protein 7.5 (6.0-8.3) gm/dl Albumin 3.8 (3.4-5.0) gm/dl Globulin 3.7 (2.5-4.0) gm/dl Albumin/Globulin Ratio 1.0 (0.9-2) TSH 1.975 (0.300-4.500) uIu/ml Urine Color Dark Yellow Urine Appearance Clear (Clear) Urine pH 6.0 (4.5-7.5) Ur Specific [place] 1.028 (1.000-1.030) Urine Protein 1+ H (Negative) Urine Glucose (UA) Negative (Negative) Urine Ketones 1+ H (Negative) Urine Blood Negative (Negative) Urine Nitrite Negative (Negative) Urine Bilirubin Negative (Negative) Urine Urobilinogen Negative (Negative) Ur Leukocyte Esterase Negative (Negative) Urine WBC (Auto) 0-5 (0-5) /hpf Urine RBC (Auto) 0-2 (0-2) /hpf U Hyaline Cast (Auto) 0-2 (0-2) /lpf U Epithel Cells (Auto) 0-2 (0-2) /hpf Urine Bacteria (Auto) None Seen (None Seen) Urine Comment Imaging Data Radiologist's Impression: Chest X-Ray 05/08/25 10:41 XR chest 1V portable CLINICAL HISTORY: weakness COMPARISON STUDY: 05/07/2025 FINDINGS: Single view portable chest is unchanged. 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 There is some question of focal obscuration of the medial left hemidiaphragm with slight streaky increased density in the retrocardiac region suspicious for left basilar infiltrate. Heart size is slightly prominent with left ventricular prominence. Pulmonary vascularity is unremarkable. IMPRESSION: Small left basilar infiltrate could be pneumonia in the appropriate clinical context. ACT 112: Negative or not required by law. Electronically signed by: Sarah Chamberlain M.D. 05/08/2025 11:04 AM Discharge Plan Visit Data Chief Complaint: Fall ED Provider: Nubia Brewster Discharge Problem: Recurrent falls, Elevated CK, Elevated troponin Condition: Fair Forms Stand Alone Forms: [facility] Prescriptions Prescriptions: No Action simvastatin 40 mg tablet 40 mg PO DAILY Qty: 90 3RF allopurinol 100 mg tablet 200 mg PO DAILY Qty: 180 3RF tamsulosin 0.4 mg capsule 0.4 mg PO HS Qty: 90 3RF mecobalamin (vitamin B12) 1,000 mcg tablet,chewable 1,000 mcg PO DAILY cholecalciferol (vitamin D3) 50 mcg (2,000 unit) capsule 50 mcg PO DAILY multivitamin Tablet 1 tab PO DAILY polyethylene glycol 3350 [Miralax] 17 gram Powder In Packet 17 g PO DAILY PRN (Reason: constipation) Qty: 14 0RF olanzapine 2.5 mg Tablet 2.5 mg PO BID PRN (Reason: behavioral emergencies) Qty: 5 0RF Saccharomyces boulardii [Florastor] 250 mg Capsule 250 mg PO DAILY lorazepam 0.5 mg tablet 0.5 mg PO Q8 PRN (Reason: Agitation) lactase [Lactaid] 3,000 unit Tablet 3,000 unit PO QID PRN (Reason: dairy containing food) acetaminophen [Tylenol Extra Strength] 500 mg Tablet 500 mg PO BID Qty: 60 0RF tramadol 50 mg Tablet 25 mg PO BID melatonin 3 mg tablet 3 mg PO HS PRN (Reason: Insomnia) olanzapine 2.5 mg tablet 5 mg PO QAM Rx Instructions: 2 tablet dose olanzapine 2.5 mg tablet 7.5 mg PO HS Rx Instructions: 3 tablet dose Referrals Referrals: Lenka [email or web address] [Primary Care Provider] -
--- NOTE | 2025-05-08 11:06 | XRay Report ---
XR chest 1V portable CLINICAL HISTORY: weakness COMPARISON STUDY: 05/07/2025 FINDINGS: Single view portable chest is unchanged. A right diaphragmatic eventration with right basil ar discoid atelectasis is once again noted. There is some question of focal obscuration of the medial left hemidiaphragm with slight streaky increased density in the retrocardiac region suspicious for l eft basilar infiltrate. Heart size is slightly prominent with left ventricular prominence. Pulmonary vascularity is unremarkable. IMPRESSION: Small left basilar infiltrate could be pneumonia in the appropriate clinical context. ACT 112: Negative or not required by law. Electronically signed by: Sarah Chamberlain M.D. 05/08/2025 11:04 AM
[2025-05-08 11:23] LABS: Hematocrit (blood only) 40.2 % (42.0-52.0); Hemoglobin 13.4 g/dl (14.0-18.0); Immature Granulocytes # (auto) 0.02 K/uL (0.01-0.20); Immature Granulocytes % (auto) 0.3 %; Mean Corpuscular Hemoglobin 32.4 pg (25.0-34.0); Mean Corpuscular Volume 97.1 fL (80.0-100.0); Platelet Count 126 K/uL (130-400); RDW Standard Deviation 46.6 fL (36.4-46.3); Red Blood Count 4.14 M/uL (4.70-6.10); White Blood Count 6.86 K/ul (4.8-10.8)
[2025-05-08 11:39] LABS: Alanine Aminotransferase 18.0 U/L (7-52); Albumin Globulin Ratio 1.0 (0.9-2); Alkaline Phosphatase 36.0 U/L (34-104); Anion Gap 7.0 (3-11); Bilirubin,Total 0.9 mg/dl (0.2-1.0); Blood Urea Nitrogen 26.0 mg/dl (6-23); Calcium 9.1 mg/dl (8.6-10.3); Carbon Dioxide 29.0 mmol/L (21-32); Chloride 105.0 mmol/L (98-107); Creatine Kinase 264.0 U/L (30-223); Creatinine Clr Calc Pharmacy 62.0 ml/min; Globulin 3.7 gm/dl (2.5-4.0); Glucose 94.0 mg/dl (70-99(Fasting)); Magnesium 1.8 mg/dl (1.7-2.4); Potassium 3.6 mmol/L (3.5-5.1); Sodium 141.0 mmol/L (136-145); Total Protein 7.5 gm/dl (6.0-8.3)
[2025-05-08 11:43] LABS: INR 1.1 (0.9-1.1); Prothrombin Time 11.8 Seconds (9.0-12.0)
[2025-05-08 11:52] LABS: Thyroid Stimulating Hormone 1.975 uIu/ml (0.300-4.500)
[2025-05-08 12:15] LABS: Appearance Urine Clear (Clear); Bacteria Urine Automated None Seen (None Seen); Cast Urine Automated 0-2 /lpf (0-2); Epithelial Cell Urine Auto 0-2 /hpf (0-2); Glucose Urine UA Negative (Negative); RBC Urine Automated 0-2 /hpf (0-2); WBC Urine Automated 0-5 /hpf (0-5)
--- NOTE | 2025-05-08 14:30 | History & Physical Report ---
"Date of Service May 08, 2025 Assessment & Plan (1) Recurrent falls: (2) CKD (chronic kidney disease), stage III: (3) Dementia: (4) Hypertension: Plan Selvin is a 80M with a PMHx of anemia, CKD 3, Dementia with behavioral disturbances, BPH and LORRIE who presents with recurrent falls. Initial evaluation without leukocytosis, UA negative, VSS. CXR with possible RLL pneumonia, though he is asymptomatic and no findings consistent with pneumonia on physical exam. Family reports he has had a progressive decline x 1 month both cognitively and physically. They have gotten him a rolling walker and wheelchair that he is began using. He was admitted for PT/OT evaluation and possible placement in SNF. #Recurrent Falls | Dementia - Suspect secondary to dementia and unawareness getting out of his chair and overall physical deconditioning. Recently started being a wheelchair user - UA negative, but CXR possible PNA - will check procal and respiratory biofire. Patient is stable on room air on admission, antibiotics deferred - Continue scheduled olanzapine and Lexapro - Check orthostatic vital signs - Left elbow abrasion - local wound care - PT/OT - currently lives in [facility], suspect he may need SNF placement #CKD stage 3 - stable, avoid nephrotoxins #BPH, elevated PSA - continue Flomax #Hyperlipidemia - continue simvastatin #Gout - continue allopurinol #LORRIE - CPAP HS Dispo: admit to med/surg DVT proph: Lovenox - monitor platelets Family updated at bedside on admission 05/08 Reviewed outpatient records History of Present Illness Chief Complaint: Recurrent falls, Elevated CK, Elevated troponin Primary Care Provider: Lenka [facility] Selvin is a 80M with a PMHx of anemia, CKD 3, Dementia with behavioral disturbances, BPH and LORRIE who presents with recurrent falls. His , son, and daughter are at bedside and provide the history. He had 2 falls yesterday (05/07), seen in the ED after these falls and discharged back to his [facility] after a negative trauma workup. He had another fall again this morning when he was found on the floor of his room during med pass. His family says he has had an overall decline for the past 1 month he has gotten weaker and has needed a walker/wheelchair as well as some cognitive decline with family reporting he is starting to not make sense more frequently. Although he has had a progressive physical decline x 1 month, family does not recall him having any falls prior to yesterday. Family denies any recent respiratory symptoms, urinary symptoms, GI symptoms. They do say that his behaviors have been much improved since his medication adjustments during his last hospitalization here. Vitals on admission are stable. Labs on admission are significant for Hgb 13.4 (chronic anemiaat baseline), mildly low platelets at 126, slightly elevated CK at 264, and mildly elevated troponin at 23.4 that down trended to 21.8. No leukocytosis, UA unremarkable, TSH WNL. CXR on admission reveals small left basilar infiltrate that could represent pneumonia. We discussed code status, family reports Selvin wishes are to be DNR/DNI. This is consistent with his prior hospitalizations. Allergies Allergy/AdvReac Type Severity Reaction Status Date / Time codeine AdvReac NOSEBLEED Verified 05/08/25 15:23 Home Medications Medication Instructions Recorded Confirmed Type cholecalciferol (vitamin D3) 50 50 mcg PO QAM 12/22/20 05/08/25 History mcg (2,000 unit) capsule mecobalamin (vitamin B12) 1,000 1,000 mcg PO QAM 02/01/23 05/08/25 History mcg chewable tablet multivitamin 1 tab PO DAILY 07/04/24 05/08/25 History allopurinol 100 mg tablet 200 mg (2 x 100 mg) PO DAILY #180 10/26/24 05/08/25 Rx tabs tamsulosin 0.4 mg capsule 0.4 mg PO HS #90 caps 10/26/24 05/08/25 Rx olanzapine 2.5 mg tablet 2.5 mg PO BID PRN behavioral 01/16/25 05/08/25 Rx emergencies #5 tabs polyethylene glycol 3350 17 gram 17 g PO DAILY PRN constipation #14 01/16/25 05/08/25 Rx oral powder packet (Miralax) ea lactase 3,000 unit tablet (Lactaid) 3,000 unit PO QID PRN dairy 03/10/25 05/08/25 History containing food lorazepam 0.5 mg tablet 0.5 mg PO Q8 PRN Agitation 03/10/25 05/08/25 History acetaminophen 500 mg tablet 500 mg PO BID #60 tabs 03/15/25 05/08/25 Rx (Tylenol Extra Strength) melatonin 3 mg tablet 3 mg PO HS PRN Insomnia 05/07/25 05/08/25 History olanzapine 2.5 mg tablet 5 mg PO QAM 05/07/25 05/08/25 History olanzapine 2.5 mg tablet 7.5 mg PO HS 05/07/25 05/08/25 History tramadol 50 mg tablet 25 mg PO BID 05/07/25 05/08/25 History Saccharomyces boulardii 250 mg 250 mg PO DAILY 05/08/25 05/08/25 History capsule (Florastor) simvastatin 40 mg tablet 40 mg PO QAM 05/08/25 05/08/25 History Past Med/Surg History Problem List (Updated 05/09/25 @ 16:33 by Kirsten Lopez PA-C) Hypertension Elevated troponin (Acute) Elevated CK (Acute) Recurrent falls (Acute) Dementia (Acute) Unwitnessed fall (Acute) Hypotension Delirium due to multiple etiologies Sundowning Mild cognitive impairment B12 deficiency Trochanteric bursitis of right hip Right knee DJD Hip arthritis Vitamin D deficiency Subdural hygroma Chronic anemia History of inguinal herniorrhaphy Arthritis, multiple joint involvement (Chronic) Elevated PSA (Chronic) Dyslipidemia (Chronic) Low HDL (under 40) (Chronic) Medical History Dementia CKD (chronic kidney disease), stage III Enlarged prostate without lower urinary tract symptoms (luts) Hypertension Obstructive sleep apnea, adult COVID-19 Combative behavior Acute confusion Incarcerated right inguinal hernia Surgical History H/O oral surgery S/P knee surgery Left knee-1983 S/P hernia repair 1982-Inguinal hernia Family History Mother Brain tumor Hypertension Father Lymphoma Denies family history of Ovarian cancer Prostate cancer Myocardial infarction Breast cancer Colorectal cancer Social History Smoking Status: Never smoker Age Started Using Tobacco: 18; Age Quit Using Tobacco: 39; Cigarettes Per Day: 6-10; Second Hand Exposure: No; Do You Dip or Chew Tobacco: No; Hx Alcohol Use: No Hx Substance Use: No Preferred Language: Bulgarian Communication Ability: sleeping Visual Impairment: No Limitations Hearing Ability: Use of Hearing Aid Bank Teller Required: No Beliefs That Will Affect Care: None marital status: Current Living Situation: [facility] current occupational status: retired Other Information That Helps Us Care for You: No Feels Safe at Home: Yes Safety Concerns: Feels Safe At This Time Childhood Exposure to Second-Hand Smoke: Yes Diet: regular Diet Comment: regular caffeine: Yes (Coffee x 3-4 per day.) during the past year weight has: decreased > 10 lbs Dental Care, Regularly: No Physical Activity Frequency: 1-2 Times per Week Seatbelt Use: always Sunscreen Use: No Assistive Devices: Walker and Other Review of Systems Review of Systems: All systems reviewed & are unremarkable except as noted in HPI & below Physical Exam Physical Exam: General: No acute distress, nondiaphoretic. Drowsy but awakens easily. Frail elderly man. Skin: Warm, dry. Superficial abrasion to left elbow. No rashes noted. 1+ edema in lower extremities bilaterally. HEENT: Small area of swelling on the right side of his frontal bone. PERRLA. Cardiac: Regular rate and rhythm without murmurs gallops or rubs. Pulm: Clear to auscultation bilaterally without wheezes, rales or rhonchi. Normal respiratory effort. 95% on room air. Abdominal: Soft, nontender, nondistended. Bowel sounds present. No suprapubic tenderness. Neuro: A&O x1 (selfbaseline). No focal neurological deficits. Results & Data Results & Data Vital Signs (Past 12 Hours) Vital Signs Temp Pulse Resp BP Pulse Ox O2 Del Method 05/08/25 14:21 63 05/08/25 13:06 68 19 129/67 05/08/25 12:36 66 20 96 Room Air 05/08/25 11:30 77 20 129/69 94 Room Air 05/08/25 11:04 95 Room Air 05/08/25 10:42 83 22 141/75 H 94 Room Air 05/08/25 10:28 86 05/08/25 10:19 99.3 F 92 H 20 149/67 H 95 Room Air Laboratory Results cbc, chemisty, UA reviewed Diagnostic Findings Reviewed CXR Reviewed CXR, C-spine CT, head CT from ED visit yesterday Chest X-Ray 07/16/25 10:41 XR chest 1V portable CLINICAL HISTORY: weakness COMPARISON STUDY: 05/07/2025 FINDINGS: Single view portable chest is unchanged. 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 There is some question of focal obscuration of the medial left hemidiaphragm with slight streaky increased density in the retrocardiac region suspicious for left basilar infiltrate. Heart size is slightly prominent with left ventricular prominence. Pulmonary vascularity is unremarkable. IMPRESSION: Small left basilar infiltrate could be pneumonia in the appropriate clinical context. ACT 112: Negative or not required by law. Electronically signed by: Sarah Chamberlain M.D. 05/08/2025 11:04 AM Supervising Physician Co-Signing Physician Notes During face to face encounter, I obtained a history and physical examination, discussed plan of care with patient and answered any questions. I discussed plan of care with RORY Lopez. I reviewed above note and agree with it except for the following: Patient will be admitted for dementia and recurrent falls. Will hold antibiotics as no clear source for infection is noted. Consult PT/OT PG Care Time/CCT Total # of Minutes Spent Total Time Spent with Patient: Total time spent is greater than 50% in coordination of care (as documented) at patient's floor/unit and/or counseling patient: Coding Level of Care Code 63907 INT INP/OBS CARE 3/75MIN Diagnoses Recurrent falls R29.6 Stage 3a chronic kidney disease N18.31 Chronic kidney disease stage 3 subtype: stage 3a (GFR 45-59) Dementia F03.90 Primary hypertension I10 Hypertension type: primary hypertension (2) CKD (chronic kidney disease), stage III Chronic kidney disease stage 3 subtype: stage 3a (GFR 45-59) Qualified Code(s): N18.31 - Chronic kidney disease, stage 3a (4) Hypertension Hypertension type: primary hypertension Qualified Code(s): I10 - Essential (primary) hypertension"
[2025-05-08] MEDS ORDERED: ONDANSETRON INJ 2 MG/ML 2 ML VIAL IV PRN (16:14)
[2025-05-08] MEDS: LORazepam 0.5 MG TAB PO PRN (18:08)
[2025-05-08] MEDS: ACETAMINOPHEN 325 MG TAB PO PRN (18:21)
[2025-05-08 19:24] LABS: Chlamydia pneumoniae PCR Not Detected (NotDetected); Coronavirus 229E PCR Not Detected (NotDetected); Coronavirus CoV-2 (COVID19)PCR Not Detected (NotDetected); Coronavirus HKU1 PCR Not Detected (NotDetected); Coronavirus NL63 PCR Not Detected (NotDetected); Coronavirus OC43PCR Not Detected (NotDetected); Human Metapneumovirus PCR Not Detected (NotDetected); Parainfluenza Virus 1 PCR Not Detected (NotDetected); Parainfluenza Virus 2 PCR Not Detected (NotDetected); Parainfluenza Virus 3 PCR Not Detected (NotDetected); Parainfluenza Virus 4 PCR Not Detected (NotDetected); Respiratory Syncytial VirusPCR Not Detected (NotDetected); Rhinovirus/Enterovirus PCR Not Detected (NotDetected)
[2025-05-08] MEDS: MELATONIN 3 MG TAB PO PRN (20:16)
[2025-05-08] MEDS: OLANZAPINE 2.5 MG TAB PO SCH (20:16)
[2025-05-08] MEDS: TAMSULOSIN HCL 0.4 MG CAP PO SCH (20:16)
[2025-05-09] MEDS ORDERED: MICONAZOLE NITRATE POWDER 85 GM EXT PRN (01:21)
[2025-05-09] MEDS: SIMVASTATIN 40 MG TAB PO SCH (08:13)
[2025-05-09] MEDS: ENOXAPARIN INJ 40 MG/0.4 ML SYR SQ SCH (08:14)
[2025-05-09 09:28] LABS: Hematocrit (blood only) 37.9 % (42.0-52.0); Hemoglobin 13.0 g/dl (14.0-18.0); Immature Granulocytes # (auto) 0.01 K/uL (0.01-0.20); Immature Granulocytes % (auto) 0.1 %; Mean Corpuscular Hemoglobin 33.0 pg (25.0-34.0); Mean Corpuscular Volume 96.2 fL (80.0-100.0); Platelet Count 122 K/uL (130-400); RDW Standard Deviation 44.3 fL (36.4-46.3); Red Blood Count 3.94 M/uL (4.70-6.10); White Blood Count 7.06 K/ul (4.8-10.8)
[2025-05-09 09:44] LABS: Anion Gap 8.0 (3-11); Blood Urea Nitrogen 26.0 mg/dl (6-23); Calcium 8.7 mg/dl (8.6-10.3); Carbon Dioxide 27.0 mmol/L (21-32); Chloride 106.0 mmol/L (98-107); Creatinine Clr Calc Pharmacy 71.8 ml/min; Glucose 102.0 mg/dl (70-99(Fasting)); Potassium 3.5 mmol/L (3.5-5.1); Sodium 141.0 mmol/L (136-145)
--- NOTE | 2025-05-09 12:11 | XRay Report ---
XR chest 2V PA/lateral CLINICAL HISTORY: Eval for ?PNA on CXR 05/08. asymptomatic COMPARISON STUDY: 05/08/2025 FINDINGS: AP and lateral views of the chest demonstrate no acute cardiopulmonary process. The suspect ed left basilar infiltrate is not reproduced on today's examination and is not seen on the lateral vi ew. Diaphragmatic eventrations are noted. There is no pleural effusion. Heart size remains mildly enl arged. IMPRESSION: No acute process ACT 112: Negative or not required by law. Electronically signed by: Sarah Chamberlain M.D. 05/09/2025 12:10 PM
--- NOTE | 2025-05-09 12:28 | Hospitalist Progress Note ---
"Date of Service May 09, 2025 Assessment & Plan (1) Recurrent falls: (2) CKD (chronic kidney disease), stage III: (3) Dementia: (4) Hypertension: Plan Selvin is a 80M with a PMHx of anemia, CKD 3, Dementia with behavioral disturbances, BPH and LORRIE who presents with recurrent falls. Initial evaluation without leukocytosis, UA negative, VSS. CXR with possible RLL pneumonia, though he is asymptomatic and no findings consistent with pneumonia on physical exam. Family reports he has had a progressive decline x 1 month both cognitively and physically. They have gotten him a rolling walker and wheelchair that he is began using. He was admitted for PT/OT evaluation and possible placement in SNF. #Recurrent Falls | Dementia - Suspect secondary to dementia and unawareness getting out of his chair and overall physical deconditioning. Recently started being a wheelchair user - Initially with question of possible PNA on admission CXR, but repeat 2V CXR showed no acute process. Respiratory BioFire negative. UA negative. Procal negative. No leukocytosis, afebrile. Asymptomatic. Do not suspect there is an infectious process precipitating these falls - Orthostatic vital signs negative - Continue scheduled olanzapine and Lexapro - Left elbow abrasion - local wound care - PT/OT - currently lives in [facility], suspect he may need SNF placement; CM consulted for assistance with placement #CKD stage 3 - stable, avoid nephrotoxins #BPH, elevated PSA - continue Flomax #Hyperlipidemia - continue simvastatin #Gout - continue allopurinol #LORRIE - CPAP HS Dispo: PT/OT recommending SNF placement DVT proph: Lovenox - monitor platelets Ordered 2V CXR Consulted case management Updated family members at bedside Admission and Anticipated Discharge Date Admission Date: May 08, 2025 Supervising Physician Co-Signing Physician Notes Attending Attestation: Chart reviewed, care plan d/w LESLIE Lopez. I agree w/ the zaidi components of her documentation. Given h/o subdural hematomas/hygromas consider MRI brain - r/o subacute CVA, etc. Consider B1 level (whole blood). Vern Rodriguez MD Subjective Patient seen and evaluated at bedside. He was sleeping when I entered the room but aroused to my voice. He denies any complaints or concerns. He says he is tired and wants to go back to sleep. RN reports he initially refused his meds last night but later was agreeable to taking them. PT attempted to work with Ayad today but he was too sleepy, likely due to taking his medications late last night. No additional complaints or concerns at this time. Physical Exam Physical Exam: General: No acute distress, nondiaphoretic. Drowsy but awakens easily. Frail elderly man. Skin: Warm, dry. Superficial abrasion to left elbow. No rashes noted. 1+ edema in lower extremities bilaterally. HEENT: Small area of swelling on the right side of his frontal bone. PERRLA. Cardiac: Regular rate and rhythm without murmurs gallops or rubs. Pulm: Clear to auscultation bilaterally without wheezes, rales or rhonchi. Normal respiratory effort. 95% on room air. Abdominal: Soft, nontender, nondistended. Bowel sounds present. No suprapubic tenderness. Neuro: A&O x1 (selfbaseline). No focal neurological deficits. Results & Data Results & Data Vital Signs (Past 12 Hours) Vital Signs Temp Pulse Resp BP Pulse Ox O2 Del Method 05/09/25 07:45 Room Air 05/09/25 07:29 98.2 F 85 16 164/76 H 95 Room Air Laboratory Results Reviewed CBC with differential Reviewed BMP Reviewed biofire Diagnostic Findings Reviewed CXR Chest X-Ray 05/09/25 11:19 XR chest 2V PA/lateral CLINICAL HISTORY: Eval for ?PNA on CXR 05/08. asymptomatic COMPARISON STUDY: 05/08/2025 FINDINGS: AP and lateral views of the chest demonstrate no acute cardiopulmonary process. The suspected left basilar infiltrate is not reproduced on today's examination and is not seen on the lateral view. Diaphragmatic eventrations are noted. There is no pleural effusion. Heart size remains mildly enlarged. IMPRESSION: No acute process ACT 112: Negative or not required by law. Electronically signed by: Sarah Chamberlain M.D. 05/09/2025 12:10 PM PG Care Time/CCT Total # of Minutes Spent Total Time Spent with Patient: Total time spent is greater than 50% in coordination of care (as documented) at patient's floor/unit and/or counseling patient: Coding Level of Care Code 29511 SUB INP/OBS CARE 3/50MIN Diagnoses Recurrent falls R29.6 Stage 3a chronic kidney disease N18.31 Chronic kidney disease stage 3 subtype: stage 3a (GFR 45-59) Dementia F03.90 Primary hypertension I10 Hypertension type: primary hypertension (2) CKD (chronic kidney disease), stage III Chronic kidney disease stage 3 subtype: stage 3a (GFR 45-59) Qualified Code(s): N18.31 - Chronic kidney disease, stage 3a (4) Hypertension Hypertension type: primary hypertension Qualified Code(s): I10 - Essential (primary) hypertension"
--- NOTE | 2025-05-09 14:20 | Electrocardiogram Report ---
Test Reason : Blood Pressure : */* mmHG Vent. Rate : 80 BPM Atrial Rate : 80 BPM P-R Int : 172 ms QRS Dur : 142 ms QT Int : 404 ms P-R-T Axes : 68 -40 46 degrees QTcB Int : 465 ms Normal sinus rhythm Left axis deviation Right bundle branch block Abnormal ECG When compared with ECG of 07-May-2025 20:59, No significant change was found Confirmed by Carlos Solorio ([id number]) on 05/09/2025 2:20:08 PM Referred By: Confirmed By: Carlos Solorio
[2025-05-10] MEDS ORDERED: ALUMINUM/MAGNESIUM SUSP 30 ML UDC PO PRN (11:48)
--- NOTE | 2025-05-10 12:10 | Hospitalist Progress Note ---
"Date of Service May 10, 2025 Assessment & Plan (1) Recurrent falls: (2) CKD (chronic kidney disease), stage III: (3) Dementia: (4) Hypertension: Plan Selvin is a 80M with a PMHx of anemia, CKD 3, Dementia with behavioral disturbances, BPH and LORRIE who presents with recurrent falls. Initial evaluation without leukocytosis, UA negative, VSS. CXR with possible RLL pneumonia, though he is asymptomatic and no findings consistent with pneumonia on physical exam. Family reports he has had a progressive decline x 1 month both cognitively and physically. They have gotten him a rolling walker and wheelchair that he is began using. He was admitted for PT/OT evaluation and possible placement in SNF. #Recurrent Falls | Dementia - Suspect secondary to dementia and unawareness getting out of his chair and overall physical deconditioning. Recently started being a wheelchair user - Initially with question of possible PNA on admission CXR, but repeat 2V CXR showed no acute process. Respiratory BioFire negative. UA negative. Procal negative. No leukocytosis, afebrile. Asymptomatic. Do not suspect there is an infectious process precipitating these falls - Orthostatic vital signs negative - Continue scheduled olanzapine and Lexapro - Left elbow abrasion - local wound care - PT/OT - currently lives in [facility], suspect he may need SNF placement; CM consulted for assistance with placement #CKD stage 3 - stable, avoid nephrotoxins #BPH, elevated PSA - continue Flomax #Hyperlipidemia - continue simvastatin #Gout - continue allopurinol #LORRIE - CPAP HS Dispo: PT/OT recommending SNF placement DVT proph: Lovenox - monitor platelets Ordered Maalox PRN dyspepsia Admission and Anticipated Discharge Date Admission Date: May 08, 2025 Supervising Physician Co-Signing Physician Notes Attending Attestation: Chart reviewed, care plan d/w LESLIE Lopez. I agree w/ the zaidi components of her documentation. Vern Rodriguez MD Subjective Patient seen and evaluated at bedside. He is pleasantly confused in bed. He denies any complaints or concerns at this time. RN reports he had no issues overnight; he required some reminders to not get OOB this morning, but has remained calm and cooperative with his care. Physical Exam Physical Exam: General: No acute distress, nondiaphoretic. Drowsy but awakens easily. Frail elderly man. Skin: Warm, dry. Superficial abrasion to left elbow. No rashes noted. 1+ edema in lower extremities bilaterally. Cardiac: Regular rate and rhythm without murmurs gallops or rubs. Pulm: Clear to auscultation bilaterally without wheezes, rales or rhonchi. No rmal respiratory effort. 95% on room air. Abdominal: Soft, nontender, nondistended. Bowel sounds present. Neuro: A&O x1 (selfbaseline). No focal neurological deficits. Results & Data Results & Data Vital Signs (Past 12 Hours) Vital Signs Temp Pulse Resp BP Pulse Ox O2 Del Method 05/10/25 07:45 Room Air 05/10/25 07:43 98.2 F 89 16 151/69 H 95 Room Air PG Care Time/CCT Total # of Minutes Spent Total Time Spent with Patient: Total time spent is greater than 50% in coordination of care (as documented) at patient's floor/unit and/or counseling patient: Coding Level of Care Code 21892 SUB INP/OBS CARE 2/35MIN Diagnoses Recurrent falls R29.6 Stage 3a chronic kidney disease N18.31 Chronic kidney disease stage 3 subtype: stage 3a (GFR 45-59) Dementia F03.90 Primary hypertension I10 Hypertension type: primary hypertension (2) CKD (chronic kidney disease), stage III Chronic kidney disease stage 3 subtype: stage 3a (GFR 45-59) Qualified Code(s): N18.31 - Chronic kidney disease, stage 3a (4) Hypertension Hypertension type: primary hypertension Qualified Code(s): I10 - Essential (primary) hypertension"
[2025-05-11 07:33] LABS: Hematocrit (blood only) 37.4 % (42.0-52.0); Hemoglobin 12.5 g/dl (14.0-18.0); Mean Corpuscular Hemoglobin 32.2 pg (25.0-34.0); Mean Corpuscular Volume 96.4 fL (80.0-100.0); Platelet Count 135 K/uL (130-400); RDW Standard Deviation 44.1 fL (36.4-46.3); Red Blood Count 3.88 M/uL (4.70-6.10); White Blood Count 4.40 K/ul (4.8-10.8)
--- NOTE | 2025-05-11 09:07 | Hospitalist Progress Note ---
Date of Service May 11, 2025 Assessment & Plan (1) Recurrent falls: (2) CKD (chronic kidney disease), stage III: (3) Dementia: (4) Hypertension: Plan Selvin is a 80M with a PMHx of anemia, CKD 3, Dementia with behavioral disturbances, BPH and LORRIE who presents with recurrent falls. Initial evaluation without leukocytosis, UA negative, VSS. CXR with possible RLL pneumonia, though he is asymptomatic and no findings consistent with pneumonia on physical exam. Family reports he has had a progressive decline x 1 month both cognitively and physically. They have gotten him a rolling walker and wheelchair that he is began using. He was admitted for PT/OT evaluation and possible placement in SNF. He continues to require frequent reorientation and redirecting. #Recurrent Falls | Dementia - Suspect secondary to dementia and unawareness getting out of his chair and overall physical deconditioning. Recently started being a wheelchair user - Initially with question of possible PNA on admission CXR, but repeat 2V CXR showed no acute process. Respiratory BioFire negative. UA negative. Procal negative. No leukocytosis, afebrile. Asymptomatic. Do not suspect there is an infectious process precipitating these falls - Orthostatic vital signs negative - Continue scheduled olanzapine and Lexapro - Left elbow abrasion - local wound care - PT/OT - currently lives in [facility], suspect he may need SNF placement; CM consulted for assistance with placement #CKD stage 3 - stable, avoid nephrotoxins #BPH, elevated PSA - continue Flomax #Hyperlipidemia - continue simvastatin #Gout - continue allopurinol #LORRIE - CPAP HS Dispo: PT/OT recommending SNF placement. He continues to require frequent reorientation and redirecting. DVT proph: Lovenox Admission and Anticipated Discharge Date Admission Date: May 08, 2025 Subjective Patient seen and evaluated at bedside. He was calmly lying in bed watching TV. He reports "I've set this alarm off 5 or so times already today" (referring to the bed alarm). He was reminded to ring for his nurse if he needs to get up. RN reports he has been calm and cooperative with his care today. She has taken him on a few walks with his RW this morning. Overnight, he was restless with frequent attempts to get OOB, mild agitation towards staff that resolved with verbal redirection. He continues to require frequent reorientation and redirecting. No additional complaints or concerns at this time. Physical Exam Physical Exam: General: No acute distress, nondiaphoretic. Drowsy but awakens easily. Frail elderly man. Skin: Warm, dry. Superficial abrasion to left elbow. No rashes noted. 1+ edema in lower extremities bilaterally. Cardiac: Regular rate and rhythm without murmurs gallops or rubs. Pulm: Clear to auscultation bilaterally without wheezes, rales or rhonchi. Normal respiratory effort. 95% on room air. Abdominal: Soft, nontender, nondistended. Bowel sounds present. Neuro: A&O x1 (selfbaseline). No focal neurological deficits. Results & Data Results & Data Vital Signs (Past 12 Hours) Vital Signs Temp Pulse Resp BP Pulse Ox O2 Del Method 05/11/25 07:43 98.1 F 74 17 179/75 H 95 Room Air 05/10/25 22:02 156/74 H Laboratory Results Reviewed CBC PG Care Time/CCT Total # of Minutes Spent Total Time Spent with Patient: Total time spent is greater than 50% in coordination of care (as documented) at patient's floor/unit and/or counseling patient: Coding Level of Care Code 88066 SUB INP/OBS CARE 2/35MIN Diagnoses Recurrent falls R29.6 Stage 3a chronic kidney disease N18.31 Chronic kidney disease stage 3 subtype: stage 3a (GFR 45-59) Dementia F03.90 Primary hypertension I10 Hypertension type: primary hypertension (2) CKD (chronic kidney disease), stage III Chronic kidney disease stage 3 subtype: stage 3a (GFR 45-59) Qualified Code(s): N18.31 - Chronic kidney disease, stage 3a (4) Hypertension Hypertension type: primary hypertension Qualified Code(s): I10 - Essential (primary) hypertension
[2025-05-12 08:40] LABS: Hematocrit (blood only) 39.3 % (42.0-52.0); Hemoglobin 12.9 g/dl (14.0-18.0); Mean Corpuscular Hemoglobin 31.8 pg (25.0-34.0); Mean Corpuscular Volume 96.8 fL (80.0-100.0); Platelet Count 155 K/uL (130-400); RDW Standard Deviation 43.4 fL (36.4-46.3); Red Blood Count 4.06 M/uL (4.70-6.10); White Blood Count 4.85 K/ul (4.8-10.8)
--- NOTE | 2025-05-12 10:35 | Hospitalist Progress Note ---
"Date of Service May 12, 2025 Assessment & Plan (1) Recurrent falls: (2) CKD (chronic kidney disease), stage III: (3) Dementia: (4) Hypertension: Plan Selvin is a 80M with a PMHx of anemia, CKD 3, Dementia with behavioral disturbances, BPH and LORRIE who presents with recurrent falls. Initial evaluation without leukocytosis, UA negative, VSS. CXR with possible RLL pneumonia, though he is asymptomatic and no findings consistent with pneumonia on physical exam. Family reports he has had a progressive decline x 1 month both cognitively and physically. They have gotten him a rolling walker and wheelchair that he is began using. He was admitted for PT/OT evaluation and possible placement in SNF. He continues to require frequent reorientation and redirecting. #Recurrent Falls | Dementia - Suspect secondary to dementia and unawareness getting out of his chair and overall physical deconditioning. Recently started being a wheelchair user - Initially with question of possible PNA on admission CXR, but repeat 2V CXR showed no acute process. Respiratory BioFire negative. UA negative. Procal negative. No leukocytosis, afebrile. Asymptomatic. Do not suspect there is an infectious process precipitating these falls - Orthostatic vital signs negative - Continue scheduled olanzapine and Lexapro - Left elbow abrasion - local wound care - PT/OT - currently lives in [facility], suspect he may need SNF placement; CM consulted for assistance with placement #CKD stage 3 - stable, avoid nephrotoxins #BPH, elevated PSA - continue Flomax #Hyperlipidemia - continue simvastatin #Gout - continue allopurinol #LORRIE - CPAP HS Dispo: PT/OT recommending SNF placement. He continues to require frequent reorientation and redirecting. DVT proph: Lovenox Admission and Anticipated Discharge Date Admission Date: May 08, 2025 Supervising Physician Co-Signing Physician Notes Attending Attestation - Chart reviewed, care plan d/w LESLIE Lopez. I agree w/ the zaidi components of her documentation. Vern Rodriguez MD Subjective Patient seen and evaluated at bedside. He remains pleasantly confused. He is calmly lying in bed watching TV at this time. He denies any complaints or concerns. He slept on and off last night but was cooperative with his care. Continuing to wait for determination between [facility] vs SNF. Physical Exam Physical Exam: General: No acute distress, nondiaphoretic. Drowsy but awakens easily. Frail elderly man. Skin: Warm, dry. Superficial abrasion to left elbow. No rashes noted. 1+ edema in lower extremities bilaterally. Cardiac: Regular rate and rhythm without murmurs gallops or rubs. Pulm: Clear to auscultation bilaterally without wheezes, rales or rhonchi. Normal respiratory effort. 94% on room air. Abdominal: Soft, nontender, nondistended. Bowel sounds present. Neuro: A&O x1 (selfbaseline). No focal neurological deficits. Results & Data Results & Data Vital Signs (Past 12 Hours) Vital Signs Temp Pulse Resp BP Pulse Ox O2 Del Method 05/12/25 07:26 97.9 F 60 16 137/69 94 Room Air Laboratory Results Reviewed CBC PG Care Time/CCT Total # of Minutes Spent Total Time Spent with Patient: Total time spent is greater than 50% in coordination of care (as documented) at patient's floor/unit and/or counseling patient: Coding Level of Care Code 53371 SUB INP/OBS CARE 2/35MIN Diagnoses Recurrent falls R29.6 Stage 3a chronic kidney disease N18.31 Chronic kidney disease stage 3 subtype: stage 3a (GFR 45-59) Dementia F03.90 Primary hypertension I10 Hypertension type: primary hypertension (2) CKD (chronic kidney disease), stage III Chronic kidney disease stage 3 subtype: stage 3a (GFR 45-59) Qualified Code(s): N18.31 - Chronic kidney disease, stage 3a (4) Hypertension Hypertension type: primary hypertension Qualified Code(s): I10 - Essential (primary) hypertension"
[2025-05-13] MEDS: POLYETHYLENE (MIRALAX) 17 GM PACK PO PRN (08:12)
--- NOTE | 2025-05-13 12:32 | Hospitalist Progress Note ---
"Date of Service May 13, 2025 Assessment & Plan (1) Recurrent falls: (2) CKD (chronic kidney disease), stage III: (3) Dementia: (4) Hypertension: Plan Selvin is a 80M with a PMHx of anemia, CKD 3, Dementia with behavioral disturbances, BPH and LORRIE who presents with recurrent falls. Initial evaluation without leukocytosis, UA negative, VSS. CXR with possible RLL pneumonia, though he is asymptomatic and no findings consistent with pneumonia on physical exam. Family reports he has had a progressive decline x 1 month both cognitively and physically. They have gotten him a rolling walker and wheelchair that he is began using. He was admitted for PT/OT evaluation and possible placement in SNF. He continues to require frequent reorientation and redirecting. #Recurrent Falls | Dementia - Suspect secondary to dementia and unawareness getting out of his chair and overall physical deconditioning. Recently started being a wheelchair user - Initially with question of possible PNA on admission CXR, but repeat 2V CXR showed no acute process. Respiratory BioFire negative. UA negative. Procal negative. No leukocytosis, afebrile. Asymptomatic. Do not suspect there is an infectious process precipitating these falls - Orthostatic vital signs negative - Continue scheduled olanzapine and Lexapro - Left elbow abrasion - local wound care - PT/OT - currently lives in [facility], suspect he may need SNF placement; CM following #CKD stage 3 - stable, avoid nephrotoxins #BPH, elevated PSA - continue Flomax #Hyperlipidemia - continue simvastatin #Gout - continue allopurinol #LORRIE - CPAP HS Dispo: PT/OT recommending SNF placement. He continues to require frequent reorientation and redirecting. DVT proph: Lovenox Admission and Anticipated Discharge Date Admission Date: May 08, 2025 Supervising Physician Co-Signing Physician Notes Attending Attestation - Chart reviewed, care plan d/w LESLIE Burkett. I agree w/ the zaidi components of her documentation. Vern Rodriguez MD Subjective Patient seen sitting in the chair, we took a short lap around the unit. He has no complaints No family at bedside Review of Systems Review of Systems: All systems reviewed & are unremarkable except as noted in Subjective Physical Exam Physical Exam: General: NAD, vitals as above,abulating around the unit with supervsion assist Pulm: breathing unlabored CV: well perfused extremities: moves all extremities Results & Data Results & Data Vital Signs (Past 12 Hours) Vital Signs Temp Pulse Resp BP Pulse Ox O2 Del Method 05/13/25 07:21 98.2 F 98 H 16 187/63 H 95 Room Air PG Care Time/CCT Total # of Minutes Spent Total Time Spent with Patient: Total time spent is greater than 50% in coordination of care (as documented) at patient's floor/unit and/or counseling patient: Coding Level of Care Code 34913 SUB INP/OBS CARE 11/17MIN Diagnoses Recurrent falls R29.6 Stage 3a chronic kidney disease N18.31 Chronic kidney disease stage 3 subtype: stage 3a (GFR 45-59) Dementia F03.90 Primary hypertension I10 Hypertension type: primary hypertension (2) CKD (chronic kidney disease), stage III Chronic kidney disease stage 3 subtype: stage 3a (GFR 45-59) Qualified Code(s): N18.31 - Chronic kidney disease, stage 3a (4) Hypertension Hypertension type: primary hypertension Qualified Code(s): I10 - Essential (primary) hypertension"
--- NOTE | 2025-05-14 08:08 | Hospitalist Progress Note ---
"Date of Service May 14, 2025 Assessment & Plan (1) Recurrent falls: (2) CKD (chronic kidney disease), stage III: (3) Dementia: (4) Hypertension: Plan Selvin is a 80M with a PMHx of anemia, CKD 3, Dementia with behavioral disturbances, BPH and LORRIE who presents with recurrent falls. Initial evaluation without leukocytosis, UA negative, VSS. CXR with possible RLL pneumonia, though he is asymptomatic and no findings consistent with pneumonia on physical exam. Family reports he has had a progressive decline x 1 month both cognitively and physically. They have gotten him a rolling walker and wheelchair that he is began using. He was admitted for PT/OT evaluation and possible placement in SNF. #Recurrent Falls | Dementia - Suspect secondary to dementia and unawareness getting out of his chair and overall physical deconditioning. Recently started being a wheelchair user - UA negative, but CXR possible PNA - will check procal and respiratory biofire. 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 He was not able to hold a conversation with me. Trying to go for a walk. Nurses aide in the room Review of Systems Review of Systems: Unobtainable due to cognitive status Physical Exam Physical Exam: General: Confused but pleasant. Unable to hold a conversation. Heart: S1, S2/regular rate and rhythm, no murmur rubs or gallops Lungs: Clear to auscultation bilaterally. Normal effort Abdomen: Soft/nontender/nondistended. No hepatosplenomegaly Extremities: No clubbing/cyanosis. No edema Behavior: cooperative Results & Data Results & Data Vital Signs (Past 12 Hours) Vital Signs Temp Pulse Resp BP Pulse Ox O2 Del Method 05/14/25 07:18 37 C 87 18 154/75 H 94 Room Air 05/14/25 00:04 36.6 C 75 16 132/67 94 Room Air PG Care Time/CCT Total # of Minutes Spent Total Time Spent with Patient: Total time spent is greater than 50% in coordination of care (as documented) at patient's floor/unit and/or counseling patient: Coding Level of Care Code 53282 SUB INP/OBS CARE 2/35MIN Diagnoses Recurrent falls R29.6 Stage 3a chronic kidney disease N18.31 Chronic kidney disease stage 3 subtype: stage 3a (GFR 45-59) Dementia F03.90 Primary hypertension I10 Hypertension type: primary hypertension (2) CKD (chronic kidney disease), stage III Chronic kidney disease stage 3 subtype: stage 3a (GFR 45-59) Qualified Code(s): N18.31 - Chronic kidney disease, stage 3a (4) Hypertension Hypertension type: primary hypertension Qualified Code(s): I10 - Essential (primary) hypertension"
[2025-05-14 17:38] LABS: Hematocrit (blood only) 38.0 % (42.0-52.0); Hemoglobin 13.1 g/dl (14.0-18.0); Mean Corpuscular Hemoglobin 32.7 pg (25.0-34.0); Mean Corpuscular Volume 94.8 fL (80.0-100.0); Platelet Count 211 K/uL (130-400); RDW Standard Deviation 42.9 fL (36.4-46.3); Red Blood Count 4.01 M/uL (4.70-6.10); White Blood Count 5.98 K/ul (4.8-10.8)
[2025-05-14 17:55] LABS: Anion Gap 8.0 (3-11); Blood Urea Nitrogen 24.0 mg/dl (6-23); Calcium 9.1 mg/dl (8.6-10.3); Carbon Dioxide 29.0 mmol/L (21-32); Chloride 104.0 mmol/L (98-107); Creatinine Clr Calc Pharmacy 64.7 ml/min; Glucose 133.0 mg/dl (70-99(Fasting)); Magnesium 1.9 mg/dl (1.7-2.4); Potassium 3.7 mmol/L (3.5-5.1); Sodium 141.0 mmol/L (136-145)
[2025-05-15] MEDS: OLANZAPINE 2.5 MG TAB PO PRN (15:06)
--- NOTE | 2025-05-15 15:37 | Hospitalist Progress Note ---
"Date of Service May 15, 2025 Assessment & Plan (1) Recurrent falls: (2) CKD (chronic kidney disease), stage III: (3) Dementia: (4) Hypertension: Plan Selvin is a 80M with a PMHx of anemia, CKD 3, Dementia with behavioral disturbances, BPH and LORRIE who presents with recurrent falls. Initial evaluation without leukocytosis, UA negative, VSS. CXR with possible RLL pneumonia, though he is asymptomatic and no findings consistent with pneumonia on physical exam. Family reports he has had a progressive decline x 1 month both cognitively and physically. They have gotten him a rolling walker and wheelchair that he is began using. He was admitted for PT/OT evaluation and possible placement in SNF. He continues to require frequent reorientation and redirecting. #Recurrent Falls | Dementia - Suspect secondary to dementia and unawareness getting out of his chair and overall physical deconditioning. Recently started being a wheelchair user - Initially with question of possible PNA on admission CXR, but repeat 2V CXR showed no acute process. Respiratory BioFire negative. UA negative. Procal negative. No leukocytosis, afebrile. Asymptomatic. Do not suspect there is an infectious process precipitating these falls - Orthostatic vital signs negative - Continue scheduled olanzapine and Lexapro - Left elbow abrasion - local wound care - PT/OT - currently lives in [facility], he will need SNF placement; CM working on it #CKD stage 3 - stable, avoid nephrotoxins #BPH, elevated PSA - continue Flomax #Hyperlipidemia - continue simvastatin #Gout - continue allopurinol #LORRIE - CPAP HS Dispo: PT/OT recommending SNF placement. He continues to require frequent reorientation and redirecting. DVT proph: Lovenox Admission and Anticipated Discharge Date Admission Date: May 08, 2025 Subjective Patient feels well. Denies chest pain or shortness of breath. Per nurse, he has been restless. Review of Systems Review of Systems: All systems reviewed & are unremarkable except as noted in Subjective Physical Exam Physical Exam: General: Confused but pleasant. Unable to hold a conversation. Heart: S1, S2/regular rate and rhythm, no murmur rubs or gallops Lungs: Clear to auscultation bilaterally. Normal effort Abdomen: Soft/nontender/nondistended. No hepatosplenomegaly Extremities: No clubbing/cyanosis. No edema Behavior: cooperative during my encounter Results & Data Results & Data Vital Signs (Past 12 Hours) Vital Signs Temp Pulse Pulse Resp BP BP Pulse Ox 05/15/25 07:26 36.5 C 58 L 16 112/62 95 05/15/25 07:18 36.9 C 59 L 18 127/63 94 O2 Del Method 05/15/25 07:26 Room Air 05/15/25 07:18 Room Air Laboratory Results Abnormal lab results 05/14/25 Range/Units 17:27 RBC 4.01 L (4.70-6.10) M/uL Hgb 13.1 L (14.0-18.0) g/dl Hct 38.0 L (42.0-52.0) % BUN 24 H (6-23) mg/dl BUN/Creatinine Ratio 26.4 H (10-20) Glucose 133 H (70-99(Fasting)) mg/dl PG Care Time/CCT Total # of Minutes Spent Total Time Spent with Patient: Total time spent is greater than 50% in coordination of care (as documented) at patient's floor/unit and/or counseling patient: Coding Level of Care Code 08940 SUB INP/OBS CARE 2/35MIN Diagnoses Recurrent falls R29.6 Stage 3a chronic kidney disease N18.31 Chronic kidney disease stage 3 subtype: stage 3a (GFR 45-59) Dementia F03.90 Primary hypertension I10 Hypertension type: primary hypertension (2) CKD (chronic kidney disease), stage III Chronic kidney disease stage 3 subtype: stage 3a (GFR 45-59) Qualified Code(s): N18.31 - Chronic kidney disease, stage 3a (4) Hypertension Hypertension type: primary hypertension Qualified Code(s): I10 - Essential (primary) hypertension"
[2025-05-16 07:39] VITALS: O2SAT 97
--- NOTE | 2025-05-16 13:46 | Hospitalist Progress Note ---
"Date of Service May 16, 2025 Assessment & Plan (1) Recurrent falls: (2) CKD (chronic kidney disease), stage III: (3) Dementia: (4) Hypertension: Plan Selvin is a 80M with a PMHx of anemia, CKD 3, Dementia with behavioral disturbances, BPH and LORRIE who presents with recurrent falls. Initial evaluation without leukocytosis, UA negative, VSS. CXR with possible RLL pneumonia, though he is asymptomatic and no findings consistent with pneumonia on physical exam. Family reports he has had a progressive decline x 1 month both cognitively and physically. They have gotten him a rolling walker and wheelchair that he is began using. He was admitted for PT/OT evaluation and possible placement in SNF. He continues to require frequent reorientation and redirecting. #Recurrent Falls | Dementia - Suspect secondary to dementia and unawareness getting out of his chair and overall physical deconditioning. Recently started being a wheelchair user - Initially with question of possible PNA on admission CXR, but repeat 2V CXR showed no acute process. Respiratory BioFire negative. UA negative. Procal negative. No leukocytosis, afebrile. Asymptomatic. Do not suspect there is an infectious process precipitating these falls - Orthostatic vital signs negative - Continue scheduled olanzapine and Lexapro - Left elbow abrasion - local wound care - PT/OT - currently lives in [facility], he will need SNF placement; CM working on it #CKD stage 3 - stable, avoid nephrotoxins #BPH, elevated PSA - continue Flomax #Hyperlipidemia - continue simvastatin #Gout - continue allopurinol #LORRIE - CPAP HS Dispo: PT/OT recommending SNF placement. He continues to require frequent reorientation and redirecting. DVT proph: Lovenox Admission and Anticipated Discharge Date Admission Date: May 08, 2025 Subjective Patient is confused. No complaints. Nurse says that he does well when he is taken on a wheelchair ride down the hallway Review of Systems Review of Systems: Unobtainable due to cognitive status Physical Exam Physical Exam: General: Confused but pleasant. Unable to hold a conversation. Heart: S1, S2/regular rate and rhythm, no murmur rubs or gallops Lungs: Clear to auscultation bilaterally. Normal effort Abdomen: Soft/nontender/nondistended. No hepatosplenomegaly Extremities: No clubbing/cyanosis. No edema Behavior: cooperative during my encounter Results & Data Results & Data Vital Signs (Past 12 Hours) Vital Signs Temp Pulse Resp BP Pulse Ox O2 Del Method 05/16/25 07:39 36.2 C L 86 18 156/63 H 97 Room Air PG Care Time/CCT Total # of Minutes Spent Total Time Spent with Patient: Total time spent is greater than 50% in coordination of care (as documented) at patient's floor/unit and/or counseling patient: Coding Level of Care Code 74766 SUB INP/OBS CARE 2/35MIN Diagnoses Recurrent falls R29.6 Stage 3a chronic kidney disease N18.31 Chronic kidney disease stage 3 subtype: stage 3a (GFR 45-59) Dementia F03.90 Primary hypertension I10 Hypertension type: primary hypertension (2) CKD (chronic kidney disease), stage III Chronic kidney disease stage 3 subtype: stage 3a (GFR 45-59) Qualified Code(s): N18.31 - Chronic kidney disease, stage 3a (4) Hypertension Hypertension type: primary hypertension Qualified Code(s): I10 - Essential (primary) hypertension"
[2025-05-16 15:30] VITALS: RESP 16
[2025-05-17 08:05] VITALS: TEMP 98.2
[2025-05-17 16:00] VITALS: BP 124/68
--- NOTE | 2025-05-17 16:39 | Discharge Summary ---
"Date of Service May 17, 2025 Admission HPI Per Admitting Provider Selvin is a 80M with a PMHx of anemia, CKD 3, Dementia with behavioral disturbances, BPH and LORRIE who presents with recurrent falls. His , son, and daughter are at bedside and provide the history. He had 2 falls yesterday (05/07), seen in the ED after these falls and discharged back to his H after a negative trauma workup. He had another fall again this morning when he was found on the floor of his room during med pass. His family says he has had an overall decline for the past 1 month he has gotten weaker and has needed a walker/wheelchair as well as some cognitive decline with family reporting he is starting to not make sense more frequently. Although he has had a progressive physical decline x 1 month, family does not recall him having any falls prior to yesterday. Family denies any recent respiratory symptoms, urinary symptoms, GI symptoms. They do say that his behaviors have been much improved since his medication adjustments during his last hospitalization here. Vitals on admission are stable. Labs on admission are significant for Hgb 13.4 (chronic anemiaat baseline), mildly low platelets at 126, slightly elevated CK at 264, and mildly elevated troponin at 23.4 that down trended to 21.8. No leukocytosis, UA unremarkable, TSH WNL. CXR on admission reveals small left basilar infiltrate that could represent pneumonia. We discussed code status, family reports Selvin wishes are to be DNR/DNI. This is consistent with his prior hospitalizations. Principal Diagnosis Recurrent falls due to worsening dementia Discharge Exam General: Confused but pleasant. Unable to hold a conversation. Heart: S1, S2/regular rate and rhythm, no murmur rubs or gallops Lungs: Clear to auscultation bilaterally. Normal effort Abdomen: Soft/nontender/nondistended. No hepatosplenomegaly Extremities: No clubbing/cyanosis. No edema Behavior: cooperative during my encounter Discharge Data Allergies Allergy/AdvReac Type Severity Reaction Status Date / Time codeine AdvReac NOSEBLEED Verified 05/08/25 15:23 Consultations 05/08/25 14:21 ED Decision to Admit Stat Ordered Studies Chest X-Ray 05/08/25 10:41 XR chest 1V portable CLINICAL HISTORY: weakness COMPARISON STUDY: 05/07/2025 FINDINGS: Single view portable chest is unchanged. 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 There is some question of focal obscuration of the medial left hemidiaphragm with slight streaky increased density in the retrocardiac region suspicious for left basilar infiltrate. Heart size is slightly prominent with left ventricular prominence. Pulmonary vascularity is unremarkable. IMPRESSION: Small left basilar infiltrate could be pneumonia in the appropriate clinical context. ACT 112: Negative or not required by law. Electronically signed by: Sarah Chamberlain M.D. 05/08/2025 11:04 AM Chest X-Ray 05/09/25 11:19 XR chest 2V PA/lateral CLINICAL HISTORY: Eval for ?PNA on CXR 05/08. asymptomatic COMPARISON STUDY: 05/08/2025 FINDINGS: AP and lateral views of the chest demonstrate no acute cardiopulmonary process. The suspected left basilar infiltrate is not reproduced on today's examination and is not seen on the lateral view. Diaphragmatic eventrations are noted. There is no pleural effusion. Heart size remains mildly enlarged. IMPRESSION: No acute process ACT 112: Negative or not required by law. Electronically signed by: Sarah Chamberlain M.D. 05/09/2025 12:10 PM Hospital Course (1) Recurrent falls: (2) CKD (chronic kidney disease), stage III: (3) Dementia: (4) Hypertension: Haja Montalvo is a 80M with a PMHx of anemia, CKD 3, Dementia with behavioral disturbances, BPH and LORRIE who presents with recurrent falls. Initial evaluation without leukocytosis, UA negative, VSS. CXR with possible RLL pneumonia, though he is asymptomatic and no findings consistent with pneumonia on physical exam. Family reports he has had a progressive decline x 1 month both cognitively and physically. They have gotten him a rolling walker and wheelchair that he is began using. He was admitted for PT/OT evaluation and possible placement in SNF. He continues to require frequent reorientation and redirecting. #Recurrent Falls | Dementia - Suspect secondary to dementia and unawareness getting out of his chair and overall physical deconditioning. Recently started being a wheelchair user - Initially with question of possible PNA on admission CXR, but repeat 2V CXR showed no acute process. Respiratory BioFire negative. UA negative. Procal negative. No leukocytosis, afebrile. Asymptomatic. Do not suspect there is an infectious process precipitating these falls - Orthostatic vital signs negative - Continue scheduled olanzapine and Lexapro - Left elbow abrasion - local wound care - PT/OT initially recommended SNF but was declined by insurance [facility] can take care of him #CKD stage 3 - stable, avoid nephrotoxins #BPH, elevated PSA - continue Flomax #Hyperlipidemia - continue simvastatin #Gout - continue allopurinol #LORRIE - CPAP HS Discharge to personal-[facility] today Total Time Total Time Spent Total Time Spent (In Minutes): 35 Discharge Plan Discharge Items Patient Disposition: Personal Custodial Reason For Visit: RECURRENT FALLS Discharge Diagnosis: Recurrent falls Generalized deconditioning Dementia Condition on Discharge: Fair Activity: Resume your previous activity Non-emergency contact: Primary Care Provider Call non-emergency contact if: you have any medication questions and your symptoms worsen Follow-up/Referrals: Lenka becker[place]ellton [Primary Care Provider] - Diet: Heart Healthy Addtl Attending Provider Instructions: Advised to follow-up with PCP in 1 week Pending Studies at Discharge: No Stand-Alone Forms: [employer] Clothes, Smoking Cessation Skilled Items Patient informed of condition?: Yes DNR: Yes Discharge Level of Care: Skilled Communicable Disease: No Discharge Prognosis: Stable Lines: None Urinary Catheter: No Medications and DC Order Prescriptions: Continued allopurinol 100 mg tablet 200 mg PO DAILY Qty: 180 3RF tamsulosin 0.4 mg capsule 0.4 mg PO HS Qty: 90 3RF mecobalamin (vitamin B12) 1,000 mcg tablet,chewable 1,000 mcg PO QAM cholecalciferol (vitamin D3) 50 mcg (2,000 unit) capsule 50 mcg PO QAM multivitamin Tablet 1 tab PO DAILY polyethylene glycol 3350 [Miralax] 17 gram Powder In Packet 17 g PO DAILY PRN (Reason: constipation) Qty: 14 0RF olanzapine 2.5 mg Tablet 2.5 mg PO BID PRN (Reason: behavioral emergencies) Qty: 5 0RF lorazepam 0.5 mg tablet 0.5 mg PO Q8 PRN (Reason: Agitation) lactase [Lactaid] 3,000 unit Tablet 3,000 unit PO QID PRN (Reason: dairy containing food) acetaminophen [Tylenol Extra Strength] 500 mg Tablet 500 mg PO BID Qty: 60 0RF Saccharomyces boulardii [Florastor] 250 mg Capsule 250 mg PO DAILY simvastatin 40 mg tablet 40 mg PO QAM tramadol 50 mg Tablet 25 mg PO BID melatonin 3 mg tablet 3 mg PO HS PRN (Reason: Insomnia) olanzapine 2.5 mg tablet 5 mg PO QAM Rx Instructions: 2 tablet dose olanzapine 2.5 mg tablet 7.5 mg PO HS Rx Instructions: 3 tablet dose Discharge Orders: Discharge Order (Routine); Ordered 05/17/25 Ordered By: Haylee Ayala Admission Data Admit Date/Time: 05/08/25 14:34 Attending Provider: Haylee Ayala Admit Provider: Keyshawn Bailey Primary Care Provider: Lenka becker[place]ell[place] Other Providers: Vern Rodriguez; [place]; Diane Arrieta at [place]"
[2025-05-17 16:53] VITALS: PULSE 65
== END 2025-05-17 19:04 | disposition home or self-care (01) | DRG 884 ==
LOC: ED 10:09 → SUATTDRO 14:34 → INTOOBSV 14:34 → 3N 14:34